=== PATIENT | male | born 1965 | race Caucasian/White ===

== ENCOUNTER 2024-06-10 22:13 | Inpatient (IN) | payer MEDICARE, SELFPAY ==
--- NOTE | ~2024-06-10 | XR_ITS ---
EXAMINATION: XR ABDOMEN KUB CLINICAL INDICATION: Constipation. COMPARISON: None available. TECHNIQUE: AP view of the abdomen. FINDINGS: The bowel gas pattern is normal with no evidence of ileus or obstruction. There are scattered retained stool. No unusual soft tissue calcifications are noted. The bones are unremarkable. XR/XR KUB IMPRESSION: Nonobstructive bowel gas pattern. Scattered retained stool. Electronically signed by: Sam Jimenez MD 06/11/2024 01:57 AM EDT
--- NOTE | ~2024-06-10 | US_ITS ---
EXAMINATION: US SCROTUM CLINICAL INFORMATION: Scrotal swelling and pain.. COMPARISON: None available. TECHNIQUE: A sonogram of the scrotum was performed assessing govea-scale appearance and color Doppler flow. Spectral Doppler analysis of the arterial and venous flow were performed in the testes bilaterally. FINDINGS: RIGHT: Right testicle measures 4.0 x 2.0 x 2.8 cm, volume 12 mL. Question few right testicular microliths. No suspicious focal testicular parenchymal lesions are visualized. Spectral Doppler analysis of the arterial and venous flow is normal in the right testis. Right epididymal head is normal in size. Two, 0.7 cm or less right epididymal cysts versus spermatoceles. No significant right hydrocele No varicocele is seen. Right epididymal Doppler flow is normal. LEFT: Left testicle measures 3.4 x 2.6 x 3.3 cm, volume 15 mL. No focal testicular parenchymal lesions are visualized. Spectral Doppler analysis of the arterial and venous flow is normal in the left testis. Left epididymal head is normal in size. Moderate left hydrocele demonstrating low level internal echoes. No varicocele is seen. Left epididymal Doppler flow is normal. US/US scrotum doppler IMPRESSION: Moderate left hydrocele demonstrating low level internal echoes, probably chronic. Additional findings, as above. Electronically signed by: Troy Willett MD 06/14/2024 04:29 PM EDT RP
--- NOTE | ~2024-06-10 | XR_ITS ---
EXAMINATION: XR ABDOMEN KUB CLINICAL INDICATION: Constipation. COMPARISON: Abdomen radiograph 06/10/2024. TECHNIQUE: AP view of the abdomen. FINDINGS: Nonobstructive bowel gas pattern. Mild to moderate amount of radiodense stool in the rectum. No significant colonic stool burden. No unusual soft tissue calcifications. Partially seen median sternotomy. No acute osseous findings. XR/XR KUB IMPRESSION: Nonobstructive bowel gas pattern. Mild to moderate amount of radiodense stool in the rectum. Electronically signed by: Lorrie Pacheco MD 06/17/2024 03:19 PM EDT
--- NOTE | ~2024-06-10 | CT_ITS ---
CT HEAD WITHOUT IV CONTRAST CLINICAL INFORMATION: seizure COMPARISON: Prior CT scan June 11, 2024 TECHNIQUE: Department standard protocol. This CT examination was performed using dose optimization techniques as appropriate, variously including the following: *Automated exposure control *Adjustment of mA and/or kV according to patient size (this includes techniques or standardized protocols for targeted exams where dose is matched to indication/reason for exam; i.e. extremities or head) *Use of iterative reconstruction technique DLP: 1036 mGy-cm FINDINGS: Exam limited by motion artifact. CEREBRAL HEMISPHERES: There is no evidence of intra-axial or extra-axial mass, hemorrhage or acute infarct. BRAIN PARENCHYMA: Normal govea-white matter differentiation. SUBDURAL SPACE: No bleed. BASAL GANGLIA AND PINEAL GLAND: Unremarkable VENTRICLES: Symmetric and normal in size. CEREBELLUM AND BRAINSTEM: No space-occupying mass, hemorrhage or acute infarct. CEREBELLOPONTINE ANGLES: No lesion found. ORBITS: No intraorbital mass. VESSELS: Unremarkable SKULL BASE: Unremarkable INCLUDED SINUSES AT SKULL BASE: Clear SKULL AND SKIN: No fracture or bone lesion found. CT/CT head/brain wo IV con IMPRESSION: 1. Markedly limited nondiagnostic exam due to motion artifact. 2. No definite CT evidence of intracranial space-occupying mass, large bleed . If patient is symptomatic would recommend repeat of this exam in 24 hours. Electronically signed by: Ling Rodgers MD 06/26/2024 10:24 AM EDT
--- NOTE | ~2024-06-10 | CT_ITS ---
EXAMINATION: CT HEAD WITHOUT CONTRAST CLINICAL INFORMATION: Fall. COMPARISON: None available. TECHNIQUE: Contiguous axial imaging was performed from the skull base to vertex without intravenous administration of contrast. This CT examination was performed using dose optimization techniques as appropriate, variously including the following: *Automated exposure control *Adjustment of mA and/or kV according to patient size (this includes techniques or standardized protocols for targeted exams where dose is matched to indication/reason for exam; i.e. extremities or head) *Use of iterative reconstruction technique DLP: 784 mGy-cm FINDINGS: There is no acute intracranial hemorrhage. There is no evidence of acute/subacute cerebral or cerebellar infarction. There is no midline shift or mass effect. No extra-axial fluid collection. The ventricles are normal in size. The orbits are symmetric and within normal limits. The calvarium is intact. The mastoid air cells are well aerated. There is scattered ethmoid air cell mucosal disease. There is maxillary sinus mucosal disease. CT/CT head/brain wo IV con IMPRESSION: No acute intracranial pathology. Electronically signed by: Vasquez Ortega DO 06/11/2024 04:55 PM EDT
--- NOTE | ~2024-06-10 | US_ITS ---
EXAMINATION: US SCROTUM CLINICAL INFORMATION: Scrotal swelling and pain.. COMPARISON: None available. TECHNIQUE: A sonogram of the scrotum was performed assessing govea-scale appearance and color Doppler flow. Spectral Doppler analysis of the arterial and venous flow were performed in the testes bilaterally. FINDINGS: RIGHT: Right testicle measures 4.0 x 2.0 x 2.8 cm, volume 12 mL. Question few right testicular microliths. No suspicious focal testicular parenchymal lesions are visualized. Spectral Doppler analysis of the arterial and venous flow is normal in the right testis. Right epididymal head is normal in size. Two, 0.7 cm or less right epididymal cysts versus spermatoceles. No significant right hydrocele No varicocele is seen. Right epididymal Doppler flow is normal. LEFT: Left testicle measures 3.4 x 2.6 x 3.3 cm, volume 15 mL. No focal testicular parenchymal lesions are visualized. Spectral Doppler analysis of the arterial and venous flow is normal in the left testis. Left epididymal head is normal in size. Moderate left hydrocele demonstrating low level internal echoes. No varicocele is seen. Left epididymal Doppler flow is normal. US/US scrotum IMPRESSION: Moderate left hydrocele demonstrating low level internal echoes, probably chronic. Additional findings, as above. Electronically signed by: Troy Willett MD 06/14/2024 04:29 PM EDT RP
[2024-06-10 22:19] VITALS: BP 116/70; PULSE 72; O2SAT 96
[2024-06-10 22:23] VITALS: BMI 25.5
[2024-06-10 22:24] VITALS: BP 112/69; PULSE 72; RESP 16; TEMP 36.6; O2SAT 100
--- NOTE | 2024-06-10 22:31 | ECG_ITS ---
Test Reason : QTC Blood Pressure : / mmHG Vent. Rate : 066 BPM Atrial Rate : 066 BPM P-R Int : 202 ms QRS Dur : 086 ms QT Int : 410 ms P-R-T Axes : 009 044 061 degrees QTc Int : 429 ms Normal sinus rhythm Normal ECG When compared with ECG of 11-JAN-2015 14:48, No significant change was found Referred By: Martine Marcano Electronically Signed By:BALAJI MOE
--- NOTE | 2024-06-10 22:47 | ED.PSYCH ---
HPI - Psych General Chief Complaint: Psychiatric Symptoms Stated Complaint: behavioral eval. from dementia facility Time Seen by Provider: 06/10/24 22:25 Source: family, EMS and old records reviewed Mode of arrival: EMS Limitations: altered mental status History of Present Illness ED Provider: OTONIEL LEYVA Narrative: 59 yo male with PMH of MV replacement on xarelto, HTN, HLD, frontotemporal dementia at memory unit currently he is on seroquel and abillify and escitalopram. mentioned trazodone but I do not see it on his MAR from SNF. He comes in with c/o worsening aggression and violence towards staff. He just had negative urine culture done as well. He grabbed staff by the shoulders. They understand this might be the disease progression but they are concerned about managing his behaviors and current med regimen is not working MD complaint: other (agitation) Onset (ago): week(s) (few) Duration: getting worse History of same: Yes Relieving factors: none Exacerbating factors: none Context: other Associated psychiatric symptoms: none Associated symptoms: other ( noted some new urinary incontinence so UA was checked and negative) Treatments prior to arrival: none Related Data Allergies Allergy/AdvReac Type Severity Reaction Status Date / Time No Known Allergies Allergy Verified 06/10/24 22:24 [No Known Allergies*] Review of Systems Review of Systems: ROS unable to be obtained due to altered mental status [facility] [place] Past Medical History Source: old records reviewed and obtained from family Medical History Hyperlipidemia HTN (hypertension) Frontotemporal dementia Surgical History Mitral valve replaced Social History Social History (Updated 06/10/24 @ 22:53 by Martine Marcano DO) Unable to assess alcohol history related to: Unable to respond Patient Tobacco Use Status: Tobacco use Unknown Smoked in Last 30 Days: No Use of substances other than those prescribed or required for medical reasons: Unable to respond Advance Directives: Yes Advance Directives Information Provided: No Advance Directives on File: No Physical Exam Vital Signs: Vital Signs: Last Vital Signs Temp 97.8 F 06/10/24 22:24 Pulse 72 06/10/24 22:24 Resp 16 06/10/24 22:24 BP 112/69 06/10/24 22:24 Pulse Ox 100 06/10/24 22:24 O2 Del Method Room Air 06/10/24 22:24 BMI result Body Mass Index 25.5 Appearance: Alert. Seems to recognize family but otherwise not oriented. No acute distress. Eyes: Pupils equal, round and reactive to light. ENT: Pharynx normal. atraumatic, birthmark at left eyebrown Neck: Normal inspection. Neck supple. CVS: Normal heart rate and rhythm. Pulses normal. Respiratory: No respiratory distress. Breath sounds normal. Abdomen: Soft and non-tender. Skin: Skin warm and dry. Normal skin color. Extremities: No lower extremity edema. Neuro: cannot participate No motor deficit. No sensory deficit. Course Course Course Narrative: signed out to Dr. Kumar pending UA/KUB result Medical Decision Making Medical Decision Making [facility] Narrative: 59 yo male with PMH of MV replacement on xarelto, HTN, HLD, frontotemporal dementia here with aggression that is worsening at SNF at this time will need labs, UA, KUB for constipation - SNF has sent patient in for eval as he has has been aggressive with staff. At this time will medically clear him and refer to [facility] Differential Diagnosis Differential Diagnoses: The differential diagnosis associated with the presentation includes constipation, UTI, dementia with behavior changes Admission/Observation Consideration of admission/observation: Escalation of care including admission/observation considered physician observation started at 1055pm pending further workup and CARE team Lab Data [facility] Lab Attestation statement: I reviewed the patient's lab results. 06/10/24 23:25 06/10/24 23:25 Labs: Lab Results 06/10/24 Range/Units 23:25 WBC 5.5 (4.8-10.8) X10*3/uL RBC 4.18 L (4.60-5.80) X10*6/uL Hgb 12.9 L (14.0-18.0) g/dl Hct 36.9 L (42.0-52.0) % MCV 88.3 (80.0-98.0) fL MCH 30.9 (27.0-33.0) pg MCHC 35.0 (31.0-36.0) g/dl RDW 11.9 (11.0-16.0) % Plt Count 168 (160-400) X10*3/uL MPV 9.1 L (9.4-12.4) fL Immature Gran % (Auto) 0.4 (0.0-0.4) % Neut % (Auto) 49.5 (45-73) % Lymph % (Auto) 35.3 (20-40) % [place] % (Auto) 11.3 H (2-11) % Eos % (Auto) 3.3 (0-4) % Baso % (Auto) 0.2 (0-2) % Lymph # (Auto) 1.9 (1.2-4.9) X10*3/uL [place] # (Auto) 0.6 (0.1-1.2) X10*3/uL Eos # (Auto) 0.2 (0.0-0.4) X10*3/uL Baso # (Auto) 0.0 (0.0-0.2) X10*3/uL Abs Immat Gran (auto) 0.02 (0.00-0.03) X10*3/uL Absolute Neuts (auto) 2.7 (2.0-8.3) x10*3/uL Absolute Nucleated RBC 0.000 (0.0-0.012) X10*3/uL Nucleated RBC % (auto) 0.0 (0.0-0.2) /100WBC Sodium 141 (135-145) mmol/L Potassium 3.9 (3.3-5.1) mmol/L Chloride 107 (96-108) mmol/L Carbon Dioxide 27 (22-29) mmol/L Anion Gap 11 L (12-20) BUN 27 H (9-16) mg/dL Creatinine 1.03 (0.5-1.4) mg/dL Estim Creat Clear Calc 80.2 Estimated GFR > 60 Random Glucose 105 (60-115) mg/dL Calcium 8.9 (8.4-10.2) mg/dL Magnesium 2.2 (1.6-2.6) mg/dL Total Bilirubin 0.4 (0.0-1.0) mg/dL Direct Bilirubin 0.1 (0.0-0.5) mg/dL AST 21 (5-37) U/L ALT 21 (0-40) U/L Alkaline Phosphatase 75 (39-117) U/L Total Protein 6.0 L (6.5-8.0) g/dL Albumin 3.7 (3.5-5.0) g/dL TSH 1.43 (0.32-4.0) uIU/mL Independent Interpretation I performed an independent interpretation of an: EKG and Plain X-Ray Interpretation: Rate: 65 Rhythm: NSR [place]: normal Normal P waves. Normal MATTI. Normal QRS complex. ST T wave : inverted t wave V1, no AMANDEEP qTC: 428 prior studies: no acute ischemia The study has been interpreted contemporaneously by me. . Radiology Impression Discussion of test interpretation with radiology: I have reviewed the radiologist's reading. Independent Historian Clinical information obtained from an independent historian. History obtained from or confirmed by: Spouse and EMS External Record Review External record reviewed: Outpatient record Discharge Plan Discharge Clinical Impression: Fronto-temporal dementia Patient Disposition: Still a Patient Interventions: [place]-Suicide Risk Severity Scale Last Done: 06/10/24 23:50 Print Language: Amharic
[2024-06-10 23:30] LABS: MANUAL DIFF FLAG NO
[2024-06-10 23:31] LABS: Basophils Percent Auto 0.2 % (0-2); Eosinophils Absolute Auto 0.2 X10*3/uL (0.0-0.4); Eosinophils Percent Auto 3.3 % (0-4); Hematocrit 36.9 % (42.0-52.0); Hemoglobin 12.9 g/dl (14.0-18.0); Imm Gran Abs Auto 0.02 X10*3/uL (0.00-0.03); Imm Gran Pct Auto 0.4 % (0.0-0.4); Lymphocytes Absolute Auto 1.9 X10*3/uL (1.2-4.9); Lymphocytes Percent Auto 35.3 % (20-40); Mean Corpuscular Hemoglobin 30.9 pg (27.0-33.0); Mean Corpuscular Volume 88.3 fL (80.0-98.0); Mean Platelet Volume 9.1 fL (9.4-12.4); Monocytes Absolute Auto 0.6 X10*3/uL (0.1-1.2); Monocytes Percent Auto 11.3 % (2-11); Neutrophils Absolute Auto 2.7 x10*3/uL (2.0-8.3); Neutrophils Percent Auto 49.5 % (45-73); Platelet Count 168 X10*3/uL (160-400); Red Blood Count 4.18 X10*6/uL (4.60-5.80); Red Cell Distribution Width 11.9 % (11.0-16.0); White Blood Count 5.5 X10*3/uL (4.8-10.8)
[2024-06-10 23:55] LABS: Alanine Aminotransferase 21 U/L (0-40); Albumin Level 3.7 g/dL (3.5-5.0); Alkaline Phosphatase 75 U/L (39-117); Anion Gap 11 (12-20); Aspartate Amino Transferase 21 U/L (5-37); Bilirubin Direct 0.1 mg/dL (0.0-0.5); Bilirubin Total 0.4 mg/dL (0.0-1.0); Blood Urea Nitrogen 27 mg/dL (9-16); Calcium 8.9 mg/dL (8.4-10.2); Carbon Dioxide 27 mmol/L (22-29); Chloride 107 mmol/L (96-108); Creatinine Clr Calc Pharmacy 80.2; Estimated Glomerular Filt Rate > 60; Glucose Random 105 mg/dL (60-115); Magnesium 2.2 mg/dL (1.6-2.6); Potassium 3.9 mmol/L (3.3-5.1); Sodium 141 mmol/L (135-145)
[2024-06-11] VITALS (10 sets, daily range): BP systolic 89–145; BP diastolic 50–84; PULSE 75–93; RESP 15–19; TEMP 36.6–36.9; O2SAT 95–98
[2024-06-11 00:09] LABS: TSH reflex Free T4 1.43 uIU/mL (0.32-4.0)
[2024-06-11] MEDS: QUEtiapine Fumarate 25 MG TABLET PO ×2 (01:04→20:45)
--- NOTE | 2024-06-11 01:15 | PC.NURSE ---
pt attempted to use urinal to obtain urine, unable to obtain and soiled clothing. new hospital clothing provided. pt changed into hospital pants, own white shirt remains in place due to tactile stimulation from hospital gown. warm blankets and pillows provided, pt restless and confused at his baseline, medicated per provider order to allow for respite.
[2024-06-11] MEDS: QUEtiapine Fumarate 50 MG TABLET PO (05:06)
[2024-06-11] MEDS: OLANZapine 10 MG VIAL IM (05:40)
[2024-06-11] MEDS: Midazolam HCl/PF 2 MG/2 ML VIAL 10 MG IM (05:40)
--- NOTE | 2024-06-11 05:46 | PC.NURSE ---
4 pt restraints applied per provider order, pt continues violent, combative and agitation. medicated with xyprexa 10mg IM and versed 10mg IM per provider order.
--- NOTE | 2024-06-11 06:01 | PC.NURSE ---
pt awake, began climbing oob and attempting to remove brief and pants. clean brief applied and pt assisted back to stretcher with linseed oil order filler. pt minimally redirectable, continually attempting to wander from room. provider gave order for seroquel, administered without difficulty, pt continues attempting to walk around and becoming increasinginly agitated. security assisted with redirecting patient to room, pt continues with confusion and agitation, now becoming combative and postering, swinging arms and making fists. pt swung fists at this rn and security, attempting to push past staff to leave. additional security called, pt assisted to stretcher, attempting to kick bite and hit staff. provider called to bedside, emergent meds ordered for chemical sedation and adminstered with additional rn assist.
--- NOTE | 2024-06-11 06:49 | PC.NURSE ---
all restraints removed at this time, sitter remains at watch. pt confused but allowing for vitals and repositioning.
--- NOTE | 2024-06-11 08:49 | PC.NURSE ---
Late charting d/t pt care. Resumed care of pt at 0700. Pt resting in bed quietly, respirations even and unlabored, no increased wob/sob noted, NSR on conservator artifacts HR-70s. 1:1 sitter at bedside for pt safety d/t recent aggression. Pt incontinent of urine, washed up and repositioned in bed. Call samaniego within reach, all needs met at this time.
--- NOTE | 2024-06-11 09:38 | MHC.CARE ---
Care team has spoken with patient's , who expresses concern re: behaviors which are believed to have worsened once patient became fully incontinent. Increased agitation, irritability, poor sleep. Reports that she feels he is at the end of fighting, and that the EXPLORATION ENGINEER at the [facility], Deyanira Schilling has been trying to medicate him to keep him more calm, however is struggling. Patient has no MH tx hx, was dx with ADHD as an adult but never took medication. Drank daily but no detox needs, no interference with work, no hx of withdrawal sx. Request for psych consult regarding facilitys apparent desire for medication support, as he is on locked Dementia unit at [facility].
[2024-06-11 09:49] LABS: Appearance Urine Clear; Color Urine Yellow; Glucose Urine UA Negative (Negative); Leukocyte Esterase Urine Negative (Negative); Nitrite Urine Negative (Negative); PH 6.5 (5.0-9.0); Urine Blood Negative (Negative); Urine Ketones Negative (Negative); Urine Protein Trace mg/dL (Neg-Trace)
--- NOTE | 2024-06-11 11:02 | PC.NURSE ---
updated on plan for patient to be seen by psych , stating she will be in to sit with patient shortly
--- NOTE | 2024-06-11 12:57 | PC.NURSE ---
Pt up out of bed with 1:1 sitter, steady gait. Pt easily redirectable back to bed.
--- NOTE | 2024-06-11 13:32 | P.CNPS_ITS ---
History of Present Illness Date of Service: 06/11/2024 Chief Complaint: combative behaviors Discussed with referring provider: Yes Sources of Information: patient interviewed, chart reviewed and crisis/core team assessment reviewed HPI Narrative: Mr. Mendez is a 59 year-old male with hx of frontotemporal dementia who was brought from the [facility] due to combative behaviors. It appears pt has been dx with dementia for more than 5 years. He transitioned to [facility] after being at home back in 04/2024. He started having combative behaviors few weeks ago. Collateral information from the [facility] report pt started grabbing staff and others. He has severe receptive and expressive aphasia. In the ED, cbc with normocytic anemia, no leukocytosis. CMP no electrolyte abnormality, with slightly elevated BUN 27, Cr 1.03 with creatinine clearance of 83. UA not suggestive of UTI. Utox negative. Head CT without acute finding. EKG normal sinus rhythm. Pt not able to provide any meaningful information due to severe aphasia. Pt had episodes of combative behaviors overnight. He required IM medications. He is grabbing things that are not there. He needs help being fed. He ambulates purposeless. Collateral information from her outpatient psychology associate who reports she tried low doses of seroquel 25mg po BID. He had been on abilify for several years. He has been also on lexapro. Sleeping has been off. [facility] Medical History Hyperlipidemia HTN (hypertension) Frontotemporal dementia Surgical History Mitral valve replaced Diagnostics Vital Signs (24Hr): Vital Signs - 24 hr 06/10/24 22:24 06/11/24 02:00 06/11/24 04:00 Temperature 97.8 F Pulse Rate 72 Respiratory Rate 16 18 18 Blood Pressure 112/69 Pulse Oximetry 100 Oxygen Delivery Method Room Air 06/11/24 06:00 06/11/24 06:31 06/11/24 06:46 Temperature Pulse Rate 82 76 77 Respiratory Rate 19 16 18 Blood Pressure 89/50 L 100/57 L 101/59 L Pulse Oximetry 95 95 95 Oxygen Delivery Method Room Air Room Air Room Air 06/11/24 09:39 Temperature 97.9 F Pulse Rate 75 Respiratory Rate 15 Blood Pressure 120/78 Pulse Oximetry 97 Oxygen Delivery Method Room Air BMI result Body Mass Index 25.5 Labs 06/10/24 23:25 06/17/24 13:55 Labs: Laboratory Results - last 48 hr 06/10/24 06/11/24 23:25 09:38 WBC 5.5 RBC 4.18 L Hgb 12.9 L Hct 36.9 L MCV 88.3 MCH 30.9 MCHC 35.0 RDW 11.9 Plt Count 168 MPV 9.1 L Immature Gran % (Auto) 0.4 Neut % (Auto) 49.5 Lymph % (Auto) 35.3 [place] % (Auto) 11.3 H Eos % (Auto) 3.3 Baso % (Auto) 0.2 Lymph # (Auto) 1.9 [place] # (Auto) 0.6 Eos # (Auto) 0.2 Baso # (Auto) 0.0 Abs Immat Gran (auto) 0.02 Absolute Neuts (auto) 2.7 Absolute Nucleated RBC 0.000 Nucleated RBC % (auto) 0.0 Sodium 141 Potassium 3.9 Chloride 107 Carbon Dioxide 27 Anion Gap 11 L BUN 27 H Creatinine 1.03 Estim Creat Clear Calc 80.2 Estimated GFR > 60 Random Glucose 105 Calcium 8.9 Magnesium 2.2 Total Bilirubin 0.4 Direct Bilirubin 0.1 AST 21 ALT 21 Alkaline Phosphatase 75 Total Protein 6.0 L Albumin 3.7 TSH 1.43 Urine Color Yellow Urine Appearance Clear Urine pH 6.5 Ur Specific [place] 1.020 Urine Protein Trace Urine Glucose (UA) Negative Urine Ketones Negative Urine Blood Negative Urine Nitrite Negative Ur Leukocyte Esterase Negative Imaging Radiology Impressions: ITS Impressions KUB X-Ray 06/10/24 22:44 IMPRESSION: Nonobstructive bowel gas pattern. Scattered retained stool. Electronically signed by: Sam Jimenez MD 06/11/2024 01:57 AM EDT RP Mental Status Exam Mental Status Exam Narrative: Appearance: wearing hospital gown, brief eye contact, poor attention Behavior: not engaging in much conversation Psychomotor: some restlessness Speech: severe receptive and expressive aphasia Mood: unable to assess Affect: somewhat restless SI: unable to assess HI: unable to assess but not signs of it Insight/judgment: impaired x 2. memory/cog: alert, due to severe aphasia unable to assess orientation. severe impairments, not able to follow directions. Medications Allergies Allergies Allergy/AdvReac Type Severity Reaction Status Date / Time No Known Allergies Allergy Verified 06/10/24 22:24 [No Known Allergies*] Assessment & Plan Assessment & Plan (1) Frontotemporal dementia with behavioral disturbance: Status: Acute Code(s): G31.09 - Other frontotemporal neurocognitive disorder; F02.818 - Dementia in other diseases classified elsewhere, unspecified severity, with other behavioral disturbance Plan inpt level of care for safety containment and stabilization. Total time managing care of this patient today ____ minutes.
--- NOTE | 2024-06-11 13:46 | PC.NURSE ---
med rec completed using med list provided by facility patient resides at
--- NOTE | 2024-06-11 15:29 | PC.NURSE ---
updated that at this time plan is for patient to be potentially admitted to [facility] floor tomorrow if a bed opens up. stating she was told her would be moved tonight to a quiet spot . educated that while all attempts will be made to decrease noise/light the ED can be loud and busy throughout the night
[2024-06-11] MEDS: Rivaroxaban 20 MG TABLET PO (16:06)
--- NOTE | 2024-06-11 19:05 | PC.NURSE ---
This RN assumed pt care @ 1900. Pt ambulates with a steady gait. Sitter remains Pts fam at bedside. Plan of care ongoing.
--- NOTE | 2024-06-11 20:02 | PC.NURSE ---
pt walking around unit with family, gait even and steady. mood is stable. no concerns at this time. sitter at bedside
[2024-06-11] MEDS: OLANZapine 10 MG TABLET PO (23:20)
--- NOTE | 2024-06-11 23:22 | PC.NURSE ---
pt standing in hallway, increased agitation, hard to redirect. assist back to bed, pt agreeable when i told him what time it was. pt medicated with PO zyprexa at this time. currently sitting in bed with a snack. sitter at bedside
--- NOTE | 2024-06-12 00:43 | PC.NURSE ---
redirected pt for awhile, assisted back into bed, resting comfortably
[2024-06-12] MEDS: Midazolam HCl/PF 2 MG/2 ML VIAL 4 MG IM (03:12)
--- NOTE | 2024-06-12 03:31 | PC.NURSE ---
pt walking around in room, incont of urine and BM. pt fighting staff attempting to help him wash and change, aware. security called for assist. no physical restraints needed. redirected back to room, pt medicated per NOV at 302 with 4mg IM versed. assist with changing at that time. pt resting in bed comfortably at 332, refused BP cuff but left O2 finger probe on for monitoring.
[2024-06-12] MEDS: OLANZapine ODT 10 MG TAB.RAPDIS 20 MG TRANSLINGU (03:54)
--- NOTE | 2024-06-12 03:55 | PC.NURSE ---
pt in bed, not aggressive at this time, wants to get out of bed. pt medicated per NOV with zyprexa SL
[2024-06-12 04:00] VITALS: PULSE 75; RESP 16; O2SAT 97
--- NOTE | 2024-06-12 04:43 | PC.NURSE ---
pt awake and out of bed, incont of urine and BM. assist with changing. no security needed at this time. tolerated well. pt back in bed
[2024-06-12 06:21] VITALS: BP 135/72; PULSE 76; RESP 16; TEMP 36.6; O2SAT 96
--- NOTE | 2024-06-12 07:31 | PHA.MEDREC ---
Pharmacy Consult ? Medication Reconciliation Pharmacy has reviewed the medication reconciliation. Jaimee Rogers completed med rec via [employer] list
--- NOTE | 2024-06-12 09:11 | PC.NURSE ---
pt incontinent of stool in his brief - changed out of his brief and pants, skin care complete. pt now resting in recliner with eyes closed
[2024-06-12 09:34] VITALS: BP 145/75; PULSE 89; RESP 18; O2SAT 97
[2024-06-12] MEDS: Atorvastatin Calcium 80 MG TABLET PO (09:35)
[2024-06-12] MEDS: QUEtiapine Fumarate 25 MG TABLET PO ×3 (09:36→20:56)
[2024-06-12] MEDS: Losartan Potassium 25 MG TABLET PO (09:36)
[2024-06-12] MEDS: amLODIPine Besylate 2.5 MG TABLET PO (09:36)
--- NOTE | 2024-06-12 14:11 | MHC.EDTECH ---
Patient sleeping soundly, with family at bedside. Will check vital signs when patient is awake. AIDA lima.
--- NOTE | 2024-06-12 14:58 | MHC.EDTECH ---
Assisted family with changing urine soiled brief. Patient calm and cooperative although confused during process.
[2024-06-12] MEDS: Rivaroxaban 20 MG TABLET PO (18:03)
[2024-06-12 18:46] VITALS: BP 101/70; PULSE 93; RESP 16; TEMP 36.4; O2SAT 97
[2024-06-12] MEDS: LORazepam 0.5 MG TABLET PO (19:11)
--- NOTE | 2024-06-12 19:19 | PC.NURSE ---
pt walking with family around the ED, his is reporting increased agitation,and increased difficulty redirecting him back to his room. He was medicated with his prn po meds as charted without difficulty.
--- NOTE | 2024-06-12 20:35 | PC.NURSE ---
at this time, pt is sitting in room with family, pt does not appear agitated at this time.
[2024-06-12] MEDS: traZODone HCL 25 MG HALFTAB PO (20:57)
[2024-06-12] MEDS: OXcarbazepine 150 MG TABLET PO (20:57)
--- NOTE | 2024-06-12 21:58 | PC.NURSE ---
pt wandering around hallways at this time, pt with sitter and re-directed back to room.
--- NOTE | 2024-06-12 22:08 | MHC.EDTECH ---
This tech with assistance from patients cleaned patient of feces and urine and put patient in new brief and pajama bottoms provided by family. Patient resting comfortably in recliner with family at bedside.
--- NOTE | 2024-06-12 22:09 | MHC.EDTECH ---
Patient comfortable and resting/sleeping in recliner at this time. Discussed with patients AIDA Giles and agreed to hold on vitals until patient was no longer resting quietly.
--- NOTE | 2024-06-12 23:28 | PC.NURSE ---
pt in recliner at this time, pt appears to be sleeping, respirations even and unlabored. sitter at bedside.
[2024-06-13] VITALS (10 sets, daily range): BP systolic 88–128; BP diastolic 54–87; PULSE 68–85; RESP 12–22; TEMP 36.6; O2SAT 93–98
[2024-06-13] MEDS: OLANZapine 10 MG VIAL IM (03:15)
[2024-06-13] MEDS: Midazolam HCl/PF 2 MG/2 ML VIAL 10 MG IM (03:23)
--- NOTE | 2024-06-13 03:24 | PC.NURSE ---
pt extremely agitated at this time. pt hitting staff and unable to re direct. security at bedside. aware, pt medicated per nov. unable to obtain initial set of vitals due to agitation. pt assisted into bed with security at bedside. 1:1 sitter. override of versed in pyxis due to provider being unable to order medication concentration needed.
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
--- NOTE | 2024-06-13 04:15 | PC.NURSE ---
one hour of medical restraints completed at this time, pt appears to be sleeping, respirations even and unlabored. dr. lambert aware of pt low BP.
--- NOTE | 2024-06-13 06:21 | PC.NURSE ---
pt continues to sleep, respirations even and unlabored. sitter at bedside.
--- NOTE | 2024-06-13 07:41 | PC.NURSE ---
report recieved from previous RN, pateint asleep comfortably on hospital stretcher, sitter remains at bedside, per RN patient got agitated last night requiring IM medications. plan of care remains ongoing
--- NOTE | 2024-06-13 08:59 | PC.NURSE ---
pateint sleeping on stretcher, at bedside and sitter at bedside, patient with 9am medications due, per she would like to hold off on giving them to allow the patient to sleep. all safety maintained at this time
--- NOTE | 2024-06-13 10:09 | PC.NURSE ---
patient asleep on stretcher, still requesting we let him sleep for a little longer before giving morning medications
--- NOTE | 2024-06-13 11:37 | PC.NURSE ---
mother in law at bedside, family brought patient food, patient remains asleep on stretcher at this time, this rn updated family on plan to try to get patient up and medicate at lunch time. family agreeable with plan at this time
--- NOTE | 2024-06-13 11:39 | PC.NURSE ---
kitchen called to ensure patient gets finger foods for lunch tray, per family last night was brought food that was difficult for patient to eat
--- NOTE | 2024-06-13 12:27 | PC.NURSE ---
this RN and EDT woke patient up, patient still somnolent, pericare provided and patient changed into new brief without difficulty. attempted to medicated patient with AM medications, patient unable to tolerate PO medications at this time will attempt to medicate again when patient is more awake
[2024-06-13] MEDS: OXcarbazepine 150 MG TABLET PO ×2 (12:49→20:42)
[2024-06-13] MEDS: ARIPiprazole 5 MG TABLET PO (12:50)
[2024-06-13] MEDS: Escitalopram Oxalate 20 MG TABLET PO (12:50)
[2024-06-13] MEDS: amLODIPine Besylate 2.5 MG TABLET PO (12:51)
--- NOTE | 2024-06-13 12:51 | PC.NURSE ---
patient more alert, transferred onto recliner, eating lunch with family, able to put medications in mashed potatoes and have patient take one by one, patient spit out atorvastatin, all other medications able to be tolerated at this time
[2024-06-13] MEDS: Losartan Potassium 25 MG TABLET PO (12:52)
--- NOTE | 2024-06-13 13:31 | PC.NURSE ---
patient ambulating around unit with family members and sitter
--- NOTE | 2024-06-13 14:46 | PC.NURSE ---
1500 dose of oxycarbazepine not given r/t delay in administering morning medications, ok per pharmacy, they do not want to retime medication, will get usual dose at 2100, and be able to remain on schedule.
--- NOTE | 2024-06-13 14:56 | PC.NURSE ---
patient ambulatory around ED with family and sitter, states patient is getting more aggitated, will be medicated with PRN PO medications. all safety maintained
[2024-06-13] MEDS: LORazepam 0.5 MG TABLET PO ×2 (15:03→20:42)
[2024-06-13] MEDS: QUEtiapine Fumarate 25 MG TABLET PO ×2 (15:03→20:42)
--- NOTE | 2024-06-13 16:35 | MHC.EDTECH ---
Hourly round and vitals are not done because Patient is a sleeping
--- NOTE | 2024-06-13 16:40 | PC.NURSE ---
patient asleep on [place] chair in room, family and sitter remain at bedside, all safety maintained at this time
--- NOTE | 2024-06-13 17:20 | PC.NURSE ---
patient family left bedside, patient awoke agitated and wandering, 1:1 at bedside, while walking around patient family member came back , patient pacing becoming aggressive pushing at staff, security to bedside, patient wandering out of room and in hallway with this RN and other staff. PRN PO orders for more ativan to be placed.
[2024-06-13] MEDS: LORazepam 1 MG TABLET 2 MG PO (17:40)
--- NOTE | 2024-06-13 17:45 | PC.NURSE ---
patient able to be convinced to take one pill at a time in pudding, continues to pace around room
--- NOTE | 2024-06-13 18:11 | PC.NURSE ---
patient taking lap around department with sitter, family and float RN
--- NOTE | 2024-06-13 18:40 | PC.NURSE ---
patient continues to walk around unit with family member and sitter, occasionally pushes back at staff when attempted to be redirected but able to walk around with staff, patient occasionally sits on bed to eat food then begins walking again. sitter and family remain at bedside to redirect patient
--- NOTE | 2024-06-13 19:52 | PC.NURSE ---
Assumed care of pt. Pt currently agitated, attended to by 2 ED Techs at this time. Family at bedside. Medications for agitation given prior to chage of shift pending functionality.
[2024-06-13] MEDS: traZODone HCL 25 MG HALFTAB PO (20:42)
[2024-06-14] MEDS: LORazepam 0.5 MG TABLET PO ×3 (00:44→20:03)
[2024-06-14] MEDS: QUEtiapine Fumarate 25 MG TABLET PO ×4 (02:53→20:42)
--- NOTE | 2024-06-14 03:03 | PC.NURSE ---
Pt has remained active during shift, without aggression, redirectable by family and staff. Has been given PRN medications with some effect, tolerating well when crushed in pudding. present indicated the appearance of some testicular swelling. This RN has no prior knowledge of baseline presentation for this patient, but did not note any appreciable swelling; however, MD made aware. Commode brought to room for convenience of personal needs. Sitter remains 1:1 at bedside for assistance and safety.
[2024-06-14] MEDS: OLANZapine 10 MG VIAL IM (05:13)
[2024-06-14] MEDS: Midazolam HCl/PF 2 MG/2 ML VIAL 5 MG IVPUSH (05:14)
--- NOTE | 2024-06-14 05:14 | PC.NURSE ---
Addendum entered by Bob Hein RN 06/14/24 05:50: Also Ok by MD Marcano, STST Versed pulled was single 1mL x 5mg vial dosing, instead of ordered volume Addendum entered by Bob Hein RN 06/14/24 05:45: Versed initially ordered IV push, given IM per ok from MD Marcano Original Note: Pt became acutely aggitated and required IM administration of medications. aware of safety concerns and agreed that IM might be necessary due to increased aggitation.
[2024-06-14 05:24] VITALS: BP 106/65; PULSE 86; RESP 16; TEMP 36.8; O2SAT 97
[2024-06-14 05:45] VITALS: BP 109/59; PULSE 82; RESP 16; TEMP 36.7; O2SAT 95
--- NOTE | 2024-06-14 05:51 | PC.NURSE ---
Pt placed on 2L OP2 for mild O2 desaturation after medicatino administration (88%), with good response (94%).
[2024-06-14 06:00] VITALS: BP 108/63; PULSE 70; RESP 16; TEMP 36.8; O2SAT 96
--- NOTE | 2024-06-14 10:48 | PC.NURSE ---
Patient sleeping soundly, unable to take po meds at this time
[2024-06-14] MEDS: ARIPiprazole 5 MG TABLET PO (14:07)
[2024-06-14] MEDS: Escitalopram Oxalate 20 MG TABLET PO (14:07)
[2024-06-14 14:16] LABS: Amphetamine Screen Urine Not Detected (Not Detect); Barbiturates, Urine Not Detected (Not Detect); Benzodiazepines Screen Urine POSITIVE (Not Detect); Buprenorphine Scr Not Detected (Not Detect); Cannabinoid Screen Urine Not Detected (Not Detect); Cocaine Screen Urine Not Detected (Not Detect); Fentanyl, urine Not Detected (Not Detect); Methadone Screen, Urine Not Detected (Not Detect); Opiate Screen Urine Not Detected (Not Detect); Oxycodone Screen Urine Not Detected (Not Detect); Phencyclidine Screen Urine Not Detected (Not Detect)
--- NOTE | 2024-06-14 15:31 | PC.NURSE ---
spoke to this pts rn procedures on the phone. Deyanira Schilling [phone]. she told this RN that the pts family has reported that the pt has a swollen testicle. Nursing was informed of it last night. MITA pretty informed and US ordered.
[2024-06-14 17:33] VITALS: BMI 24.6
--- NOTE | 2024-06-14 18:24 | PC.ADMIT ---
Pt arrived on the unit with a 12b legal status at 1708. He arrived via wheel chair and came from [facility]. Pt was brought in to ED due to increased agitation, confusion, and a swollen left testicle. Pt has a primary diagnosis of Frontotemporal Dementia, which he was given 8 years ago. Family reports difficulty swallowing, requested swallow eval with Fabiola Velez NP. Pt requires medications to be crushed. Pt is profoundly confused, and has expressive and receptive aphasia. He is A&Ox1. He ambulates without a device, however, is unsteady at times. He requires 1:1 care due to his confusion and unsteady gait. During skin check, this remote mortgage underwriter found several small red bumps on left groin. Family has requested medication adjustment.
[2024-06-14] MEDS: hydrOXYzine HCL 25 MG TABLET PO (18:52)
[2024-06-14 20:00] VITALS: RESP 16
[2024-06-14] MEDS: OXcarbazepine 150 MG TABLET PO ×2 (20:02→20:36)
[2024-06-14] MEDS: Rivaroxaban 20 MG TABLET PO (20:03)
[2024-06-14] MEDS: LORazepam 1 MG TABLET 2 MG PO (21:26)
[2024-06-14] MEDS: HaloperidoL 5 MG TABLET PO (21:27)
--- NOTE | 2024-06-14 21:50 | PM.EVENT ---
Documented by User: Fabiola Velez NP 06/15/24 11:39 Event Note Date of Service: 06/14/24 Event Note: this insurance underwriter adjunct physical education instructor remotely- contacted by AIDA Vasquez on 06/14/24 at 9:57pm, regarding pt increasingly more agitated, swing at staff, not able to be redirected, even after oral administration of haldol 5mg po and ativan 2mg po. ordered haldol 5mg IM, ativan 2mg IM and benadryl 50mg IM Time Spent With Patient Time: Total time managing care of this patient today _0___ minutes. Documented by User: Glynn Granados MD 06/22/24 14:33 Event Note Date of Service: 06/22/24
[2024-06-14 22:25] VITALS: BP 113/64; PULSE 96; RESP 16; TEMP 36.4; O2SAT 95
[2024-06-14] MEDS: diphenhydrAMINE HCL 50 MG/ML VIAL IM (22:26)
[2024-06-14] MEDS: Haloperidol Lactate 5 MG/ML VIAL IM (22:26)
[2024-06-14] MEDS: LORazepam 2 MG/ML VIAL IM (22:27)
--- NOTE | 2024-06-15 00:07 | PC.NURSE ---
Addendum entered by Cam Vasquez RN 06/15/24 01:35: 2300 1. [address] to [address] 2. pt is recumbent in bed and snoring 3. resp effort is regular and unlabored 4. Martha notified of chemical restraints and events of the evening 5. pt evaluated by hospitalist Dr Brambila 6. career technical education instructor provider Danna jefferson update- 7. pt incontinent earlier of urine -local care rendered 8. bladder scan deferred d/t somnolent state. Original Note: 2040 career technical education instructor provider contacted Fabiola Velez the following was reviewed and discussed 1. pt has increasing agitation and safety concerns 2. pt is confused to all spheres-speech is nonsensical and irrelevant 3. pt is hyperkinetic and will not sit or lay down 4. 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 he is impulsive and will move quickly throughout his room 6. he can not be redirected (does not follow commands) 7. pt is disrobing and wearing briefs 8. pt is under continuous 1 to 1 pt observation. 9. pt is requiring additional staff members to provide safety 10. gait is unsteady 11. have given prns Ativan /seroquel/trazadone administered with no improvement of agitated state. please note orders taken via telephone and read back to provider. provider has informed me that she has connection to hospital buffet server issues and can not enter orders. plan 1. Ativan 2 mg po now 2. Haldol 5 mg po now.- 2149 career technical education instructor provider again contacted and informed 1. despite prn haldol 5 mg po and ativan 2 mg po, pt is exhibiting increased agitation and combativeness 3. in order for safe environment 3 staff members are now necessary to maintain safe environment 4. profound confusion 5. pt grabbing staff and pushing them 6. pt has clenched fists and posturing for confrontation 7. due to agitation have been unable to obtain vital signs or bladder scan.please note orders taken via telephone and read back to provider. provider has informed me that she has connection to hospital buffet server issues and can not enter orders. plan 1. chemical restraint Benadryl 50 mg im, Haldol 5 mg im and Ativan im stat 2. if necessary place pt in physical hold to administer ims 2225- chemical restraint initiated( Benadryl 50 mg im Ativan 2 mg im and Haldol 5 mg im) pt is seated on toilet and im injections administered without the need of a physical hold
[2024-06-15 08:00] VITALS: RESP 18
[2024-06-15 08:15] LABS: Estimated Average Glucose 108 mg/dL; Hemoglobin A1C 125.5228 umol/L; Hemoglobin A1c % 5.4 % (<6.0); Total Hemoglobin (HGBA1C) 3515.6493 umol/L
[2024-06-15 08:24] LABS: Alanine Aminotransferase 24 U/L (0-40); Albumin Level 3.8 g/dL (3.5-5.0); Alkaline Phosphatase 78 U/L (39-117); Anion Gap 11 (12-20); Aspartate Amino Transferase 33 U/L (5-37); Bilirubin Total 0.7 mg/dL (0.0-1.0); Blood Urea Nitrogen 15 mg/dL (9-16); Calcium 9.1 mg/dL (8.4-10.2); Carbon Dioxide 26 mmol/L (22-29); Chloride 109 mmol/L (96-108); Cholesterol 121 mg/dL (<200); Creatinine Clr Calc Pharmacy 94.9; Estimated Glomerular Filt Rate > 60; Glucose Fasting 95 mg/dL (60-99); HDL Cholesterol 45 mg/dL (>40); LDL Cholesterol Calculated 62 mg/dL (<100); Potassium 4.1 mmol/L (3.3-5.1); Sodium 142 mmol/L (135-145); Total Protein 6.3 g/dL (6.5-8.0); Triglycerides 71 mg/dL (<150)
[2024-06-15 08:45] LABS: Vitamin B12 411 pg/mL (200-900)
--- NOTE | 2024-06-15 08:56 | HO.PSYADMNOT ---
HPI Date of Service: 06/15/24 Chief Complaint: combative behaviors Sources of Information: patient interviewed, chart reviewed and crisis/core team assessment reviewed HPI Subjective Notes: Section 12B Healthcare Proxy: Yes (invoked) Narrative: Mr. Mendez is a 59 year-old male with hx of frontotemporal dementia who was brought from the [facility] due to combative behaviors. It appears pt has been dx with dementia for more than 5 years. He transitioned to [facility] after being at home back in 04/2024. He started having combative behaviors few weeks ago. Collateral information from the [facility] report pt started grabbing staff and others. He has severe receptive and expressive aphasia. In the ED, cbc with normocytic anemia, no leukocytosis. CMP no electrolyte abnormality, with slightly elevated BUN 27, Cr 1.03 with creatinine clearance of 83. UA not suggestive of UTI. Utox negative. Head CT without acute finding. EKG normal sinus rhythm. Pt not able to provide any meaningful information due to severe aphasia. Pt had episodes of combative behaviors overnight. He required IM medications. He is grabbing things that are not there. He needs help being fed. He ambulates purposeless. Collateral information from her outpatient school psychometrist who reports she tried low doses of seroquel 25mg po BID. He had been on abilify for several years. He has been also on lexapro. Sleeping has been off. Past Psychiatric History: Inpt: none OP: Deyanira Drake NP Past medication trials: abilify, seroquel Medical Evaluation Reviewed: Yes COUNTS INCLUDE 234 BEDS AT THE [facility] Medical History Hyperlipidemia HTN (hypertension) Frontotemporal dementia Surgical History Mitral valve replaced Family History: none Social History: . 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 Substance History: hx of alcohol use. None recently. Trauma History: none Diagnostics Vital Signs (24Hr): Vital Signs - 24 hr 06/14/24 20:00 06/14/24 20:00 06/14/24 22:25 Temperature 97.6 F Pulse Rate 96 Respiratory Rate 16 16 16 Blood Pressure 113/64 Pulse Oximetry 95 Oxygen Delivery Method Room Air BMI result Body Mass Index 24.6 Labs 06/10/24 23:25 06/15/24 07:42 Labs: Laboratory Results - last 48 hr 06/11/24 06/15/24 09:38 07:42 Sodium 142 Potassium 4.1 Chloride 109 H Carbon Dioxide 26 Anion Gap 11 L BUN 15 Creatinine 0.87 Estim Creat Clear Calc 94.9 Estimated GFR > 60 Fasting Glucose 95 Estimat Average Glucose 108 Hemoglobin A1c % 5.4 Calcium 9.1 Total Bilirubin 0.7 AST 33 ALT 24 Alkaline Phosphatase 78 Total Protein 6.3 L Albumin 3.8 Triglycerides 71 Cholesterol 121 LDL Cholesterol, Calc 62 HDL Cholesterol 45 Vitamin B12 411 TSH 1.30 Urine Opiates Screen Not Detected Ur Buprenorphine Scrn Not Detected Ur Oxycodone Screen Not Detected Urine Methadone Screen Not Detected Urine Fentanyl Screen Not Detected Ur Barbiturates Screen Not Detected Ur Phencyclidine Scrn Not Detected Ur Amphetamines Screen Not Detected U Benzodiazepines Scrn POSITIVE H Urine Cocaine Screen Not Detected U Marijuana (THC) Screen Not Detected Imaging Radiology Impressions: ITS Impressions KUB X-Ray 06/10/24 22:44 IMPRESSION: Nonobstructive bowel gas pattern. Scattered retained stool. Electronically signed by: Sam Jimenez MD 06/11/2024 01:57 AM EDT RP Head CT 06/11/24 15:34 IMPRESSION: No acute intracranial pathology. Electronically signed by: Vasquez Ortega DO 06/11/2024 04:55 PM EDT RP Scrotum Ultrasound 06/14/24 15:23 IMPRESSION: Moderate left hydrocele demonstrating low level internal echoes, probably chronic. Additional findings, as above. Electronically signed by: Troy Willett MD 06/14/2024 04:29 PM EDT RP Scrotum Ultrasound 06/14/24 15:23 IMPRESSION: Moderate left hydrocele demonstrating low level internal echoes, probably chronic. Additional findings, as above. Electronically signed by: Troy Willett MD 06/14/2024 04:29 PM EDT RP Meds/Allergies Meds Home Medications ?Medication ?Instructions ?Recorded ?Confirmed ?Type amlodipine 2.5 mg tablet 2.5 mg PO DAILY 06/11/24 06/11/24 History aripiprazole 5 mg tablet 5 mg PO DAILY 06/11/24 06/11/24 History escitalopram oxalate 20 mg tablet 20 mg PO DAILY 06/11/24 06/11/24 History escitalopram oxalate 5 mg tablet 5 mg PO DAILY 06/11/24 06/11/24 History losartan 25 mg tablet 25 mg PO DAILY 06/11/24 06/11/24 History quetiapine 25 mg tablet 25 mg PO Q6H PRN Agitation 06/11/24 06/11/24 History quetiapine 25 mg tablet (Seroquel) 25 mg PO BEDTIME 06/11/24 06/11/24 History rivaroxaban 20 mg tablet (Xarelto) 20 mg PO DAILY@1700 06/11/24 06/11/24 History rosuvastatin 40 mg tablet 40 mg PO DAILY 06/11/24 06/11/24 History Allergies Allergies Allergy/AdvReac Type Severity Reaction Status Date / Time No Known Allergies Allergy Verified 06/10/24 22:24 [No Known Allergies*] Mental Status Exam Mental Status Exam Narrative: Appearance: wearing hospital gown, brief eye contact, poor attention Behavior: not engaging in much conversation Psychomotor: some restlessness Speech: severe receptive and expressive aphasia Mood: unable to assess Affect: somewhat restless SI: unable to assess HI: unable to assess but not signs of it Insight/judgment: impaired x 2. memory/cog: alert, due to severe aphasia unable to assess orientation. severe impairments, not able to follow directions. Assessment & Plan Assessment & Plan (1) Frontotemporal dementia with behavioral disturbance: Status: Acute Code(s): G31.09 - Other frontotemporal neurocognitive disorder; F02.818 - Dementia in other diseases classified elsewhere, unspecified severity, with other behavioral disturbance Plan Mr. Mendez is a 59 year-old male with early onset frontotemporal dementia, now advanced with severe cognitive and memory impairements. Language is marked with severe expressive and receptive aphasia. Pt has HCP which has been invoked. WIll coordination with to sign CV as HCP. He was started on mood stabilizer trileptal over the weekend. PLAN 1. Admit to S1, sect 12a, 1:1 due to intrusive behaviors. 2. continue current medication 3. may need to increase seroquel and spread during the day for impulsive, explosive behaviors. 4. aftercare planning. Patient educated on: diagnosis and medication risk/benefits Reason for continued inpatient stay Substantial Risk for: harm to others and inability to function Statement Statement: I have reviewed the history and physical and performed a pertinent examination on my patient. No changes have occurred unless specified. If the History and Physical was not performed prior to admission, the Hospitalist's service will be consulted for completing the admission physical. Time Spent With Patient Time: Total time managing care of this patient today ____ minutes.
[2024-06-15] MEDS: ARIPiprazole 5 MG TABLET PO (11:54)
[2024-06-15] MEDS: OXcarbazepine 150 MG TABLET PO ×3 (11:54→20:14)
[2024-06-15] MEDS: LORazepam 0.5 MG TABLET PO ×3 (11:54→20:14)
--- NOTE | 2024-06-15 15:44 | MHC.SLORD ---
Speech Language Pathology Order Status: Per RN, Pt getting a bladder scan on arrival. He tolerated his current diet for lunch with assistance. RN reports his had been feeding him soft foods at home. Evaluation postponed until tomorrow.
[2024-06-15 15:54] VITALS: BP 136/84; PULSE 84; RESP 18; O2SAT 99
--- NOTE | 2024-06-15 15:55 | PC.NURSE ---
Cam was visiting with his step mother when he went to the window in the visitor room and outstretched his arms to touch the glass. She reports he then put his hands on the table and turned around while sitting to put himself on his bottom. She stated he did not fall but rather sat to the floor. He did not hit anything and his VS were stable. He was able to stand up quickly and does not appear in any discomfort.
[2024-06-15] MEDS: Rivaroxaban 20 MG TABLET PO (16:33)
[2024-06-15] MEDS: QUEtiapine Fumarate 25 MG TABLET PO ×2 (20:14→22:43)
[2024-06-15] MEDS: traZODone HCL 100 MG TABLET PO (20:14)
[2024-06-15] MEDS: traZODone HCL 50 MG TABLET PO (22:43)
[2024-06-15] MEDS: hydrOXYzine HCL 25 MG TABLET PO (22:43)
[2024-06-15] MEDS: OLANZapine ODT 10 MG TAB.RAPDIS TRANSLINGU (23:09)
[2024-06-15] MEDS: LORazepam 1 MG TABLET PO (23:09)
[2024-06-16] MEDS: LORazepam 1 MG TABLET PO (00:35)
[2024-06-16] MEDS: HaloperidoL 5 MG TABLET PO (00:35)
[2024-06-16] MEDS: diphenhydrAMINE HCL 25 MG CAPSULE PO (00:35)
--- NOTE | 2024-06-16 09:53 | P.PNPSI_ITS ---
Subjective Subjective Date of Service: 06/16/24 Reason For Visit: combative behaviors Subjective Notes: Conditional Voluntary Interim History: Pt had difficulty sleeping, somewhat combative, initially received olanzapine prn po, with no effect. He later received haldol 5mg, ativan, benadryl and slept some hours. During the day, he appears somewhat somnolent but able to get out of bed. He seems to be grabbing thinking that are not there. at baseline severe expressive and receptive aphasia. Met with , provided update. Medication Compliance: Yes Mental Status Exam Mental Status Exam Narrative: Appearance: wearing hospital gown, brief eye contact, poor attention Behavior: not engaging in much conversation Psychomotor: some restlessness Speech: severe receptive and expressive aphasia Mood: unable to assess Affect: somewhat restless SI: unable to assess HI: unable to assess but not signs of it Insight/judgment: impaired x 2. memory/cog: alert, due to severe aphasia unable to assess orientation. severe impairments, not able to follow directions. Diagnostics Vital Signs (24Hr): Vital Signs - 24 hr 06/15/24 15:54 Pulse Rate 84 Respiratory Rate 18 Blood Pressure 136/84 Pulse Oximetry 99 Oxygen Delivery Method Room Air BMI result Body Mass Index 24.6 Labs 06/10/24 23:25 06/15/24 07:42 Labs: Laboratory Results - last 48 hr 06/11/24 06/15/24 09:38 07:42 Sodium 142 Potassium 4.1 Chloride 109 H Carbon Dioxide 26 Anion Gap 11 L BUN 15 Creatinine 0.87 Estim Creat Clear Calc 94.9 Estimated GFR > 60 Fasting Glucose 95 Estimat Average Glucose 108 Hemoglobin A1c % 5.4 Calcium 9.1 Total Bilirubin 0.7 AST 33 ALT 24 Alkaline Phosphatase 78 Total Protein 6.3 L Albumin 3.8 Triglycerides 71 Cholesterol 121 LDL Cholesterol, Calc 62 HDL Cholesterol 45 Vitamin B12 411 TSH 1.30 Urine Opiates Screen Not Detected Ur Buprenorphine Scrn Not Detected Ur Oxycodone Screen Not Detected Urine Methadone Screen Not Detected Urine Fentanyl Screen Not Detected Ur Barbiturates Screen Not Detected Ur Phencyclidine Scrn Not Detected Ur Amphetamines Screen Not Detected U Benzodiazepines Scrn POSITIVE H Urine Cocaine Screen Not Detected U Marijuana (THC) Screen Not Detected Imaging Radiology Impressions: ITS Impressions KUB X-Ray 06/10/24 22:44 IMPRESSION: Nonobstructive bowel gas pattern. Scattered retained stool. Electronically signed by: Sam Jimenez MD 06/11/2024 01:57 AM EDT RP Head CT 06/11/24 15:34 IMPRESSION: No acute intracranial pathology. Electronically signed by: Vasquez Ortega DO 06/11/2024 04:55 PM EDT RP Scrotum Ultrasound 06/14/24 15:23 IMPRESSION: Moderate left hydrocele demonstrating low level internal echoes, probably chronic. Additional findings, as above. Electronically signed by: Troy Willett MD 06/14/2024 04:29 PM EDT RP Scrotum Ultrasound 06/14/24 15:23 IMPRESSION: Moderate left hydrocele demonstrating low level internal echoes, probably chronic. Additional findings, as above. Electronically signed by: Troy Willett MD 06/14/2024 04:29 PM EDT RP Medications Medications Current Medications Acetaminophen (Acetaminophen 325 Mg Tablet) 650 mg PO Q6H PRN PRN Reason: Headache/Pain Mild Scale (1-3) Al Hydroxide/Mg Hydroxide (Magnesium Hydrox/Alum Hydrox 30 Ml Oral.Susp) 30 ml PO Q6H PRN PRN Reason: Heartburn/Nausea Amlodipine Besylate (Amlodipine Besylate 2.5 Mg Tablet) 2.5 mg PO DAILY [facility]; Protocol Last Admin: 06/15/24 11:55 Dose: Not Given Aripiprazole (Aripiprazole 5 Mg Tablet) 5 mg PO DAILY [facility] Last Admin: 06/15/24 11:54 Dose: 5 mg Atorvastatin Calcium (Atorvastatin Calcium 80 Mg Tablet) 80 mg PO DAILY [facility] Last Admin: 06/15/24 11:55 Dose: Not Given Escitalopram Oxalate (Escitalopram Oxalate 20 Mg Tablet) 20 mg PO DAILY [facility] Last Admin: 06/15/24 11:55 Dose: Not Given Hydroxyzine HCl (Hydroxyzine Hcl 25 Mg Tablet) 25 mg PO Q6H PRN PRN Reason: Anxiety Last Admin: 06/15/24 22:43 Dose: 25 mg Lorazepam (Lorazepam 0.5 Mg Tablet) 0.5 mg PO Q4H PRN PRN Reason: anxiety/restlessness Last Admin: 06/15/24 20:14 Dose: 0.5 mg Losartan Potassium (Losartan Potassium 25 Mg Tablet) 25 mg PO DAILY [facility]; Protocol Last Admin: 06/15/24 11:55 Dose: Not Given Magnesium Hydroxide (Milk Of Magnesia 30 Ml Oral.Susp) 30 ml PO DAILY PRN PRN Reason: Constipation Oxcarbazepine (Oxcarbazepine 150 Mg Tablet) 150 mg PO TID [facility] Last Admin: 06/15/24 20:14 Dose: 150 mg Quetiapine Fumarate (Quetiapine Fumarate 25 Mg Tablet) 25 mg PO BEDTIME [facility] Last Admin: 06/15/24 20:14 Dose: 25 mg Quetiapine Fumarate (Quetiapine Fumarate 25 Mg Tablet) 25 mg PO Q6H PRN PRN Reason: Agitation Last Admin: 06/15/24 22:43 Dose: 25 mg Rivaroxaban (Rivaroxaban 20 Mg Tablet) 20 mg PO DAILY@1700 [facility] Last Admin: 06/15/24 16:33 Dose: 20 mg Trazodone HCl (Trazodone Hcl 50 Mg Tablet) 50 mg PO BEDTIME MRX1 PRN PRN Reason: Insomnia Last Admin: 06/15/24 22:43 Dose: 50 mg Trazodone HCl (Trazodone Hcl 100 Mg Tablet) 100 mg PO BEDTIME [facility] Last Admin: 06/15/24 20:14 Dose: 100 mg Allergies Allergies Allergy/AdvReac Type Severity Reaction Status Date / Time No Known Allergies Allergy Verified 06/10/24 22:24 [No Known Allergies*] Assessment & Plan Assessment & Plan (1) Frontotemporal dementia with behavioral disturbance: Status: Acute Code(s): G31.09 - Other frontotemporal neurocognitive disorder; F02.818 - Dementia in other diseases classified elsewhere, unspecified severity, with other behavioral disturbance Plan Mr. Mendez is a 59 year-old male with early onset frontotemporal dementia, now advanced with severe cognitive and memory impairements. Language is marked with severe expressive and receptive aphasia. Pt has HCP which has been invoked. WIll coordination with to sign CV as HCP. He was started on mood stabilizer trileptal over the weekend. PLAN 06/16 will increase trileptal to 300mg po BID. add low dose haldol as seems to be more helpful. no cogwheel on exam. Reason for continued inpatient stay Substantial Risk for: inability to function Time Spent With Patient Time: Total time managing care of this patient today ____ minutes.
[2024-06-16 11:04] VITALS: BP 135/80
[2024-06-16] MEDS: Losartan Potassium 25 MG TABLET PO (11:04)
[2024-06-16 11:05] VITALS: BP 135/80
[2024-06-16] MEDS: amLODIPine Besylate 2.5 MG TABLET PO (11:05)
[2024-06-16] MEDS: Escitalopram Oxalate 20 MG TABLET PO (11:05)
[2024-06-16] MEDS: Atorvastatin Calcium 80 MG TABLET PO (11:05)
[2024-06-16] MEDS: OXcarbazepine 150 MG TABLET PO (11:05)
--- NOTE | 2024-06-16 13:51 | MHC.SL.SWA ---
Speech Pathologist Impression: Adequate oropharyngeal swallow, when oriented to task of eating Risk of Aspiration Due to: Dementia Dysphasia Diet Status: NDD2 w/thins Liquid Consistency and Strategies for Safe Swallow: Liquid Intake Recommendation: Thin Liquid Intake Strategies: Small Sips Solid Food Consistency: Dietary Recommendations: Grnd/Mech Altered (NDD2) Additional Modifications to Solid Foods: Oral Medication Intake: Crushed with Puree Please contact the pharmacy regarding appropriate crushable or liquid drug formulations that are available whenever modified delivery is recommended. Compensatory Strategies and Precautions to be Taken for Safe Swallow: Supervision While Eating and Drinking for Safe Swallow: Total Supervision (1:1) Foods to Avoid: Swallowing Recommended Treatments: Compens. Strategy Educat. Recommendation for Speech: Inpatient Speech Therapy Comment: Pt with advanced dementia, requires total cueing to orient to task of eating, when aware, oropharyngeal coordination WNL. Education ongoing with caregivers, anticipate no further VEGETABLE FARMWORKER intervention indicated at time of d/c, consider if POC transitions to comfort in the future. Frequency/Duration: Daily M-F Date Range for Service Req: Timeline to reassess: Emergency Room Specialist Clinican/Clinical Fellow: No Supervisory Statement: I have reviewed and agree with the student/clinical fellow's documentation: N/A Speech Language Pathologist: Keyanna Shah M.S. CCC-VEGETABLE FARMWORKER
[2024-06-16] MEDS: HaloperidoL 1 MG TABLET 2 MG PO ×2 (15:03→23:45)
[2024-06-16] MEDS: Rivaroxaban 20 MG TABLET PO (17:24)
[2024-06-16 19:36] VITALS: BP 130/74; PULSE 82; RESP 18; TEMP 36.6; O2SAT 97
--- NOTE | 2024-06-16 22:54 | PC.NURSE ---
Upon initial assessment of patient, he is observed sleeping soundly in room. Able to wake for vitals but unable to keep awake to safely take medications. Provider ergonomist notified, and he advised to give meds up until 2230 if patient were to wake up. Patient still sleeping as of this writing.
[2024-06-16] MEDS: traZODone HCL 50 MG TABLET PO (23:45)
[2024-06-16] MEDS: LORazepam 0.5 MG TABLET PO (23:45)
[2024-06-16] MEDS: QUEtiapine Fumarate 25 MG TABLET PO (23:45)
[2024-06-17 07:00] VITALS: BMI 25.2
[2024-06-17 08:00] VITALS: BP 128/72; PULSE 88; RESP 18; TEMP 36.5; O2SAT 98
--- NOTE | 2024-06-17 10:59 | P.PNPSI_ITS ---
Subjective Subjective Date of Service: 06/17/24 Reason For Visit: combative behaviors Subjective Notes: Conditional Voluntary (signed by HCP) Healthcare Proxy: Yes Interim History: Pt slept a little bit better. No need for IM or prn medication for combative behaviors. He slept most of the morning. He was up for lunch and visit with , but appeared somewhat somnolent still. Mumbles at times, some times may say few sentences or words that are clear but no context as to what he is referring to. No BM, will re-check KUB. US of scrotum shows hydrocele, will consult urology as to intervention or tx. Diagnostics Vital Signs (24Hr): Vital Signs - 24 hr 06/16/24 11:04 06/16/24 11:05 06/16/24 19:36 Temperature 97.8 F Pulse Rate 82 Respiratory Rate 18 Blood Pressure 135/80 135/80 130/74 Pulse Oximetry 97 Oxygen Delivery Method Room Air 06/17/24 08:00 Temperature 97.7 F Pulse Rate 88 Respiratory Rate 18 Blood Pressure 128/72 Pulse Oximetry 98 Oxygen Delivery Method Room Air BMI result Body Mass Index 24.6 Labs 06/10/24 23:25 06/17/24 13:55 Imaging Radiology Impressions: ITS Impressions KUB X-Ray 06/10/24 22:44 IMPRESSION: Nonobstructive bowel gas pattern. Scattered retained stool. Electronically signed by: Sam Jimenez MD 06/11/2024 01:57 AM EDT RP Head CT 06/11/24 15:34 IMPRESSION: No acute intracranial pathology. Electronically signed by: Vasquez Ortega DO 06/11/2024 04:55 PM EDT RP Scrotum Ultrasound 06/14/24 15:23 IMPRESSION: Moderate left hydrocele demonstrating low level internal echoes, probably chronic. Additional findings, as above. Electronically signed by: Troy Willett MD 06/14/2024 04:29 PM EDT RP Scrotum Ultrasound 06/14/24 15:23 IMPRESSION: Moderate left hydrocele demonstrating low level internal echoes, probably chronic. Additional findings, as above. Electronically signed by: Troy Willett MD 06/14/2024 04:29 PM EDT RP Medications Medications Current Medications Acetaminophen (Acetaminophen 325 Mg Tablet) 650 mg PO Q6H PRN PRN Reason: Headache/Pain Mild Scale (1-3) Al Hydroxide/Mg Hydroxide (Magnesium Hydrox/Alum Hydrox 30 Ml Oral.Susp) 30 ml PO Q6H PRN PRN Reason: Heartburn/Nausea Amlodipine Besylate (Amlodipine Besylate 2.5 Mg Tablet) 2.5 mg PO DAILY [facility]; Protocol Last Admin: 06/16/24 11:05 Dose: 2.5 mg Atorvastatin Calcium (Atorvastatin Calcium 80 Mg Tablet) 80 mg PO DAILY [facility] Last Admin: 06/16/24 11:05 Dose: 80 mg Benztropine Mesylate (Benztropine Mesylate 1 Mg Tablet) 1 mg PO BID PRN PRN Reason: EPS Escitalopram Oxalate (Escitalopram Oxalate 20 Mg Tablet) 20 mg PO DAILY [facility] Last Admin: 06/16/24 11:05 Dose: 20 mg Haloperidol (Haloperidol 1 Mg Tablet) 2 mg PO BID@1500,2100 [facility] Last Admin: 06/16/24 22:53 Dose: Not Given Haloperidol (Haloperidol 1 Mg Tablet) 2 mg PO Q6H PRN PRN Reason: agitation Last Admin: 06/16/24 23:45 Dose: 2 mg Lorazepam (Lorazepam 0.5 Mg Tablet) 0.5 mg PO Q4H PRN PRN Reason: anxiety/restlessness Last Admin: 06/16/24 23:45 Dose: 0.5 mg Losartan Potassium (Losartan Potassium 25 Mg Tablet) 25 mg PO DAILY [facility]; Protocol Last Admin: 06/16/24 11:04 Dose: 25 mg Magnesium Hydroxide (Milk Of Magnesia 30 Ml Oral.Susp) 30 ml PO DAILY PRN PRN Reason: Constipation Oxcarbazepine (Oxcarbazepine 300 Mg Tablet) 300 mg PO BID [facility] Last Admin: 06/16/24 22:53 Dose: Not Given Quetiapine Fumarate (Quetiapine Fumarate 25 Mg Tablet) 25 mg PO Q6H PRN PRN Reason: Agitation Last Admin: 06/16/24 23:45 Dose: 25 mg Rivaroxaban (Rivaroxaban 20 Mg Tablet) 20 mg PO DAILY@1700 [facility] Last Admin: 06/16/24 17:24 Dose: 20 mg Trazodone HCl (Trazodone Hcl 50 Mg Tablet) 50 mg PO BEDTIME MRX1 PRN PRN Reason: Insomnia Last Admin: 06/16/24 23:45 Dose: 50 mg Trazodone HCl (Trazodone Hcl 100 Mg Tablet) 100 mg PO BEDTIME [facility] Last Admin: 06/16/24 22:54 Dose: Not Given Allergies Allergies Allergy/AdvReac Type Severity Reaction Status Date / Time No Known Allergies Allergy Verified 06/10/24 22:24 [No Known Allergies*] Assessment & Plan Assessment & Plan (1) Frontotemporal dementia with behavioral disturbance: Status: Acute Code(s): G31.09 - Other frontotemporal neurocognitive disorder; F02.818 - Dementia in other diseases classified elsewhere, unspecified severity, with other behavioral disturbance Plan Mr. Mendez is a 59 year-old male with early onset frontotemporal dementia, now advanced with severe cognitive and memory impairements. Language is marked with severe expressive and receptive aphasia. Pt has HCP which has been invoked. WIll coordination with to sign CV as HCP. He was started on mood stabilizer trileptal over the weekend. PLAN 06/16 will increase trileptal to 300mg po BID. add low dose haldol as seems to be more helpful. no cogwheel on exam. 06/17 continue tx. ordered KUB r/o constipation. Reason for continued inpatient stay Substantial Risk for: inability to function Time Spent With Patient Time: Total time managing care of this patient today ____ minutes.
[2024-06-17] MEDS: amLODIPine Besylate 2.5 MG TABLET PO (11:45)
[2024-06-17] MEDS: OXcarbazepine 300 MG TABLET PO ×2 (11:46→20:06)
[2024-06-17] MEDS: Losartan Potassium 25 MG TABLET PO (11:46)
[2024-06-17] MEDS: Atorvastatin Calcium 80 MG TABLET PO (11:46)
[2024-06-17] MEDS: Escitalopram Oxalate 20 MG TABLET PO (11:46)
[2024-06-17 11:52] VITALS: BP 105/76
[2024-06-17] MEDS: polyethylene glycoL 3350 17 GM POWD.PACK PO (12:57)
--- NOTE | 2024-06-17 12:57 | MHC.SL.SWA ---
Speech Pathologist Impression: Risk of Aspiration Due to: None Dysphasia Diet Status: Recommend continue on current diet of Ground/Mechanical (NDD2) with Thin Liquids, pills crushed in puree. Liquid Consistency and Strategies for Safe Swallow: Liquid Intake Recommendation: Thin Liquid Intake Strategies: Small Sips Solid Food Consistency: Dietary Recommendations: Grnd/Mech Altered (NDD2) Additional Modifications to Solid Foods: Oral Medication Intake: Crushed with Puree Please contact the pharmacy regarding appropriate crushable or liquid drug formulations that are available whenever modified delivery is recommended. Compensatory Strategies and Precautions to be Taken for Safe Swallow: Liquids from Cup Liquids from Straw Small Bites and Sips Alternate Liquids/Solids Rate of Ingestion Change Supervision While Eating and Drinking for Safe Swallow: Total Assistance (1:1) Foods to Avoid: Swallowing Recommended Treatments: Compens. Strategy Educat. Recommendation for Speech: Inpatient Speech Therapy Comment: Patient seen at lunch, where was feeding patient meal in room separate from other patients. At meal, in addition to , CR[employer] SUPERVISOR was present, RN was present (taking vitals and administering meds while speaking to ) followed by CM who was attempting to to get HCP documentation (busy, many distractions). continued to feed patient very attentively throughout, with patient demonstrating slow oral phase, with some tongue pumping, followed by timely swallow. was noted to be blending ground textures into mashed/pureed foods on tray, as well as alternating bites of food with sips of liquid by straw. Patient eating slowly but tolerating well. noted that patient was much improved with his intake with change in dietary texture. Recommend continue on current diet of Ground/Mechanical (NDD2) with Thin Liquids, pills crushed in puree. CT TECH will continue to follow. Frequency/Duration: Daily M-F Date Range for Service Req: Timeline to reassess: Mushroom Spawn Maker Clinican/Clinical Fellow: No Supervisory Statement: I have reviewed and agree with the student/clinical fellow's documentation: N/A Speech Language Pathologist: Maria Esther Griffin M.A., [facility]CH
[2024-06-17] MEDS: HaloperidoL 1 MG TABLET 2 MG PO ×2 (14:11→20:06)
[2024-06-17 14:18] LABS: Alanine Aminotransferase 28 U/L (0-40); Albumin Level 4.1 g/dL (3.5-5.0); Alkaline Phosphatase 92 U/L (39-117); Anion Gap 12 (12-20); Aspartate Amino Transferase 35 U/L (5-37); Bilirubin Total 0.8 mg/dL (0.0-1.0); Blood Urea Nitrogen 20 mg/dL (9-16); Calcium 9.6 mg/dL (8.4-10.2); Carbon Dioxide 28 mmol/L (22-29); Chloride 104 mmol/L (96-108); Creatinine Clr Calc Pharmacy 84.3; Estimated Glomerular Filt Rate > 60; Glucose Random 116 mg/dL (60-115); Iron 152 mcg/dL (45-160); Percent Iron Saturation 57 % (15-50); Potassium 4.2 mmol/L (3.3-5.1); Sodium 140 mmol/L (135-145); Total Iron Binding Capacity 268 mcg/dL (228-428); Total Protein 6.9 g/dL (6.5-8.0); Unsaturated Iron Binding 116 ug/dL
[2024-06-17] MEDS: Rivaroxaban 20 MG TABLET PO (17:46)
[2024-06-17 20:00] VITALS: BP 94/56; PULSE 88; RESP 18; TEMP 36.8; O2SAT 95
[2024-06-17] MEDS: traZODone HCL 100 MG TABLET PO (20:06)
[2024-06-17] MEDS: QUEtiapine Fumarate 25 MG TABLET PO (21:04)
[2024-06-17] MEDS: traZODone HCL 50 MG TABLET PO (22:12)
[2024-06-18] MEDS: traZODone HCL 50 MG TABLET PO (00:48)
[2024-06-18] MEDS: HaloperidoL 1 MG TABLET 2 MG PO ×3 (00:48→20:33)
[2024-06-18 08:00] VITALS: BP 146/87; PULSE 86; RESP 18; TEMP 36.4; O2SAT 99
[2024-06-18 10:11] VITALS: BP 146/87
[2024-06-18] MEDS: polyethylene glycoL 3350 17 GM POWD.PACK PO (10:11)
[2024-06-18] MEDS: OXcarbazepine 300 MG TABLET PO ×2 (10:11→20:33)
[2024-06-18] MEDS: Atorvastatin Calcium 80 MG TABLET PO (10:11)
[2024-06-18] MEDS: Losartan Potassium 25 MG TABLET PO (10:11)
[2024-06-18 10:12] VITALS: BP 146/87
[2024-06-18] MEDS: Escitalopram Oxalate 20 MG TABLET PO (10:12)
[2024-06-18] MEDS: amLODIPine Besylate 2.5 MG TABLET PO (10:12)
--- NOTE | 2024-06-18 14:43 | P.PNPSI_ITS ---
Subjective Subjective Date of Service: 06/18/24 Reason For Visit: combative behaviors Subjective Notes: Conditional Voluntary Healthcare Proxy: Yes Interim History: Pt about 4 hrs. pacing, and restless at night. Today, presents as less somnolent, less grabbing things that are not there. Speech unintelligible, he is walking aimlessly. Does appear less disorganized, in that he is not reaching for things that are not there. Review of Systems Review of Systems ROS unable to be obtained due to altered mental status Mental Status Exam Mental Status Exam Narrative: Appearance: wearing hospital gown, brief eye contact, poor attention Behavior: not engaging in much conversation Psychomotor: some restlessness Speech: severe receptive and expressive aphasia Mood: unable to assess Affect: somewhat restless SI: unable to assess HI: unable to assess but not signs of it Insight/judgment: impaired x 2. memory/cog: alert, due to severe aphasia unable to assess orientation. severe impairments, not able to follow directions. Diagnostics Vital Signs (24Hr): Vital Signs - 24 hr 06/17/24 20:00 06/18/24 08:00 06/18/24 10:11 Temperature 98.2 F 97.5 F Pulse Rate 88 86 Respiratory Rate 18 18 Blood Pressure 94/56 L 146/87 H 146/87 H Pulse Oximetry 95 99 Oxygen Delivery Method Room Air Room Air 06/18/24 10:12 Temperature Pulse Rate Respiratory Rate Blood Pressure 146/87 H Pulse Oximetry Oxygen Delivery Method BMI result Body Mass Index 25.2 Labs 06/10/24 23:25 06/17/24 13:55 Labs: Laboratory Results - last 48 hr 06/17/24 13:55 Sodium 140 Potassium 4.2 Chloride 104 Carbon Dioxide 28 Anion Gap 12 BUN 20 H Creatinine 0.98 Estim Creat Clear Calc 84.3 Estimated GFR > 60 Random Glucose 116 H Calcium 9.6 Iron 152 TIBC 268 % Saturation 57 H Unsat Iron Binding 116 Total Bilirubin 0.8 AST 35 ALT 28 Alkaline Phosphatase 92 Total Protein 6.9 Albumin 4.1 Imaging Radiology Impressions: ITS Impressions KUB X-Ray 06/10/24 22:44 IMPRESSION: Nonobstructive bowel gas pattern. Scattered retained stool. Electronically signed by: Sam Jimenez MD 06/11/2024 01:[address] 06/11/24 15:34 IMPRESSION: No acute intracranial pathology. Electronically signed by: Vasquez Ortega DO 06/11/2024 04:55 PM EDT RP Scrotum Ultrasound 06/14/24 15:23 IMPRESSION: Moderate left hydrocele demonstrating low level internal echoes, probably chronic. Additional findings, as above. Electronically signed by: Troy Willett MD 06/14/2024 04:29 PM EDT RP Scrotum Ultrasound 06/14/24 15:23 IMPRESSION: Moderate left hydrocele demonstrating low level internal echoes, probably chronic. Additional findings, as above. Electronically signed by: Troy Willett MD 06/14/2024 04:29 PM EDT RP KUB X-Ray 06/17/24 12:40 IMPRESSION: Nonobstructive bowel gas pattern. Mild to moderate amount of radiodense stool in the rectum. Electronically signed by: Lorrie Pacheco MD 06/17/2024 03:19 PM EDT RP Medications Medications Current Medications Acetaminophen (Acetaminophen 325 Mg Tablet) 650 mg PO Q6H PRN PRN Reason: Headache/Pain Mild Scale (1-3) Al Hydroxide/Mg Hydroxide (Magnesium Hydrox/Alum Hydrox 30 Ml Oral.Susp) 30 ml PO Q6H PRN PRN Reason: Heartburn/Nausea Amlodipine Besylate (Amlodipine Besylate 2.5 Mg Tablet) 2.5 mg PO DAILY [facility]; Protocol Last Admin: 06/18/24 10:12 Dose: 2.5 mg Atorvastatin Calcium (Atorvastatin Calcium 80 Mg Tablet) 80 mg PO DAILY [facility] Last Admin: 06/18/24 10:11 Dose: 80 mg Benztropine Mesylate (Benztropine Mesylate 1 Mg Tablet) 1 mg PO BID PRN PRN Reason: EPS Escitalopram Oxalate (Escitalopram Oxalate 20 Mg Tablet) 20 mg PO DAILY [facility] Last Admin: 06/18/24 10:12 Dose: 20 mg Haloperidol (Haloperidol 1 Mg Tablet) 2 mg PO BID@1500,2100 [facility] Last Admin: 06/17/24 20:06 Dose: 2 mg Haloperidol (Haloperidol 1 Mg Tablet) 2 mg PO Q6H PRN PRN Reason: agitation Last Admin: 06/18/24 00:48 Dose: 2 mg Losartan Potassium (Losartan Potassium 25 Mg Tablet) 25 mg PO DAILY [facility]; Protocol Last Admin: 06/18/24 10:11 Dose: 25 mg Magnesium Hydroxide (Milk Of Magnesia 30 Ml Oral.Susp) 30 ml PO DAILY PRN PRN Reason: Constipation Oxcarbazepine (Oxcarbazepine 300 Mg Tablet) 300 mg PO BID [facility] Last Admin: 06/18/24 10:11 Dose: 300 mg Polyethylene Glycol (Polyethylene Glycol 3350 17 Gm Powd.Pack) 17 gm PO DAILY [facility] Last Admin: 06/18/24 10:11 Dose: 17 gm Quetiapine Fumarate (Quetiapine Fumarate 25 Mg Tablet) 25 mg PO Q6H PRN PRN Reason: Agitation Last Admin: 06/17/24 21:04 Dose: 25 mg Rivaroxaban (Rivaroxaban 20 Mg Tablet) 20 mg PO DAILY@1700 [facility] Last Admin: 06/17/24 17:46 Dose: 20 mg Trazodone HCl (Trazodone Hcl 50 Mg Tablet) 50 mg PO BEDTIME MRX1 PRN PRN Reason: Insomnia Last Admin: 06/18/24 00:48 Dose: 50 mg Trazodone HCl (Trazodone Hcl 100 Mg Tablet) 100 mg PO BEDTIME [facility] Last Admin: 06/17/24 20:06 Dose: 100 mg Allergies Allergies Allergy/AdvReac Type Severity Reaction Status Date / Time No Known Allergies Allergy Verified 06/10/24 22:24 [No Known Allergies*] Assessment & Plan Assessment & Plan (1) Frontotemporal dementia with behavioral disturbance: Status: Acute Code(s): G31.09 - Other frontotemporal neurocognitive disorder; F02.818 - Dementia in other diseases classified elsewhere, unspecified severity, with other behavioral disturbance Plan Mr. Mendez is a 59 year-old male with early onset frontotemporal dementia, now advanced with severe cognitive and memory impairements. Language is marked with severe expressive and receptive aphasia. Pt has HCP which has been invoked. WIll coordination with to sign CV as HCP. He was started on mood stabilizer trileptal over the weekend. PLAN 06/16 will increase trileptal to 300mg po BID. add low dose haldol as seems to be more helpful. no cogwheel on exam. 06/17 continue tx. ordered KUB r/o constipation. 06/18 KUB with moderate constipation, no obstruction. Reason for continued inpatient stay Substantial Risk for: inability to function Time Spent With Patient Time: Total time managing care of this patient today ____ minutes.
[2024-06-18] MEDS: Rivaroxaban 20 MG TABLET PO (17:34)
[2024-06-18 20:00] VITALS: BP 138/88; PULSE 84; RESP 18; TEMP 36.6; O2SAT 97
[2024-06-18] MEDS: Melatonin 3 MG TABLET 6 MG PO (20:33)
[2024-06-18] MEDS: traZODone HCL 100 MG TABLET PO (20:33)
[2024-06-19 08:00] VITALS: BP 107/69; PULSE 89; RESP 18; TEMP 36.1; O2SAT 97
[2024-06-19 09:06] VITALS: BP 107/69
[2024-06-19] MEDS: Losartan Potassium 25 MG TABLET PO (09:06)
[2024-06-19] MEDS: polyethylene glycoL 3350 17 GM POWD.PACK PO (09:06)
[2024-06-19 09:07] VITALS: BP 107/69
[2024-06-19] MEDS: amLODIPine Besylate 2.5 MG TABLET PO (09:07)
[2024-06-19] MEDS: Escitalopram Oxalate 20 MG TABLET PO (09:07)
[2024-06-19] MEDS: Atorvastatin Calcium 80 MG TABLET PO (09:07)
[2024-06-19] MEDS: OXcarbazepine 300 MG TABLET PO ×2 (09:07→21:44)
--- NOTE | 2024-06-19 14:05 | HO.PSYCHPN ---
Subjective Subjective Date of Service: 06/19/24 Reason For Visit: combative behaviors Subjective Notes: Conditional Voluntary (by hcp) Healthcare Proxy: Yes Guardianship: No Medical Problems Affecting Mental Status: Yes (hx FTD) Interim History: No Agitation since day of admission,walking ne[address] ways , doesn't eat breakfast but comes and he eats lunch /dinner daily -took pm meds but at 3am wouldn't open mouth - on crushed food diet- not pureed but chopped mechanical - Review of Systems Medical Review of Systems: unchanged Mental Status Exam Mental Status Exam Patient Appearance: Appropriate Patient Orientation: Person (? doesn't respond much to name) Level of Consciousness: Awake Patient Behavior: Passive and Poor Eye Contact Mood Description: Apathetic Affect Description: Flat Patient Cognition Impaired: Yes Ability to Follow Directions: Poor Speech Pattern: Aphasic Abnormal Motor Activity Signs and Symptoms: Restlessness Judgement: Poor Diagnostics Vital Signs (24Hr): Vital Signs - 24 hr 06/18/24 20:00 06/19/24 08:00 06/19/24 09:06 Temperature 97.8 F 97.0 F Pulse Rate 84 89 Respiratory Rate 18 18 Blood Pressure 138/88 107/69 107/69 Pulse Oximetry 97 97 Oxygen Delivery Method Room Air Room Air 06/19/24 09:07 Temperature Pulse Rate Respiratory Rate Blood Pressure 107/69 Pulse Oximetry Oxygen Delivery Method BMI result Body Mass Index 25.2 Labs 06/10/24 23:25 06/17/24 13:55 Labs: Laboratory Results - last 48 hr 06/17/24 13:55 Sodium 140 Potassium 4.2 Chloride 104 Carbon Dioxide 28 Anion Gap 12 BUN 20 H Creatinine 0.98 Estim Creat Clear Calc 84.3 Estimated GFR > 60 Random Glucose 116 H Calcium 9.6 Iron 152 TIBC 268 % Saturation 57 H Unsat Iron Binding 116 Total Bilirubin 0.8 AST 35 ALT 28 Alkaline Phosphatase 92 Total Protein 6.9 Albumin 4.1 Imaging Radiology Impressions: ITS Impressions KUB X-Ray 06/10/24 22:44 IMPRESSION: Nonobstructive bowel gas pattern. Scattered retained stool. Electronically signed by: Sam Jimenez MD 06/11/2024 01:57 AM EDT RP Head CT 06/11/24 15:34 IMPRESSION: No acute intracranial pathology. Electronically signed by: Vasquez Ortega DO 06/11/2024 04:55 PM EDT RP Scrotum Ultrasound 06/14/24 15:23 IMPRESSION: Moderate left hydrocele demonstrating low level internal echoes, probably chronic. Additional findings, as above. Electronically signed by: Troy Willett MD 06/14/2024 04:29 PM EDT RP Scrotum Ultrasound 06/14/24 15:23 IMPRESSION: Moderate left hydrocele demonstrating low level internal echoes, probably chronic. Additional findings, as above. Electronically signed by: Troy Willett MD 06/14/2024 04:29 PM EDT RP KUB X-Ray 06/17/24 12:40 IMPRESSION: Nonobstructive bowel gas pattern. Mild to moderate amount of radiodense stool in the rectum. Electronically signed by: Lorrie Pacheco MD 06/17/2024 03:19 PM EDT RP Medications Medications Current Medications Acetaminophen (Acetaminophen 325 Mg Tablet) 650 mg PO Q6H PRN PRN Reason: Headache/Pain Mild Scale (1-3) Al Hydroxide/Mg Hydroxide (Magnesium Hydrox/Alum Hydrox 30 Ml Oral.Susp) 30 ml PO Q6H PRN PRN Reason: Heartburn/Nausea Amlodipine Besylate (Amlodipine Besylate 2.5 Mg Tablet) 2.5 mg PO DAILY [facility]; Protocol Last Admin: 06/19/24 09:07 Dose: 2.5 mg Atorvastatin Calcium (Atorvastatin Calcium 80 Mg Tablet) 80 mg PO DAILY [facility] Last Admin: 06/19/24 09:07 Dose: 80 mg Benztropine Mesylate (Benztropine Mesylate 1 Mg Tablet) 1 mg PO BID PRN PRN Reason: EPS Escitalopram Oxalate (Escitalopram Oxalate 20 Mg Tablet) 20 mg PO DAILY [facility] Last Admin: 06/19/24 09:07 Dose: 20 mg Haloperidol (Haloperidol 1 Mg Tablet) 2 mg PO BID@1500,2100 [facility] Last Admin: 06/18/24 20:33 Dose: 2 mg Haloperidol (Haloperidol 1 Mg Tablet) 2 mg PO Q6H PRN PRN Reason: agitation Last Admin: 06/18/24 00:48 Dose: 2 mg Losartan Potassium (Losartan Potassium 25 Mg Tablet) 25 mg PO DAILY [facility]; Protocol Last Admin: 06/19/24 09:06 Dose: 25 mg Magnesium Hydroxide (Milk Of Magnesia 30 Ml Oral.Susp) 30 ml PO DAILY PRN PRN Reason: Constipation Melatonin (Melatonin 3 Mg Tablet) 6 mg PO BEDTIME [facility] Last Admin: 06/18/24 20:33 Dose: 6 mg Oxcarbazepine (Oxcarbazepine 300 Mg Tablet) 300 mg PO BID [facility] Last Admin: 06/19/24 09:07 Dose: 300 mg Polyethylene Glycol (Polyethylene Glycol 3350 17 Gm Powd.Pack) 17 gm PO DAILY [facility] Last Admin: 06/19/24 09:06 Dose: 17 gm Rivaroxaban (Rivaroxaban 20 Mg Tablet) 20 mg PO DAILY@1700 [facility] Last Admin: 06/18/24 17:34 Dose: 20 mg Trazodone HCl (Trazodone Hcl 50 Mg Tablet) 50 mg PO BEDTIME MRX1 PRN PRN Reason: Insomnia Last Admin: 06/18/24 00:48 Dose: 50 mg Trazodone HCl (Trazodone Hcl 100 Mg Tablet) 100 mg PO BEDTIME [facility] Last Admin: 06/18/24 20:33 Dose: 100 mg Allergies Allergies Allergy/AdvReac Type Severity Reaction Status Date / Time No Known Allergies Allergy Verified 06/10/24 22:24 [No Known Allergies*] Assessment & Plan Assessment & Plan (1) Frontotemporal dementia with behavioral disturbance: Status: Acute Code(s): G31.09 - Other frontotemporal neurocognitive disorder; F02.818 - Dementia in other diseases classified elsewhere, unspecified severity, with other behavioral disturbance Plan inpt level of care for safety containment and stabilization. 06/19- change meds to liquid see if more able to be consistent- my guess is that intermittent spitting out meds maybe why he struggled partly on transition to [facility]. Reason for continued inpatient stay Substantial Risk for: inability to function and med/psych decompensation Time Spent With Patient Time: Total time managing care of this patient today ____ minutes.
[2024-06-19] MEDS: HaloperidoL 1 MG TABLET 2 MG PO (15:03)
[2024-06-19] MEDS: Haloperidol Lactate Oral Conc 10 MG/5 ML ORAL.CONC PO (16:56)
[2024-06-19] MEDS: Rivaroxaban 20 MG TABLET PO (17:17)
--- NOTE | 2024-06-19 20:20 | PM.EVENT ---
Event Note Date of Service: 06/19/24 Event Note: pt becoming increasingly agitated; unable to be redirected. Started swinging at and trying to hit staff and required chemical restraint and physical hold. Ordered Haldo 5mg and Ativan 2mg. Time Spent With Patient Time: Total time managing care of this patient today ____ minutes.
[2024-06-19 20:55] VITALS: BP 104/66; PULSE 94; RESP 18; TEMP 36.7; O2SAT 98
[2024-06-19] MEDS: LORazepam 2 MG/ML VIAL IM (20:55)
[2024-06-19] MEDS: Haloperidol Decanoate 50 MG/ML VIAL IM (20:55)
[2024-06-19] MEDS: traZODone HCL 100 MG TABLET PO (21:44)
[2024-06-19] MEDS: Melatonin 3 MG TABLET 6 MG PO (21:45)
[2024-06-19] MEDS: diphenhydrAMINE HCl 12.5 MG/5 ML LIQUID PO (21:46)
[2024-06-19] MEDS: Haloperidol Lactate Oral Conc 10 MG/5 ML ORAL.CONC 2 MG PO (21:46)
--- NOTE | 2024-06-19 23:19 | PC.NURSE ---
At approximately 1999, patient observer and MHC's notified this functional tester typewriters that patient becoming increasingly restless and agitated. Patient observed becoming intrusive to peers, attempting to grab peers and speaking loudly to them. This RN attempted to adminsiter scheduled HS medications in which patient spit out and threw. Attempted to call patient's in hopes of deescalating patient so he would be able to accept medications...no effect. Patient also offered snacks, toileting, and sensory distractions with no effect. Patient continued to pace the unit, swearing, attempting to grab and strike staff with closed fist. Provider phone representative (EL) notified and Haldol 5mg, Ativan 2mg IM ordered and administered (at 2053) with the assistance of security and fellow RN's. Hospitalist notified and came to bedside to examine patient. Patient continued to exhibit aggressive behaviors, attempting to grab and kick staff. Provider notified again at 2139 that patient was still agitated and IM medication only had some effect. Scheduled bedtime medications administered per EL. Patient able to calm down and fall to sleep around 2209. Patient's Daniela called and updated, hotel houseman and HRO notified.
[2024-06-20 08:00] VITALS: BP 107/65; PULSE 71; RESP 18; TEMP 36.1; O2SAT 97
[2024-06-20 10:47] VITALS: BP 107/65
[2024-06-20 10:48] VITALS: BP 107/65
--- NOTE | 2024-06-20 13:15 | HO.PSYCHPN ---
Subjective Subjective Date of Service: 06/20/24 Reason For Visit: combative behaviors Subjective Notes: Conditional Voluntary (HCP) Healthcare Proxy: Yes Guardianship: No Medical Problems Affecting Mental Status: Yes (FrontoTemporalDementia) Interim History: 59 yo MWM who had episode of aggression last pm which required chemical restraint - he slept till this am - and missed lunch- would like provider to call her- which nursing and I decided could wait till tomorrow- 06/21 On review of medication hehas been tried on seroquel and abilify most recently before current haldol- [email or web address] will give trial to olanzapine zydis- Medication Compliance: Intermittent (change to haldol liquid but pt became more agitated last pm) Side effects from medications: No (?) Attending Groups: No Review of Systems Acute medical concerns: Yes FTD Review of Systems: didn't eat lunch today - but was taking food from staff this afternoon after lunch- Mental Status Exam Mental Status Exam Patient Appearance: Well Grooomed and Appropriate Level of Consciousness: Awake and Alert Patient Behavior: Aggressive, Impulsive and Poor Eye Contact Affect Description: Labile Patient Cognition Impaired: Yes Ability to Follow Directions: Poor Speech Pattern: Aphasic Depressive Symptoms: Difficulty Sleeping Abnormal Motor Activity Signs and Symptoms: Restlessness Judgement: Poor Diagnostics Vital Signs (24Hr): Vital Signs - 24 hr 06/19/24 20:55 06/20/24 08:00 06/20/24 10:47 Temperature 98.0 F 96.9 F Pulse Rate 94 71 Respiratory Rate 18 18 Blood Pressure 104/66 107/65 107/65 Pulse Oximetry 98 97 Oxygen Delivery Method Room Air Room Air 06/20/24 10:48 Temperature Pulse Rate Respiratory Rate Blood Pressure 107/65 Pulse Oximetry Oxygen Delivery Method BMI result Body Mass Index 25.2 Labs 06/10/24 23:25 06/17/24 13:55 Imaging Radiology Impressions: ITS Impressions KUB X-Ray 06/10/24 22:44 IMPRESSION: Nonobstructive bowel gas pattern. Scattered retained stool. Electronically signed by: Sam Jimenez MD 06/11/2024 01:57 AM EDT RP Head CT 06/11/24 15:34 IMPRESSION: No acute intracranial pathology. Electronically signed by: Vasquez Ortega DO 06/11/2024 04:55 PM EDT RP Scrotum Ultrasound 06/14/24 15:23 IMPRESSION: Moderate left hydrocele demonstrating low level internal echoes, probably chronic. Additional findings, as above. Electronically signed by: Troy Willett MD 06/14/2024 04:29 PM EDT RP Scrotum Ultrasound 06/14/24 15:23 IMPRESSION: Moderate left hydrocele demonstrating low level internal echoes, probably chronic. Additional findings, as above. Electronically signed by: Troy Willett MD 06/14/2024 04:29 PM EDT RP KUB X-Ray 06/17/24 12:40 IMPRESSION: Nonobstructive bowel gas pattern. Mild to moderate amount of radiodense stool in the rectum. Electronically signed by: Lorrie Pacheco MD 06/17/2024 03:19 PM EDT RP Medications Medications Current Medications Acetaminophen (Acetaminophen 325 Mg Tablet) 650 mg PO Q6H PRN PRN Reason: Headache/Pain Mild Scale (1-3) Al Hydroxide/Mg Hydroxide (Magnesium Hydrox/Alum Hydrox 30 Ml Oral.Susp) 30 ml PO Q6H PRN PRN Reason: Heartburn/Nausea Amlodipine Besylate (Amlodipine Besylate 2.5 Mg Tablet) 2.5 mg PO DAILY [facility]; Protocol Last Admin: 06/20/24 10:47 Dose: Not Given Atorvastatin Calcium (Atorvastatin Calcium 80 Mg Tablet) 80 mg PO DAILY [facility] Last Admin: 06/20/24 10:48 Dose: Not Given Benztropine Mesylate (Benztropine Mesylate 1 Mg Tablet) 1 mg PO BID PRN PRN Reason: EPS Diphenhydramine HCl (Diphenhydramine Hcl 12.5 Mg/5 Ml Liquid) 12.5 mg PO Q6H PRN PRN Reason: Restlessness Last Admin: 06/19/24 21:46 Dose: 12.5 mg Escitalopram Oxalate (Escitalopram Oxalate 20 Mg Tablet) 20 mg PO DAILY [facility] Last Admin: 06/20/24 10:48 Dose: Not Given Haloperidol (Haloperidol 1 Mg Tablet) 2 mg PO Q6H PRN PRN Reason: agitation Last Admin: 06/18/24 00:48 Dose: 2 mg Haloperidol Lactate (Haloperidol Lactate Oral Conc 10 Mg/5 Ml Oral.Conc) 2 mg PO BID@1500,2100 [facility] Last Admin: 06/19/24 21:46 Dose: 2 mg Losartan Potassium (Losartan Potassium 25 Mg Tablet) 25 mg PO DAILY [facility]; Protocol Last Admin: 06/20/24 10:48 Dose: Not Given Magnesium Hydroxide (Milk Of Magnesia 30 Ml Oral.Susp) 30 ml PO DAILY PRN PRN Reason: Constipation Melatonin (Melatonin 3 Mg Tablet) 6 mg PO BEDTIME [facility] Last Admin: 06/19/24 21:45 Dose: 6 mg Oxcarbazepine (Oxcarbazepine 300 Mg Tablet) 300 mg PO BID [facility] Last Admin: 06/20/24 10:49 Dose: Not Given Polyethylene Glycol (Polyethylene Glycol 3350 17 Gm Powd.Pack) 17 gm PO DAILY [facility] Last Admin: 06/20/24 10:49 Dose: Not Given Rivaroxaban (Rivaroxaban 20 Mg Tablet) 20 mg PO DAILY@1700 [facility] Last Admin: 06/19/24 17:17 Dose: 20 mg Trazodone HCl (Trazodone Hcl 50 Mg Tablet) 50 mg PO BEDTIME MRX1 PRN PRN Reason: Insomnia Last Admin: 06/18/24 00:48 Dose: 50 mg Trazodone HCl (Trazodone Hcl 100 Mg Tablet) 100 mg PO BEDTIME [facility] Last Admin: 06/19/24 21:44 Dose: 100 mg Allergies Allergies Allergy/AdvReac Type Severity Reaction Status Date / Time No Known Allergies Allergy Verified 06/10/24 22:24 [No Known Allergies*] Assessment & Plan Assessment & Plan (1) Frontotemporal dementia with behavioral disturbance: Status: Acute Code(s): G31.09 - Other frontotemporal neurocognitive disorder; F02.818 - Dementia in other diseases classified elsewhere, unspecified severity, with other behavioral disturbance Plan inpt level of care for safety containment and stabilization. 06/19- change meds to liquid see if more able to be consistent- my guess is that intermittent spitting out meds maybe why he struggled partly on transition to [facility]. 06/20- change haldol to olanzapine zydis- for a day to see if that is more helpful - Reason for continued inpatient stay Substantial Risk for: rapid decompensation and med/psych decompensation Time Spent With Patient Time: Total time managing care of this patient today ____ minutes.
[2024-06-20] MEDS: OLANZapine ODT 10 MG TAB.RAPDIS 5 MG TRANSLINGU ×2 (13:35→20:13)
[2024-06-20] MEDS: Rivaroxaban 20 MG TABLET PO (17:29)
[2024-06-20 19:53] VITALS: BP 112/68; PULSE 78; RESP 18; TEMP 36.6; O2SAT 97
[2024-06-20] MEDS: OXcarbazepine 300 MG TABLET PO (20:13)
[2024-06-20] MEDS: diphenhydrAMINE HCl 12.5 MG/5 ML LIQUID PO (20:13)
[2024-06-20] MEDS: traZODone HCL 100 MG TABLET PO (20:13)
[2024-06-20] MEDS: Melatonin 3 MG TABLET 6 MG PO (20:13)
[2024-06-20] MEDS: traZODone HCL 50 MG TABLET PO (23:06)
[2024-06-21] MEDS: OLANZapine ODT 10 MG TAB.RAPDIS 5 MG TRANSLINGU ×2 (00:53→07:46)
[2024-06-21] MEDS: diphenhydrAMINE HCl 12.5 MG/5 ML LIQUID PO (04:27)
[2024-06-21 07:48] VITALS: BP 116/77
[2024-06-21] MEDS: Losartan Potassium 25 MG TABLET PO (07:48)
[2024-06-21] MEDS: Escitalopram Oxalate 20 MG TABLET PO (07:48)
[2024-06-21] MEDS: Atorvastatin Calcium 80 MG TABLET PO (07:50)
[2024-06-21] MEDS: OXcarbazepine 300 MG TABLET PO ×2 (07:50→19:49)
[2024-06-21 07:51] VITALS: BP 116/77
[2024-06-21] MEDS: amLODIPine Besylate 2.5 MG TABLET PO (07:51)
[2024-06-21] MEDS: polyethylene glycoL 3350 17 GM POWD.PACK PO (07:54)
[2024-06-21 08:00] VITALS: BP 116/77; PULSE 81; RESP 16; TEMP 36.3; O2SAT 96
--- NOTE | 2024-06-21 09:27 | P.PNPSI_ITS ---
Subjective Subjective Date of Service: 06/21/24 Reason For Visit: combative behaviors Subjective Notes: Conditional Voluntary Healthcare Proxy: Yes Interim History: Pt had some difficulty sleeping through the night. He was switched to olanzapine which he had last week was even lower doses seemed to make him more confused and somnolent. He had some difficulty eating suspect due to sedation of medication. He later presented as much more awake, pacing, severe expressive and receptive aphasia. on a one to one due to wondering. Diagnostics Vital Signs (24Hr): Vital Signs - 24 hr 06/20/24 10:47 06/20/24 10:48 06/20/24 19:53 Temperature 97.8 F Pulse Rate 78 Respiratory Rate 18 Blood Pressure 107/65 107/65 112/68 Pulse Oximetry 97 Oxygen Delivery Method Room Air 06/21/24 07:48 06/21/24 07:51 Temperature Pulse Rate Respiratory Rate Blood Pressure 116/77 116/77 Pulse Oximetry Oxygen Delivery Method BMI result Body Mass Index 25.2 Labs 06/10/24 23:25 06/17/24 13:55 Imaging Radiology Impressions: ITS Impressions KUB X-Ray 06/10/24 22:44 IMPRESSION: Nonobstructive bowel gas pattern. Scattered retained stool. Electronically signed by: Sam Jimenez MD 06/11/2024 01:57 AM EDT RP Head CT 06/11/24 15:34 IMPRESSION: No acute intracranial pathology. Electronically signed by: Vasquez Ortega DO 06/11/2024 04:55 PM EDT RP Scrotum Ultrasound 06/14/24 15:23 IMPRESSION: Moderate left hydrocele demonstrating low level internal echoes, probably chronic. Additional findings, as above. Electronically signed by: Troy Willett MD 06/14/2024 04:29 PM EDT RP Scrotum Ultrasound 06/14/24 15:23 IMPRESSION: Moderate left hydrocele demonstrating low level internal echoes, probably chronic. Additional findings, as above. Electronically signed by: Troy Willett MD 06/14/2024 04:29 PM EDT RP KUB X-Ray 06/17/24 12:40 IMPRESSION: Nonobstructive bowel gas pattern. Mild to moderate amount of radiodense stool in the rectum. Electronically signed by: Lorrie Pacheco MD 06/17/2024 03:19 PM EDT Medications Medications Current Medications Acetaminophen (Acetaminophen 325 Mg Tablet) 650 mg PO Q6H PRN PRN Reason: Headache/Pain Mild Scale (1-3) Al Hydroxide/Mg Hydroxide (Magnesium Hydrox/Alum Hydrox 30 Ml Oral.Susp) 30 ml PO Q6H PRN PRN Reason: Heartburn/Nausea Amlodipine Besylate (Amlodipine Besylate 2.5 Mg Tablet) 2.5 mg PO DAILY [facility]; Protocol Last Admin: 06/21/24 07:51 Dose: 2.5 mg Atorvastatin Calcium (Atorvastatin Calcium 80 Mg Tablet) 80 mg PO DAILY [facility] Last Admin: 06/21/24 07:50 Dose: 80 mg Benztropine Mesylate (Benztropine Mesylate 1 Mg Tablet) 1 mg PO BID PRN PRN Reason: EPS Diphenhydramine HCl (Diphenhydramine Hcl 12.5 Mg/5 Ml Liquid) 12.5 mg PO Q6H PRN PRN Reason: Restlessness Last Admin: 06/21/24 04:27 Dose: 12.5 mg Escitalopram Oxalate (Escitalopram Oxalate 20 Mg Tablet) 20 mg PO DAILY [facility] Last Admin: 06/21/24 07:48 Dose: 20 mg Losartan Potassium (Losartan Potassium 25 Mg Tablet) 25 mg PO DAILY [facility]; Protocol Last Admin: 06/21/24 07:48 Dose: 25 mg Magnesium Hydroxide (Milk Of Magnesia 30 Ml Oral.Susp) 30 ml PO DAILY PRN PRN Reason: Constipation Melatonin (Melatonin 3 Mg Tablet) 6 mg PO BEDTIME [facility] Last Admin: 06/20/24 20:13 Dose: 6 mg Olanzapine (Olanzapine Odt 10 Mg Tab.Rapdis) 5 mg TRANSLINGU BID [facility] Last Admin: 06/21/24 07:46 Dose: 5 mg Oxcarbazepine (Oxcarbazepine 300 Mg Tablet) 300 mg PO BID [facility] Last Admin: 06/21/24 07:50 Dose: 300 mg Polyethylene Glycol (Polyethylene Glycol 3350 17 Gm Powd.Pack) 17 gm PO DAILY [facility] Last Admin: 06/21/24 07:54 Dose: 17 gm Rivaroxaban (Rivaroxaban 20 Mg Tablet) 20 mg PO DAILY@1700 [facility] Last Admin: 06/20/24 17:29 Dose: 20 mg Trazodone HCl (Trazodone Hcl 50 Mg Tablet) 50 mg PO BEDTIME MRX1 PRN PRN Reason: Insomnia Last Admin: 06/20/24 23:06 Dose: 50 mg Trazodone HCl (Trazodone Hcl 100 Mg Tablet) 100 mg PO BEDTIME [facility] Last Admin: 06/20/24 20:13 Dose: 100 mg Allergies Allergies Allergy/AdvReac Type Severity Reaction Status Date / Time No Known Allergies Allergy Verified 06/10/24 22:24 [No Known Allergies*] Assessment & Plan Assessment & Plan (1) Frontotemporal dementia with behavioral disturbance: Status: Acute Code(s): G31.09 - Other frontotemporal neurocognitive disorder; F02.818 - Dementia in other diseases classified elsewhere, unspecified severity, with other behavioral disturbance Plan inpt level of care for safety containment and stabilization. 06/19- change meds to liquid see if more able to be consistent- my guess is that intermittent spitting out meds maybe why he struggled partly on transition to [facility]. 06/20- change haldol to olanzapine zydis- for a day to see if that is more helpful - 06/21 d/c olanzapine, he had this medication last week with more confusion and sedation. Will add propanolol 5mg po TID- some degree of akathisia and restless which could be related to progression of frontotemporal. restart haldol 2mg po BID, prn doses. no EPS on exam. Reason for continued inpatient stay Substantial Risk for: inability to function Time Spent With Patient Time: Total time managing care of this patient today ____ minutes.
--- NOTE | 2024-06-21 14:06 | MHC.SL.SWA ---
Speech Pathologist Impression: Progressive decline in pt awareness, PO intake anticipated to be significantly reduced. Risk of Aspiration Due to: None Dysphasia Diet Status: Recommend continue on current diet of Ground/Mechanical (NDD2) with Thin Liquids, pills crushed in puree. Liquid Consistency and Strategies for Safe Swallow: Liquid Intake Recommendation: Thin Liquid Intake Strategies: Small Sips Solid Food Consistency: Dietary Recommendations: Grnd/Mech Altered (NDD2) Additional Modifications to Solid Foods: Oral Medication Intake: Crushed with Puree Please contact the pharmacy regarding appropriate crushable or liquid drug formulations that are available whenever modified delivery is recommended. Compensatory Strategies and Precautions to be Taken for Safe Swallow: Liquids from Cup Liquids from Straw Small Bites and Sips Alternate Liquids/Solids Rate of Ingestion Change Supervision While Eating and Drinking for Safe Swallow: Total Assistance (1:1) Foods to Avoid: Swallowing Recommended Treatments: Compens. Strategy Educat. Recommendation for Speech: Inpatient Speech Therapy Comment: Pt with advanced dementia, requires total cueing to orient to task of eating, when aware, oropharyngeal coordination WNL. Education ongoing with caregivers, anticipate no further BENCH BORING MACHINE OPERATOR intervention indicated at time of d/c, consider if POC transitions to comfort in the future. Frequency/Duration: Daily M-F Date Range for Service Req: Timeline to reassess: Converter Skimmer Clinican/Clinical Fellow: No Supervisory Statement: I have reviewed and agree with the student/clinical fellow's documentation: N/A Speech Language Pathologist: Keyanna Shah M.S. [facility]-BENCH BORING MACHINE OPERATOR
[2024-06-21] MEDS: OLANZapine ODT 10 MG TAB.RAPDIS TRANSLINGU (15:11)
[2024-06-21 17:03] VITALS: BP 102/77; O2SAT 89
[2024-06-21] MEDS: Propranolol HCL 10 MG TABLET 5 MG PO ×2 (17:06→19:49)
[2024-06-21] MEDS: HaloperidoL 1 MG TABLET 2 MG PO ×2 (18:31→19:49)
--- NOTE | 2024-06-21 18:33 | PC.NURSE ---
Patient medicated with Haldol 2 mg for agitation at 1833.
--- NOTE | 2024-06-21 19:18 | PC.NURSE ---
Attempted to collect urine sample at various times today unsuccessfully. Pt uncooperative and unable to provide a clean catch urine sample. Will continue to monitor and pass along this task.
[2024-06-21] MEDS: Melatonin 3 MG TABLET 6 MG PO (19:49)
[2024-06-21] MEDS: traZODone HCL 100 MG TABLET PO (19:49)
[2024-06-21 20:00] VITALS: BP 112/84; PULSE 84; TEMP 36.6; O2SAT 97
--- NOTE | 2024-06-22 07:30 | P.PNPSI_ITS ---
Subjective Subjective Date of Service: 06/22/24 Reason For Visit: combative behaviors Subjective Notes: Conditional Voluntary Healthcare Proxy: Yes Interim History: Pt slept most of the night, without any incidences of combative behaviors. He appears calmer today, although pacing the halls. Review of Systems Review of Systems ROS unable to be obtained due to altered mental status Mental Status Exam Mental Status Exam Narrative: Appearance: wearing hospital gown, brief eye contact, poor attention Behavior: not engaging in much conversation Psychomotor: some restlessness Speech: severe receptive and expressive aphasia Mood: unable to assess Affect: somewhat restless SI: unable to assess HI: unable to assess but not signs of it Insight/judgment: impaired x 2. memory/cog: alert, due to severe aphasia unable to assess orientation. severe impairments, not able to follow directions. Diagnostics Vital Signs (24Hr): Vital Signs - 24 hr 06/21/24 07:48 06/21/24 07:51 06/21/24 08:00 Temperature 97.3 F Pulse Rate 81 Respiratory Rate 16 Blood Pressure 116/77 116/77 116/77 Pulse Oximetry 96 Oxygen Delivery Method Room Air 06/21/24 17:03 06/21/24 20:00 Temperature 97.8 F Pulse Rate 84 Respiratory Rate Blood Pressure 102/77 112/84 Pulse Oximetry 89 L 97 Oxygen Delivery Method Room Air Room Air BMI result Body Mass Index 25.2 Labs 06/10/24 23:25 06/17/24 13:55 Imaging Radiology Impressions: ITS Impressions KUB X-Ray 06/10/24 22:44 IMPRESSION: Nonobstructive bowel gas pattern. Scattered retained stool. Electronically signed by: Sam Jimenez MD 06/11/2024 01:57 AM EDT RP Head CT 06/11/24 15:34 IMPRESSION: No acute intracranial pathology. Electronically signed by: Vasquez Ortega DO 06/11/2024 04:55 PM EDT RP Scrotum Ultrasound 06/14/24 15:23 IMPRESSION: Moderate left hydrocele demonstrating low level internal echoes, probably chronic. Additional findings, as above. Electronically signed by: Troy Willett MD 06/14/2024 04:29 PM EDT RP Scrotum Ultrasound 06/14/24 15:23 IMPRESSION: Moderate left hydrocele demonstrating low level internal echoes, probably chronic. Additional findings, as above. Electronically signed by: Troy Willett MD 06/14/2024 04:29 PM EDT RP KUB X-Ray 06/17/24 12:40 IMPRESSION: Nonobstructive bowel gas pattern. Mild to moderate amount of radiodense stool in the rectum. Electronically signed by: Lorrie Pacheco MD 06/17/2024 03:19 PM EDT RP Medications Medications Current Medications Acetaminophen (Acetaminophen 325 Mg Tablet) 650 mg PO Q6H PRN PRN Reason: Headache/Pain Mild Scale (1-3) Al Hydroxide/Mg Hydroxide (Magnesium Hydrox/Alum Hydrox 30 Ml Oral.Susp) 30 ml PO Q6H PRN PRN Reason: Heartburn/Nausea Amlodipine Besylate (Amlodipine Besylate 2.5 Mg Tablet) 2.5 mg PO DAILY [facility]; Protocol Last Admin: 06/21/24 07:51 Dose: 2.5 mg Atorvastatin Calcium (Atorvastatin Calcium 80 Mg Tablet) 80 mg PO DAILY [facility] Last Admin: 06/21/24 07:50 Dose: 80 mg Benztropine Mesylate (Benztropine Mesylate 1 Mg Tablet) 1 mg PO BID PRN PRN Reason: EPS Escitalopram Oxalate (Escitalopram Oxalate 20 Mg Tablet) 20 mg PO DAILY [facility] Last Admin: 06/21/24 07:48 Dose: 20 mg Haloperidol (Haloperidol 1 Mg Tablet) 2 mg PO BID@1500,2100 [facility] Last Admin: 06/21/24 19:49 Dose: 2 mg Haloperidol (Haloperidol 1 Mg Tablet) 2 mg PO BID PRN PRN Reason: agitation Last Admin: 06/21/24 18:31 Dose: 2 mg Losartan Potassium (Losartan Potassium 25 Mg Tablet) 25 mg PO DAILY [facility]; Protocol Last Admin: 06/21/24 07:48 Dose: 25 mg Magnesium Hydroxide (Milk Of Magnesia 30 Ml Oral.Susp) 30 ml PO DAILY PRN PRN Reason: Constipation Melatonin (Melatonin 3 Mg Tablet) 6 mg PO BEDTIME [facility] Last Admin: 06/21/24 19:49 Dose: 6 mg Oxcarbazepine (Oxcarbazepine 300 Mg Tablet) 300 mg PO BID [facility] Last Admin: 06/21/24 19:49 Dose: 300 mg Polyethylene Glycol (Polyethylene Glycol 3350 17 Gm Powd.Pack) 17 gm PO DAILY [facility] Last Admin: 06/21/24 07:54 Dose: 17 gm Propranolol HCl (Propranolol Hcl 10 Mg Tablet) 5 mg PO TID [facility]; Protocol Last Admin: 06/21/24 19:49 Dose: 5 mg Rivaroxaban (Rivaroxaban 20 Mg Tablet) 20 mg PO DAILY@1700 [facility] Last Admin: 06/21/24 16:44 Dose: Not Given Trazodone HCl (Trazodone Hcl 50 Mg Tablet) 50 mg PO BEDTIME MRX1 PRN PRN Reason: Insomnia Last Admin: 06/20/24 23:06 Dose: 50 mg Trazodone HCl (Trazodone Hcl 100 Mg Tablet) 100 mg PO BEDTIME [facility] Last Admin: 06/21/24 19:49 Dose: 100 mg Allergies Allergies Allergy/AdvReac Type Severity Reaction Status Date / Time No Known Allergies Allergy Verified 06/10/24 22:24 [No Known Allergies*] Assessment & Plan Assessment & Plan (1) Frontotemporal dementia with behavioral disturbance: Status: Acute Code(s): G31.09 - Other frontotemporal neurocognitive disorder; F02.818 - Dementia in other diseases classified elsewhere, unspecified severity, with other behavioral disturbance Plan in level of care for safety containment and stabilization. 06/19- change meds to liquid see if more able to be consistent- my guess is that intermittent spitting out meds maybe why he struggled partly on transition to [facility]. 06/20- change haldol to olanzapine zydis- for a day to see if that is more helpful - 06/21 d/c olanzapine, he had this medication last week with more confusion and sedation. Will add propanolol 5mg po TID- some degree of akathisia and restless which could be related to progression of frontotemporal. restart haldol 2mg po BID, prn doses. no EPS on exam. 06/22 continue current medications Reason for continued inpatient stay Substantial Risk for: inability to function Time Spent With Patient Time: Total time managing care of this patient today ____ minutes.
[2024-06-22 08:00] VITALS: BP 136/95; PULSE 84; RESP 18; O2SAT 97
[2024-06-22] MEDS: OXcarbazepine 300 MG TABLET PO ×2 (10:32→20:53)
[2024-06-22] MEDS: amLODIPine Besylate 2.5 MG TABLET PO (10:32)
[2024-06-22] MEDS: Atorvastatin Calcium 80 MG TABLET PO (10:32)
[2024-06-22] MEDS: Losartan Potassium 25 MG TABLET PO (10:32)
[2024-06-22] MEDS: Escitalopram Oxalate 20 MG TABLET PO (10:32)
[2024-06-22] MEDS: Propranolol HCL 10 MG TABLET 5 MG PO ×3 (10:33→20:54)
--- NOTE | 2024-06-22 14:35 | HO.BHRESTREX ---
Behavioral Restraint Exam Behavioral Health Restraint Exam Behavioral Assessment / Plan: No further behavioral concerns, continue current plan.
[2024-06-22] MEDS: HaloperidoL 1 MG TABLET 2 MG PO ×3 (15:51→22:09)
[2024-06-22] MEDS: Rivaroxaban 20 MG TABLET PO (15:52)
[2024-06-22 20:00] VITALS: BP 130/70; PULSE 75; RESP 18; TEMP 36.3; O2SAT 96
[2024-06-22] MEDS: traZODone HCL 100 MG TABLET PO (20:53)
[2024-06-22] MEDS: traZODone HCL 50 MG TABLET PO ×2 (20:53→22:11)
[2024-06-22 20:54] VITALS: BP 130/70; PULSE 75
[2024-06-22] MEDS: Melatonin 3 MG TABLET 6 MG PO (20:54)
[2024-06-23 07:45] VITALS: BP 138/76; PULSE 80; RESP 18; TEMP 36.8; O2SAT 92
[2024-06-23] MEDS: Losartan Potassium 25 MG TABLET PO (08:22)
[2024-06-23] MEDS: Atorvastatin Calcium 80 MG TABLET PO (08:22)
[2024-06-23] MEDS: OXcarbazepine 300 MG TABLET PO ×2 (08:22→20:32)
[2024-06-23] MEDS: amLODIPine Besylate 2.5 MG TABLET PO (08:22)
[2024-06-23] MEDS: Escitalopram Oxalate 20 MG TABLET PO (08:23)
[2024-06-23] MEDS: Propranolol HCL 10 MG TABLET 5 MG PO (08:23)
[2024-06-23] MEDS: polyethylene glycoL 3350 17 GM POWD.PACK PO (08:23)
--- NOTE | 2024-06-23 14:50 | HO.BHRESTREX ---
Behavioral Restraint Exam Behavioral Health Restraint Exam Reason for Restraint: Occurrence of self-harming or suicidal behavior as evidenced by:
--- NOTE | 2024-06-23 15:18 | MHC.CLN ---
CONSULT CONSULT FOR DECREASED ORAL INTAKE. REVIEW OF PO INTAKE SHOWS USUALLY POOR PO. WILL ACCEPT ENSURE AND ICE CREAM. ADDING MAGIC CUP FORTIFIED ICE CREAM TID. PROVIDES 870 KCALS, 27 G PROTEIN. ENCOURAGE INTAKE ABLE.
[2024-06-23 15:19] VITALS: BP 109/66; PULSE 84
[2024-06-23] MEDS: Propranolol HCL 10 MG TABLET PO ×2 (15:19→20:32)
[2024-06-23] MEDS: HaloperidoL 1 MG TABLET 2 MG PO ×3 (15:20→20:31)
--- NOTE | 2024-06-23 16:40 | HO.PSYCHPN ---
Subjective Subjective Date of Service: 06/23/24 Reason For Visit: combative behaviors Subjective Notes: Conditional Voluntary Healthcare Proxy: Yes Interim History: Pt slept most of the night, without any incidences of combative behaviors. He has been up for breakfast. No combative behaviors. He appears more alert. Able to eat some on his own. Family meeting to discuss goals of care- including management of agitation with medication. we discussed he does not meet criteria for hospice at this time, but management is palliative. Support offered to family as they cope with watching loved one decline. He is taking medications as prescribed. Medication Compliance: Yes Side effects from medications: No Attending Groups: No Review of Systems Review of Systems ROS unable to be obtained due to altered mental status Mental Status Exam Mental Status Exam Narrative: Appearance: wearing hospital gown, brief eye contact, poor attention Behavior: not engaging in much conversation Psychomotor: some restlessness Speech: severe receptive and expressive aphasia Mood: unable to assess Affect: somewhat restless SI: unable to assess HI: unable to assess but not signs of it Insight/judgment: impaired x 2. memory/cog: alert, due to severe aphasia unable to assess orientation. severe impairments, not able to follow directions. Diagnostics Vital Signs (24Hr): Vital Signs - 24 hr 06/22/24 20:00 06/22/24 20:54 06/23/24 07:45 Temperature 97.3 F 98.2 F Pulse Rate 75 75 80 Respiratory Rate 18 18 Blood Pressure 130/70 130/70 138/76 Pulse Oximetry 96 92 Oxygen Delivery Method Room Air Room Air 06/23/24 15:19 Temperature Pulse Rate 84 Respiratory Rate Blood Pressure 109/66 Pulse Oximetry Oxygen Delivery Method BMI result Body Mass Index 25.2 Labs 06/10/24 23:25 06/24/24 07:55 Imaging Radiology Impressions: ITS Impressions KUB X-Ray 06/10/24 22:44 IMPRESSION: Nonobstructive bowel gas pattern. Scattered retained stool. Electronically signed by: Sam Jimenez MD 06/11/2024 01:57 AM EDT RP Head CT 06/11/24 15:34 IMPRESSION: No acute intracranial pathology. Electronically signed by: Vasquez Ortega DO 06/11/2024 04:55 PM EDT RP Scrotum Ultrasound 06/14/24 15:23 IMPRESSION: Moderate left hydrocele demonstrating low level internal echoes, probably chronic. Additional findings, as above. Electronically signed by: Troy Willett MD 06/14/2024 04:29 PM EDT RP Scrotum Ultrasound 06/14/24 15:23 IMPRESSION: Moderate left hydrocele demonstrating low level internal echoes, probably chronic. Additional findings, as above. Electronically signed by: Troy Willett MD 06/14/2024 04:29 PM EDT RP KUB X-Ray 06/17/24 12:40 IMPRESSION: Nonobstructive bowel gas pattern. Mild to moderate amount of radiodense stool in the rectum. Electronically signed by: Lorrie Pacheco MD 06/17/2024 03:19 PM EDT RP Medications Medications Current Medications Acetaminophen (Acetaminophen 325 Mg Tablet) 650 mg PO Q6H PRN PRN Reason: Headache/Pain Mild Scale (1-3) Al Hydroxide/Mg Hydroxide (Magnesium Hydrox/Alum Hydrox 30 Ml Oral.Susp) 30 ml PO Q6H PRN PRN Reason: Heartburn/Nausea Amlodipine Besylate (Amlodipine Besylate 2.5 Mg Tablet) 2.5 mg PO DAILY [facility]; Protocol Last Admin: 06/23/24 08:22 Dose: 2.5 mg Atorvastatin Calcium (Atorvastatin Calcium 80 Mg Tablet) 80 mg PO DAILY [facility] Last Admin: 06/23/24 08:22 Dose: 80 mg Benztropine Mesylate (Benztropine Mesylate 1 Mg Tablet) 1 mg PO BID PRN PRN Reason: EPS Escitalopram Oxalate (Escitalopram Oxalate 20 Mg Tablet) 20 mg PO DAILY [facility] Last Admin: 06/23/24 08:23 Dose: 20 mg Haloperidol (Haloperidol 1 Mg Tablet) 2 mg PO BID@1500,2100 [facility] Last Admin: 06/23/24 15:20 Dose: 2 mg Haloperidol (Haloperidol 1 Mg Tablet) 2 mg PO BID PRN PRN Reason: agitation Last Admin: 06/22/24 22:09 Dose: 2 mg Losartan Potassium (Losartan Potassium 25 Mg Tablet) 25 mg PO DAILY [facility]; Protocol Last Admin: 06/23/24 08:22 Dose: 25 mg Magnesium Hydroxide (Milk Of Magnesia 30 Ml Oral.Susp) 30 ml PO DAILY PRN PRN Reason: Constipation Melatonin (Melatonin 3 Mg Tablet) 6 mg PO BEDTIME [facility] Last Admin: 06/22/24 20:54 Dose: 6 mg Oxcarbazepine (Oxcarbazepine 300 Mg Tablet) 300 mg PO BID [facility] Last Admin: 06/23/24 08:22 Dose: 300 mg Polyethylene Glycol (Polyethylene Glycol 3350 17 Gm Powd.Pack) 17 gm PO DAILY [facility] Last Admin: 06/23/24 08:23 Dose: 17 gm Propranolol HCl (Propranolol Hcl 10 Mg Tablet) 10 mg PO TID [facility]; Protocol Last Admin: 06/23/24 15:19 Dose: 10 mg Rivaroxaban (Rivaroxaban 20 Mg Tablet) 20 mg PO DAILY@1700 [facility] Last Admin: 06/22/24 15:52 Dose: 20 mg Trazodone HCl (Trazodone Hcl 50 Mg Tablet) 50 mg PO BEDTIME MRX1 PRN PRN Reason: Insomnia Last Admin: 06/22/24 22:11 Dose: 50 mg Trazodone HCl (Trazodone Hcl 100 Mg Tablet) 100 mg PO BEDTIME [facility] Last Admin: 06/22/24 20:53 Dose: 100 mg Allergies Allergies Allergy/AdvReac Type Severity Reaction Status Date / Time No Known Allergies Allergy Verified 06/10/24 22:24 [No Known Allergies*] Assessment & Plan Assessment & Plan (1) Frontotemporal dementia with behavioral disturbance: Status: Acute Code(s): G31.09 - Other frontotemporal neurocognitive disorder; F02.818 - Dementia in other diseases classified elsewhere, unspecified severity, with other behavioral disturbance Plan inpt level of care for safety containment and stabilization. 06/19- change meds to liquid see if more able to be consistent- my guess is that intermittent spitting out meds maybe why he struggled partly on transition to [facility]. 06/20- change haldol to olanzapine zydis- for a day to see if that is more helpful - 06/21 d/c olanzapine, he had this medication last week with more confusion and sedation. Will add propanolol 5mg po TID- some degree of akathisia and restless which could be related to progression of frontotemporal. restart haldol 2mg po BID, prn doses. no EPS on exam. 06/22 continue current medications 06/23 continue tx. will increase propanolol to 10mg po TID- which seems to be helping significantly for restlessness and agitation. Reason for continued inpatient stay Substantial Risk for: inability to function Time Spent With Patient Time: Total time managing care of this patient today ____ minutes.
[2024-06-23] MEDS: Rivaroxaban 20 MG TABLET PO (16:59)
[2024-06-23 20:00] VITALS: BP 130/64; PULSE 76; RESP 20; TEMP 36.6; O2SAT 96
[2024-06-23] MEDS: Melatonin 3 MG TABLET 6 MG PO (20:31)
[2024-06-23 20:32] VITALS: BP 130/64; PULSE 76
[2024-06-23] MEDS: traZODone HCL 100 MG TABLET PO (20:32)
[2024-06-23] MEDS: traZODone HCL 50 MG TABLET PO (20:32)
[2024-06-24 07:00] VITALS: BMI 25.0
[2024-06-24 08:35] LABS: Alanine Aminotransferase 21 U/L (0-40); Albumin Level 3.5 g/dL (3.5-5.0); Alkaline Phosphatase 86 U/L (39-117); Anion Gap 10 (12-20); Aspartate Amino Transferase 18 U/L (5-37); Bilirubin Total 0.5 mg/dL (0.0-1.0); Blood Urea Nitrogen 14 mg/dL (9-16); Calcium 8.8 mg/dL (8.4-10.2); Carbon Dioxide 26 mmol/L (22-29); Chloride 106 mmol/L (96-108); Creatinine Clr Calc Pharmacy 99.5; Estimated Glomerular Filt Rate > 60; Glucose Random 93 mg/dL (60-115); Potassium 3.7 mmol/L (3.3-5.1); Sodium 138 mmol/L (135-145); Total Protein 5.7 g/dL (6.5-8.0)
[2024-06-24 08:55] VITALS: BP 123/74; PULSE 73; RESP 18; TEMP 36.8; O2SAT 98
[2024-06-24] MEDS: Losartan Potassium 25 MG TABLET PO (09:12)
[2024-06-24] MEDS: Propranolol HCL 10 MG TABLET PO ×3 (09:14→20:03)
[2024-06-24] MEDS: amLODIPine Besylate 2.5 MG TABLET PO (09:14)
[2024-06-24] MEDS: Escitalopram Oxalate 20 MG TABLET PO (09:14)
[2024-06-24] MEDS: Atorvastatin Calcium 80 MG TABLET PO (09:14)
[2024-06-24] MEDS: OXcarbazepine 300 MG TABLET PO ×2 (09:14→20:02)
[2024-06-24 14:56] VITALS: BP 117/74; PULSE 76
[2024-06-24] MEDS: HaloperidoL 1 MG TABLET 2 MG PO ×2 (14:57→20:02)
--- NOTE | 2024-06-24 15:34 | MHC.SL.SWA ---
Speech Pathologist Impression: N/A Risk of Aspiration Due to: None Dysphasia Diet Status: UPGRADE to REGULAR solids Liquid Consistency and Strategies for Safe Swallow: Liquid Intake Recommendation: Thin Liquid Intake Strategies: Small Sips Solid Food Consistency: Dietary Recommendations: Regular Additional Modifications to Solid Foods: RASPER MACHINE OPERATOR to f/u 1x to monitor tolerance of unmodified diet Oral Medication Intake: Crushed with Puree Please contact the pharmacy regarding appropriate crushable or liquid drug formulations that are available whenever modified delivery is recommended. Compensatory Strategies and Precautions to be Taken for Safe Swallow: Liquids from Cup Liquids from Straw Small Bites and Sips Alternate Liquids/Solids Rate of Ingestion Change Supervision While Eating and Drinking for Safe Swallow: Total Supervision (1:1) Swallowing Recommended Treatments: Compens. Strategy Educat. Recommendation for Speech: Inpatient Speech Therapy Comment: Pt with advanced dementia, requires total cueing to orient to task of eating, when aware, oropharyngeal coordination WNL. Education ongoing with caregivers, anticipate no further RASPER MACHINE OPERATOR intervention indicated at time of d/c, consider if POC transitions to comfort in the future. Frequency/Duration: 1 f/u Date Range for Service Req: Timeline to reassess: Project Engineering Director Clinican/Clinical Fellow: No Supervisory Statement: I have reviewed and agree with the student/clinical fellow's documentation: N/A Speech Language Pathologist: Parvin Olmstead M.A., CCC-RASPER MACHINE OPERATOR
[2024-06-24] MEDS: Rivaroxaban 20 MG TABLET PO (16:23)
[2024-06-24 18:18] LABS: Appearance Urine Clear; Color Urine Yellow; Glucose Urine UA Negative (Negative); Leukocyte Esterase Urine Negative (Negative); Nitrite Urine Negative (Negative); PH 6.5 (5.0-9.0); Urine Blood Negative (Negative); Urine Ketones Trace mg/dL (Negative); Urine Protein Negative (Neg-Trace)
[2024-06-24 18:27] LABS: Bacteria Urine None Seen (None Seen); Hyaline Casts Urine 0-2 /LPF (0-2); RBC Urine 0-2 /HPF (0-2); Squamous Epithelial Cell Urine 0-2 /HPF (0-2); WBC Urine 0-5 /HPF (0-5)
--- NOTE | 2024-06-24 18:33 | P.PNPSI_ITS ---
Subjective Subjective Date of Service: 06/24/24 Reason For Visit: combative behaviors Subjective Notes: Conditional Voluntary Interim History: Pt slept most of the night, without any incidences of combative behaviors. He was up again for breakfast and seemed to be able to swallow and feed himself better. reassessment from ST completed who agrees to upgrade food consistency to regular texture and continue THIN liquids, pills crush in puree direct supervision. Review of Systems Review of Systems ROS unable to be obtained due to altered mental status Mental Status Exam Mental Status Exam Narrative: Appearance: wearing hospital gown, brief eye contact, poor attention Behavior: not engaging in much conversation Psychomotor: some restlessness Speech: severe receptive and expressive aphasia Mood: unable to assess Affect: somewhat restless SI: unable to assess HI: unable to assess but not signs of it Insight/judgment: impaired x 2. memory/cog: alert, due to severe aphasia unable to assess orientation. severe impairments, not able to follow directions. Diagnostics Vital Signs (24Hr): Vital Signs - 24 hr 06/23/24 20:00 06/23/24 20:32 06/24/24 08:55 Temperature 97.9 F 98.2 F Pulse Rate 76 76 73 Respiratory Rate 20 18 Blood Pressure 130/64 130/64 123/74 Pulse Oximetry 96 98 Oxygen Delivery Method Room Air Room Air 06/24/24 14:56 Temperature Pulse Rate 76 Respiratory Rate Blood Pressure 117/74 Pulse Oximetry Oxygen Delivery Method BMI result Body Mass Index 25.0 Labs 06/10/24 23:25 06/24/24 07:55 Labs: Laboratory Results - last 48 hr 06/24/24 06/24/24 07:55 17:15 Sodium 138 Potassium 3.7 Chloride 106 Carbon Dioxide 26 Anion Gap 10 L BUN 14 Creatinine 0.83 Estim Creat Clear Calc 99.5 Estimated GFR > 60 Random Glucose 93 Calcium 8.8 D Total Bilirubin 0.5 AST 18 ALT 21 Alkaline Phosphatase 86 Total Protein 5.7 L Albumin 3.5 Urine Color Yellow Urine Appearance Clear Urine pH 6.5 Ur Specific [place] 1.020 Urine Protein Negative Urine Glucose (UA) Negative Urine Ketones Trace Urine Blood Negative Urine Nitrite Negative Ur Leukocyte Esterase Negative Urine RBC 0-2 Urine WBC 0-5 Ur Squamous Epith Cells 0-2 Urine Bacteria None Seen Hyaline Casts 0-2 Imaging Radiology Impressions: ITS Impressions KUB X-Ray 06/10/24 22:44 IMPRESSION: Nonobstructive bowel gas pattern. Scattered retained stool. Electronically signed by: Sam Jimenez MD 06/11/2024 01:57 AM EDT RP Head CT 06/11/24 15:34 IMPRESSION: No acute intracranial pathology. Electronically signed by: Vasquez Ortega DO 06/11/2024 04:55 PM EDT RP Scrotum Ultrasound 06/14/24 15:23 IMPRESSION: Moderate left hydrocele demonstrating low level internal echoes, probably chronic. Additional findings, as above. Electronically signed by: Troy Willett MD 06/14/2024 04:29 PM EDT RP Scrotum Ultrasound 06/14/24 15:23 IMPRESSION: Moderate left hydrocele demonstrating low level internal echoes, probably chronic. Additional findings, as above. Electronically signed by: Troy Willett MD 06/14/2024 04:29 PM EDT RP KUB X-Ray 06/17/24 12:40 IMPRESSION: Nonobstructive bowel gas pattern. Mild to moderate amount of radiodense stool in the rectum. Electronically signed by: Lorrie Pacheco MD 06/17/2024 03:19 PM EDT RP Medications Medications Current Medications Acetaminophen (Acetaminophen 325 Mg Tablet) 650 mg PO Q6H PRN PRN Reason: Headache/Pain Mild Scale (1-3) Al Hydroxide/Mg Hydroxide (Magnesium Hydrox/Alum Hydrox 30 Ml Oral.Susp) 30 ml PO Q6H PRN PRN Reason: Heartburn/Nausea Amlodipine Besylate (Amlodipine Besylate 2.5 Mg Tablet) 2.5 mg PO DAILY [facility]; Protocol Last Admin: 06/24/24 09:14 Dose: 2.5 mg Atorvastatin Calcium (Atorvastatin Calcium 80 Mg Tablet) 80 mg PO DAILY [facility] Last Admin: 06/24/24 09:14 Dose: 80 mg Benztropine Mesylate (Benztropine Mesylate 1 Mg Tablet) 1 mg PO BID PRN PRN Reason: EPS Escitalopram Oxalate (Escitalopram Oxalate 20 Mg Tablet) 20 mg PO DAILY [facility] Last Admin: 06/24/24 09:14 Dose: 20 mg Haloperidol (Haloperidol 1 Mg Tablet) 2 mg PO BID@1500,2100 [facility] Last Admin: 06/24/24 14:57 Dose: 2 mg Haloperidol (Haloperidol 1 Mg Tablet) 2 mg PO BID PRN PRN Reason: agitation Last Admin: 06/23/24 20:31 Dose: 2 mg Losartan Potassium (Losartan Potassium 25 Mg Tablet) 25 mg PO DAILY [facility]; Protocol Last Admin: 06/24/24 09:12 Dose: 25 mg Magnesium Hydroxide (Milk Of Magnesia 30 Ml Oral.Susp) 30 ml PO DAILY PRN PRN Reason: Constipation Melatonin (Melatonin 3 Mg Tablet) 6 mg PO BEDTIME [facility] Last Admin: 06/23/24 20:31 Dose: 6 mg Oxcarbazepine (Oxcarbazepine 300 Mg Tablet) 300 mg PO BID [facility] Last Admin: 06/24/24 09:14 Dose: 300 mg Polyethylene Glycol (Polyethylene Glycol 3350 17 Gm Powd.Pack) 17 gm PO DAILY [facility] Last Admin: 06/24/24 09:16 Dose: Not Given Propranolol HCl (Propranolol Hcl 10 Mg Tablet) 10 mg PO TID [facility]; Protocol Last Admin: 06/24/24 14:56 Dose: 10 mg Rivaroxaban (Rivaroxaban 20 Mg Tablet) 20 mg PO DAILY@1700 [facility] Last Admin: 06/24/24 16:23 Dose: 20 mg Trazodone HCl (Trazodone Hcl 50 Mg Tablet) 50 mg PO BEDTIME MRX1 PRN PRN Reason: Insomnia Last Admin: 06/23/24 20:32 Dose: 50 mg Trazodone HCl (Trazodone Hcl 100 Mg Tablet) 100 mg PO BEDTIME [facility] Last Admin: 06/23/24 20:32 Dose: 100 mg Allergies Allergies Allergy/AdvReac Type Severity Reaction Status Date / Time No Known Allergies Allergy Verified 06/10/24 22:24 [No Known Allergies*] Assessment & Plan Assessment & Plan (1) Frontotemporal dementia with behavioral disturbance: Status: Acute Code(s): G31.09 - Other frontotemporal neurocognitive disorder; F02.818 - Dementia in other diseases classified elsewhere, unspecified severity, with other behavioral disturbance Plan inpt level of care for safety containment and stabilization. 06/19- change meds to liquid see if more able to be consistent- my guess is that intermittent spitting out meds maybe why he struggled partly on transition to [facility]. 06/20- change haldol to olanzapine zydis- for a day to see if that is more helpful - 06/21 d/c olanzapine, he had this medication last week with more confusion and sedation. Will add propanolol 5mg po TID- some degree of akathisia and restless which could be related to progression of frontotemporal. restart haldol 2mg po BID, prn doses. no EPS on exam. 06/22 continue current medications 06/23 propanolol increased to 10mg po TID 06/24 continue tx. diet upgraded to regular consistency with continued thin liquids and direct supervision. Reason for continued inpatient stay Substantial Risk for: inability to function Time Spent With Patient Time: Total time managing care of this patient today ____ minutes.
[2024-06-24 20:00] VITALS: BP 104/71; PULSE 74; RESP 16; TEMP 36.1; O2SAT 96
[2024-06-24] MEDS: Melatonin 3 MG TABLET 6 MG PO (20:01)
[2024-06-24] MEDS: traZODone HCL 50 MG TABLET PO (20:02)
[2024-06-24 20:03] VITALS: BP 104/71; PULSE 72
[2024-06-24] MEDS: traZODone HCL 100 MG TABLET PO (20:04)
[2024-06-25 08:15] VITALS: BP 110/72; PULSE 70; RESP 18; TEMP 36.8; O2SAT 98
[2024-06-25] MEDS: Atorvastatin Calcium 80 MG TABLET PO (08:56)
[2024-06-25] MEDS: Propranolol HCL 10 MG TABLET PO ×3 (08:56→19:46)
[2024-06-25] MEDS: Losartan Potassium 25 MG TABLET PO (08:56)
[2024-06-25] MEDS: OXcarbazepine 300 MG TABLET PO ×2 (08:56→19:46)
[2024-06-25] MEDS: amLODIPine Besylate 2.5 MG TABLET PO (08:57)
[2024-06-25] MEDS: Escitalopram Oxalate 20 MG TABLET PO (08:57)
[2024-06-25] MEDS: polyethylene glycoL 3350 17 GM POWD.PACK PO (08:57)
[2024-06-25] MEDS: Sennosides/Docusate Sodium TABLET 1 TAB PO ×3 (09:07→19:45)
--- NOTE | 2024-06-25 09:33 | P.PNPSI_ITS ---
Subjective Subjective Date of Service: 06/25/24 Reason For Visit: combative behaviors Subjective Notes: Conditional Voluntary Healthcare Proxy: Yes Interim History: Pt slept about 8hrs. He has been calmer, no aggression. He continues to pace halls when awake but not aggressive at all. No cogwheel. He is eating better. VS stable. No recorded BM since 06/20- added dulcolax. He is passing gas, no vomiting nor abdominal pain. Review of Systems Review of Systems ROS unable to be obtained due to altered mental status Mental Status Exam Mental Status Exam Narrative: Appearance: wearing hospital gown, brief eye contact, poor attention Behavior: not engaging in much conversation Psychomotor: some restlessness Speech: severe receptive and expressive aphasia Mood: unable to assess Affect: somewhat restless SI: unable to assess HI: unable to assess but not signs of it Insight/judgment: impaired x 2. memory/cog: alert, due to severe aphasia unable to assess orientation. severe impairments, not able to follow directions. Diagnostics Vital Signs (24Hr): Vital Signs - 24 hr 06/24/24 14:56 06/24/24 20:00 06/24/24 20:03 Temperature 96.9 F Pulse Rate 76 74 72 Respiratory Rate 16 Blood Pressure 117/74 104/71 104/71 Pulse Oximetry 96 Oxygen Delivery Method Room Air BMI result Body Mass Index 25.0 Labs 06/10/24 23:25 06/24/24 07:55 Labs: Laboratory Results - last 48 hr 06/24/24 06/24/24 07:55 17:15 Sodium 138 Potassium 3.7 Chloride 106 Carbon Dioxide 26 Anion Gap 10 L BUN 14 Creatinine 0.83 Estim Creat Clear Calc 99.5 Estimated GFR > 60 Random Glucose 93 Calcium 8.8 D Total Bilirubin 0.5 AST 18 ALT 21 Alkaline Phosphatase 86 Total Protein 5.7 L Albumin 3.5 Urine Color Yellow Urine Appearance Clear Urine pH 6.5 Ur Specific [place] 1.020 Urine Protein Negative Urine Glucose (UA) Negative Urine Ketones Trace Urine Blood Negative Urine Nitrite Negative Ur Leukocyte Esterase Negative Urine RBC 0-2 Urine WBC 0-5 Ur Squamous Epith Cells 0-2 Urine Bacteria None Seen Hyaline Casts 0-2 Imaging Radiology Impressions: ITS Impressions KUB X-Ray 06/10/24 22:44 IMPRESSION: Nonobstructive bowel gas pattern. Scattered retained stool. Electronically signed by: Sam Jimenez MD 06/11/2024 01:57 AM EDT RP Head CT 06/11/24 15:34 IMPRESSION: No acute intracranial pathology. Electronically signed by: Vasquez Ortega DO 06/11/2024 04:55 PM EDT RP Scrotum Ultrasound 06/14/24 15:23 IMPRESSION: Moderate left hydrocele demonstrating low level internal echoes, probably chronic. Additional findings, as above. Electronically signed by: Troy Willett MD 06/14/2024 04:29 PM EDT RP Scrotum Ultrasound 06/14/24 15:23 IMPRESSION: Moderate left hydrocele demonstrating low level internal echoes, probably chronic. Additional findings, as above. Electronically signed by: Troy Willett MD 06/14/2024 04:29 PM EDT RP KUB X-Ray 06/17/24 12:40 IMPRESSION: Nonobstructive bowel gas pattern. Mild to moderate amount of radiodense stool in the rectum. Electronically signed by: Lorrie Pacheco MD 06/17/2024 03:19 PM EDT RP Medications Medications Current Medications Acetaminophen (Acetaminophen 325 Mg Tablet) 650 mg PO Q6H PRN PRN Reason: Headache/Pain Mild Scale (1-3) Al Hydroxide/Mg Hydroxide (Magnesium Hydrox/Alum Hydrox 30 Ml Oral.Susp) 30 ml PO Q6H PRN PRN Reason: Heartburn/Nausea Amlodipine Besylate (Amlodipine Besylate 2.5 Mg Tablet) 2.5 mg PO DAILY [facility]; Protocol Last Admin: 06/25/24 08:57 Dose: 2.5 mg Atorvastatin Calcium (Atorvastatin Calcium 80 Mg Tablet) 80 mg PO DAILY [facility] Last Admin: 06/25/24 08:56 Dose: 80 mg Benztropine Mesylate (Benztropine Mesylate 1 Mg Tablet) 1 mg PO BID PRN PRN Reason: EPS Escitalopram Oxalate (Escitalopram Oxalate 20 Mg Tablet) 20 mg PO DAILY [facility] Last Admin: 06/25/24 08:57 Dose: 20 mg Haloperidol (Haloperidol 1 Mg Tablet) 2 mg PO BID@1500,2100 [facility] Last Admin: 06/24/24 20:02 Dose: 2 mg Haloperidol (Haloperidol 1 Mg Tablet) 2 mg PO BID PRN PRN Reason: agitation Last Admin: 06/23/24 20:31 Dose: 2 mg Losartan Potassium (Losartan Potassium 25 Mg Tablet) 25 mg PO DAILY [facility]; Protocol Last Admin: 06/25/24 08:56 Dose: 25 mg Magnesium Hydroxide (Milk Of Magnesia 30 Ml Oral.Susp) 30 ml PO DAILY PRN PRN Reason: Constipation Melatonin (Melatonin 3 Mg Tablet) 6 mg PO BEDTIME [facility] Last Admin: 06/24/24 20:01 Dose: 6 mg Oxcarbazepine (Oxcarbazepine 300 Mg Tablet) 300 mg PO BID [facility] Last Admin: 06/25/24 08:56 Dose: 300 mg Polyethylene Glycol (Polyethylene Glycol 3350 17 Gm Powd.Pack) 17 gm PO DAILY [facility] Last Admin: 06/25/24 08:57 Dose: 17 gm Propranolol HCl (Propranolol Hcl 10 Mg Tablet) 10 mg PO TID [facility]; Protocol Last Admin: 06/25/24 08:56 Dose: 10 mg Rivaroxaban (Rivaroxaban 20 Mg Tablet) 20 mg PO DAILY@1700 [facility] Last Admin: 06/24/24 16:23 Dose: 20 mg Senna/Docusate Sodium (Sennosides/Docusate Sodium Tablet) 1 tab PO BID [facility] Last Admin: 06/25/24 09:08 Dose: 1 tab Trazodone HCl (Trazodone Hcl 50 Mg Tablet) 50 mg PO BEDTIME MRX1 PRN PRN Reason: Insomnia Last Admin: 06/24/24 20:02 Dose: 50 mg Trazodone HCl (Trazodone Hcl 100 Mg Tablet) 100 mg PO BEDTIME [facility] Last Admin: 06/24/24 20:04 Dose: 100 mg Allergies Allergies Allergy/AdvReac Type Severity Reaction Status Date / Time No Known Allergies Allergy Verified 06/10/24 22:24 [No Known Allergies*] Assessment & Plan Assessment & Plan (1) Frontotemporal dementia with behavioral disturbance: Status: Acute Code(s): G31.09 - Other frontotemporal neurocognitive disorder; F02.818 - Dementia in other diseases classified elsewhere, unspecified severity, with other behavioral disturbance Plan inpt level of care for safety containment and stabilization. 06/19- change meds to liquid see if more able to be consistent- my guess is that intermittent spitting out meds maybe why he struggled partly on transition to [facility]. 06/20- change haldol to olanzapine zydis- for a day to see if that is more helpful - 06/21 d/c olanzapine, he had this medication last week with more confusion and sedation. Will add propanolol 5mg po TID- some degree of akathisia and restless which could be related to progression of frontotemporal. restart haldol 2mg po BID, prn doses. no EPS on exam. 06/22 continue current medications 06/23 propanolol increased to 10mg po TID 06/24 continue tx. diet upgraded to regular consistency with continued thin liquids and direct supervision. 06/25 dulcolax for constipation. monitor constipation, no BM since 06/20. may need water tap enema. Reason for continued inpatient stay Substantial Risk for: inability to function Time Spent With Patient Time: Total time managing care of this patient today ____ minutes.
--- NOTE | 2024-06-25 12:33 | MHC.CLN ---
F/U SEEN BY DATABASE REPORTING CONSULTANT WITH DIET UPGRADE TO REGULAR CONSISTENCY. VISITED AT [facility] TODAY. ACCEPTS FEEDING. INTAKE MAY IMPROVE WITH REGULAR CONSISTENCY. ACCEPT ENSURE AND ICE CREAM. ADDING ENSURE TID (1050 KCALS, 60 G PROTEIN) IN ADDITION TO MAGIC CUP FORTIFIED ICE CREAM TID (870 KCALS, 27 G PROTEIN). ENCOURAGE INTAKE ABLE. RD TO FOLLOW UP WEEKLY.
--- NOTE | 2024-06-25 13:03 | MHC.SLORD ---
Speech Language Pathology Order Status: SENIOR CONSULTING MANAGER connected with nursing staff around breakfast time and lunch time today. Per RN, patient is tolerating regular textures well, does best when feeding himself finger foods. Nursing staff assists in ordering items from the menu that patient can garbage pick up man and eat. Continue on REGULAR texture diet and THIN liquids with 1:1 supervision. Advised RN if any concerns arise please contact SENIOR CONSULTING MANAGER for re-eval.
[2024-06-25 14:42] VITALS: BP 97/62; PULSE 69
[2024-06-25] MEDS: HaloperidoL 1 MG TABLET 2 MG PO ×2 (14:43→19:45)
[2024-06-25] MEDS: Rivaroxaban 20 MG TABLET PO (16:32)
[2024-06-25] MEDS: traZODone HCL 100 MG TABLET PO (19:44)
[2024-06-25] MEDS: Melatonin 3 MG TABLET 6 MG PO (19:44)
[2024-06-25] MEDS: bisacodyL 5 MG TABLET.DR 10 MG PO (19:45)
[2024-06-25 19:46] VITALS: BP 122/72; PULSE 74
[2024-06-25 20:00] VITALS: BP 122/72; PULSE 74; RESP 16; TEMP 35.7; O2SAT 94
[2024-06-26 08:00] VITALS: BP 137/74; PULSE 86; RESP 18; TEMP 36; O2SAT 96
[2024-06-26 09:04] VITALS: BP 137/74
[2024-06-26] MEDS: amLODIPine Besylate 2.5 MG TABLET PO (09:04)
[2024-06-26] MEDS: Sennosides/Docusate Sodium TABLET 1 TAB PO (09:04)
[2024-06-26 09:05] VITALS: BP 137/74; PULSE 86
[2024-06-26] MEDS: Escitalopram Oxalate 20 MG TABLET PO (09:05)
[2024-06-26] MEDS: Propranolol HCL 10 MG TABLET PO (09:05)
[2024-06-26 09:06] VITALS: BP 137/74
[2024-06-26] MEDS: Losartan Potassium 25 MG TABLET PO (09:06)
[2024-06-26] MEDS: Atorvastatin Calcium 80 MG TABLET PO (09:06)
[2024-06-26] MEDS: OXcarbazepine 300 MG TABLET PO (09:06)
[2024-06-26] MEDS: polyethylene glycoL 3350 17 GM POWD.PACK PO (09:07)
[2024-06-26 09:45] LABS: Glucose, Whole Blood 124 mg/dL (60-115)
--- NOTE | 2024-06-26 10:14 | PM.EVENT ---
Event Note Date of Service: 06/26/24 Event Note: A rapid response was called this morning at 09:30 because of myoclonic seizure activity and patient was transferred to ICU. Time Spent With Patient Time: Total time managing care of this patient today ____ minutes.
--- NOTE | 2024-06-26 10:25 | PC.NURSE ---
The patient let out a loud scream and his body became contorted while he was ambulating in the nevarez with his 1:1 after breakfast. He was lowered to the floor by 3 staff, placed on his left side and a rapid response was called. The patient had a seizure activity lasting approximately 3 minutes at 0935 this morning in the hallway of . Vital signs were 96.9-12-99-105/56 with O2 Sat 94% on room air. The patient was suctioned for excess secretions. He was unresponsive for approximately 5 minutes. He was transferred to [place] via stretcher at 0945. His Martha was called and updated regarding the event and transfer. said that the patient does not have a history of seizures, [employer] [facility] nurse and Dr. Proctor updated. Rachel PARRA also updated that the patient had not moved his bowels in several days. Dr. Proctor in charge of transfer. Dr. Das also updated.
--- NOTE | 2024-06-27 10:29 | PM.PSYDC ---
DS: Providers Provider Date of Service: 06/14/24 Date of admission: 06/14/24 14:52 Date of discharge: 06/26/24 Primary care physician: Deyanira Schilling NP Admitting clinician: Braxton Ramos Attending physician on admission: Braxton Ramos Attending physician on discharge: Sara Proctor Discharging clinician: Sara Proctor DS: Diagnosis Discharge Diagnosis (1) Frontotemporal dementia with behavioral disturbance: Status: Acute DS: Medications Discharge Medications Home Medications: Previous Rx's ?Medication ?Instructions ?Recorded acetaminophen 325 mg tablet 650 mg (2 x 325 mg) PO Q6H PRN 06/26/24 Headache/Pain Mild Scale (1-3) #0 tabs aluminum-magnesium hydroxide 200 30 ml PO Q6H PRN Heartburn/Nausea 06/26/24 mg-200 mg/5 mL oral suspension #0 mL (MAG-AL) amlodipine 2.5 mg tablet 2.5 mg PO DAILY #0 tabs 06/26/24 atorvastatin 80 mg tablet 80 mg PO DAILY #0 tabs 06/26/24 benztropine 1 mg tablet 1 mg PO BID PRN EPS #0 tabs 06/26/24 bisacodyl 5 mg tablet,delayed 10 mg (2 x 5 mg) PO BEDTIME #0 tabs 06/26/24 release escitalopram oxalate 20 mg tablet 20 mg PO DAILY #0 tabs 06/26/24 haloperidol 1 mg tablet 2 mg (2 x 1 mg) PO BID PRN 06/26/24 agitation #0 tabs haloperidol 1 mg tablet 2 mg (2 x 1 mg) PO BID@1500,2100 06/26/24 #0 tabs losartan 25 mg tablet 25 mg PO DAILY #0 tabs 06/26/24 magnesium hydroxide 400 mg/5 mL 30 ml PO DAILY PRN Constipation #0 06/26/24 oral suspension (Milk of Magnesia) mL melatonin 3 mg tablet 6 mg (2 x 3 mg) PO BEDTIME #0 tabs 06/26/24 oxcarbazepine 300 mg tablet 300 mg PO BID #0 tabs 06/26/24 polyethylene glycol 3350 17 gram 17 g PO DAILY #0 ea 06/26/24 oral powder packet propranolol 10 mg tablet 10 mg PO TID #0 tabs 06/26/24 rivaroxaban 20 mg tablet (Xarelto) 20 mg PO DAILY@1700 #0 tabs 06/26/24 sennosides 8.6 mg-docusate sodium 1 tab PO BID #0 tabs 06/26/24 50 mg tablet (Senna Plus) trazodone 100 mg tablet 100 mg PO BEDTIME #0 tabs 06/26/24 trazodone 50 mg tablet 50 mg PO BEDTIME MRX1 PRN Insomnia 06/26/24 #0 tabs Mental Status Exam Mental Status Exam Narrative: Could not examine Data Data Completed and Pending Completed studies during hospitalization [Text1]: 06/24/24 06/24/24 06/26/24 07:55 17:15 09:38 Sodium 138 Potassium 3.7 Chloride 106 Carbon Dioxide 26 Anion Gap 10 L BUN 14 Creatinine 0.83 Estim Creat Clear Calc 99.5 Estimated GFR > 60 POC Glucose 124 H Random Glucose 93 Calcium 8.8 D Total Bilirubin 0.5 AST 18 ALT 21 Alkaline Phosphatase 86 Total Protein 5.7 L Albumin 3.5 Urine Color Yellow Urine Appearance Clear Urine pH 6.5 Ur Specific [place] 1.020 Urine Protein Negative Urine Glucose (UA) Negative Urine Ketones Trace Urine Blood Negative Urine Nitrite Negative Ur Leukocyte Esterase Negative Urine RBC 0-2 Urine WBC 0-5 Ur Squamous Epith Cells 0-2 Urine Bacteria None Seen Hyaline Casts 0-2 Imaging Diagnostic Imaging Impressions KUB X-Ray 06/10/24 22:44 IMPRESSION: Nonobstructive bowel gas pattern. Scattered retained stool. Electronically signed by: Sam Jimenez MD 06/11/2024 01:57 AM EDT RP Head CT 06/11/24 15:34 IMPRESSION: No acute intracranial pathology. Electronically signed by: Vasquez Ortega DO 06/11/2024 04:55 PM EDT RP Scrotum Ultrasound 06/14/24 15:23 IMPRESSION: Moderate left hydrocele demonstrating low level internal echoes, probably chronic. Additional findings, as above. Electronically signed by: Troy Willett MD 06/14/2024 04:29 PM EDT RP Scrotum Ultrasound 06/14/24 15:23 IMPRESSION: Moderate left hydrocele demonstrating low level internal echoes, probably chronic. Additional findings, as above. Electronically signed by: Troy Willett MD 06/14/2024 04:29 PM EDT RP KUB X-Ray 06/17/24 12:40 IMPRESSION: Nonobstructive bowel gas pattern. Mild to moderate amount of radiodense stool in the rectum. Electronically signed by: Lorrie Pacheco MD 06/17/2024 03:19 PM EDT RP Head CT 06/26/24 09:52 IMPRESSION: 1. Markedly limited nondiagnostic exam due to motion artifact. 2. No definite CT evidence of intracranial space-occupying mass, large bleed . If patient is symptomatic would recommend repeat of this exam in 24 hours. Electronically signed by: Ling Rodgers MD 06/26/2024 10:24 AM EDT RP DS: Summary Hospital Course Hospital Course: Cam had a grand mal seizure this morning on 06/26/2024. Rapid response was called and he was subsequently transferred to ICU Status at Discharge Functional status at discharge: bed bound Time Spent with Patient Time attestation: Total time managing care of this patient today ____ minutes. Discharge Plan Discharge Anticipated Discharge Date/Time: 06/26/24 09:52 Patient Disposition: Xfer Other Discharge Diagnosis: dementia Referrals: Deyanira Schilling, PIPE SMOKING MACHINE OFFBEARER [Primary Care Provider] - 1 Week Discharge Medications: New Xarelto 20 mg Tablet 20 mg PO DAILY@1700 Qty: 0 0RF atorvastatin 80 mg Tablet 80 mg PO DAILY Qty: 0 0RF acetaminophen 325 mg Tablet 650 mg PO Q6H PRN (Reason: Headache/Pain Mild Scale (1-3)) Qty: 0 0RF amlodipine 2.5 mg Tablet 2.5 mg PO DAILY Qty: 0 0RF Protocol: Hold for SBP< HOLD for SBP < : 90 losartan 25 mg Tablet 25 mg PO DAILY Qty: 0 0RF Protocol: Hold for SBP< HOLD for SBP < : 90 trazodone 50 mg Tablet 50 mg PO BEDTIME MRX1 PRN (Reason: Insomnia) Qty: 0 0RF haloperidol 1 mg Tablet 2 mg PO BID@1500,2100 Qty: 0 0RF oxcarbazepine 300 mg Tablet 300 mg PO BID Qty: 0 0RF trazodone 100 mg Tablet 100 mg PO BEDTIME Qty: 0 0RF benztropine 1 mg Tablet 1 mg PO BID PRN (Reason: EPS) Qty: 0 0RF bisacodyl 5 mg Tablet,Delayed Release (Dr/Ec) 10 mg PO BEDTIME Qty: 0 0RF escitalopram oxalate 20 mg Tablet 20 mg PO DAILY Qty: 0 0RF MAG-AL 200-200 mg/5 mL Suspension 30 ml PO Q6H PRN (Reason: Heartburn/Nausea) Qty: 0 0RF magnesium hydroxide [Milk of Magnesia] 400 mg/5 mL Suspension 30 ml PO DAILY PRN (Reason: Constipation) Qty: 0 0RF polyethylene glycol 3350 17 gram Powder In Packet 17 g PO DAILY Qty: 0 0RF sennosides-docusate sodium [Senna Plus] 8.6-50 mg Tablet 1 tab PO BID Qty: 0 0RF melatonin 3 mg Tablet 6 mg PO BEDTIME Qty: 0 0RF haloperidol 1 mg Tablet 2 mg PO BID PRN (Reason: agitation) Qty: 0 0RF propranolol 10 mg Tablet 10 mg PO TID Qty: 0 0RF Protocol: Hold for SBP/HR < HOLD for SBP < : 90 HOLD for HR < : 60 Discontinued quetiapine 25 mg tablet 25 mg PO Q6H PRN (Reason: Agitation) quetiapine [Seroquel] 25 mg tablet 25 mg PO BEDTIME amlodipine 2.5 mg tablet 2.5 mg PO DAILY losartan 25 mg tablet 25 mg PO DAILY escitalopram oxalate 20 mg tablet 20 mg PO DAILY Rx Instructions: part of 25mg daily dose aripiprazole 5 mg tablet 5 mg PO DAILY rosuvastatin 40 mg tablet 40 mg PO DAILY escitalopram oxalate 5 mg tablet 5 mg PO DAILY Rx Instructions: part of 25mg daily dose Discharge Orders: Discharge Order (Routine); Ordered 06/26/24 Ordered By: Sara Proctor Activity on Discharge: As tolerated Stand Alone Forms: Patient Portal Discharge page Print Language: Lao Care Plan Goals: To be determined Health Concerns: Seizure activity Plan of Treatment: 06/26/2024 Assessment: Transferred to medical unit Discharge Date/Time: 06/26/24 09:45
== END 2024-06-26 09:45 | disposition other institution (70) | DRG 57 ==
LOC: HO.ED 06-12 10:01 → HO.PGERI 06-14 15:38
PROVIDERS: Emergency Medicine; Psychiatry & Neurology Psychiatry; Admitting Provider Social Worker; Emergency Provider Emergency Medicine Emergency Medical Services; PCP Nurse Practitioner Family; Visit Provider Social Worker
DX: G31.09 Other frontotemporal neurocognitive disorder (principal); F02.811 Dementia in other diseases classified elsewhere, unspecified severity, with agitation; R47.01 Aphasia; R56.9 Unspecified convulsions; D64.9 Anemia, unspecified; Z78.1 Physical restraint status; Z79.01 Long term (current) use of anticoagulants; Z79.899 Other long term (current) drug therapy
CPT/HCPCS: 36415; 70450; 74018; 76870; 80048; 80053; 80061; 80076; 80307; 81001; 81003; 82607; 82947; 83036; 83540; 83735; 84443; 85025; 92526; 92610; 93005; 93975; 99285; J1200; J1630; J1631; J2060; J2250; J2359; S9485

== ENCOUNTER 2024-06-26 10:55 | Inpatient (IN) | payer MEDICARE, SELFPAY ==
--- OUTSIDE RECORDS SUMMARY | 2024-06-26 10:57 | XMS_ITS | Continuity of Care Document ---
Author Organization [facility] ter Address [address] [place] [address]- Care Team Providers Care Forest Pathology Teacher Name Role Phone Cira BLOUNT, Hira Zurita Primary Care Physician Encounter [facility] Date(s): 09/30/19 - 10/07/[address] [address]- [facility] Attending Physician: Stefania BLOUNT, Valente Allergies, Adverse Reactions, Alerts Substance Reaction Severity Status NKA Active Immunizations Not Given Vaccine Date Status Refusal Reason influenza virus vaccine, inactivated 01/08/18 Not Given Patient Refuses pneumococcal 23-valent vaccine 01/08/18 Not Given Patient Refuses Medications donepezil 10 mg oral tablet 10 mg, 1, tablet, By Mouth, Daily at bedtime, Refills 0, Maintenance, 07/21/19 16:11:24 EST Start Date: 07/21/19 Status: Ordered warfarin 5 mg oral tablet 1 tablet, By Mouth, Daily, # 30 tablet, 0 Refills, Maintenance, 08/23/19 7:55:10 EST, 178, cm, 08/09/19 15:56:31 EST, Height, 83.4, kg, 01/05/18 7:04:35 EDT, Dry Weight Start Date: 08/23/19 Status: Ordered Problem List Condition Effective Dates Status Health Status Inform ant Memory loss(Confirmed) Active CAD (coronary artery disease)(Confirmed) Active Embolic stroke(Confirmed) Active HLD (hyperlipidemia)(Confirmed) Active Mitral valve prolapse(Confirmed) Active Mitral regurgitation(Confirmed) Active Anxiety and depression(Confirmed) Active CANELO on CPAP(Confirmed) Active Social History Social History Type Response Smoking Status Former smoker, quit more than 30 days ago entered on: 06/18/19 Sex
--- OUTSIDE RECORDS SUMMARY | 2024-06-26 10:57 | XMS_ITS | Continuity of Care Document ---
Author Organization [facility] Address [address] [place] [phone]- Care Team Providers Care Provider Engagement Executive Name Role Phone Cira BLOUNT, Hira Zurita Primary Care Physician Encounter [facility] Date(s): 06/29/21 - 07/29/[address] [address]- Attending Physician: Cornelia Blandon Admitting Physician: Cornelia Blandon Referring Physician: AdmtrCornelia Allergies, Adverse Reactions, Alerts Substance Reaction Severity Status NKA Active Immunizations Given and Recorded Vaccine Date Status Refusal Reason SARS-CoV-2 (COVID-19) mRNA BNT-162b2 vac 01/27/21 Recorded SARS-CoV-2 (COVID-19) mRNA BNT-162b2 vac 01/06/21 Recorded Not Given Vaccine Date Status Refusal Reason influenza virus vaccine, inactivated 01/08/18 Not Given Patient Refuses pneumococcal 23-valent vaccine 01/08/18 Not Given Patient Refuses Medications amLODIPine 5 mg oral tablet 5 mg, 1, tablet, By Mouth, Daily, # 90 tablet, Refills 3, Tot. Refills 3, Maintenance, 03/22/21 18:12:00 EDT, Route to Pharmacy Electronically, [facility] [address] [place] [address], Partial fill upon patient request if the prescription is for... Start Date: 03/22/21 Status: Ordered Crestor 20 mg oral tablet 1 tablet = 20 mg, By Mouth, Daily, # 90 tablet, 3 Refills, Maintenance, 03/02/21 17:31:00 EDT, Tablet, [facility] [address] [place] [address], Partial fill upon patient request if the prescription is for a schedule II opioid drug., 178, cm, ... Start Date: 03/02/21 Status: Ordered donepezil 10 mg oral tablet 10 mg, 1, tablet, By Mouth, Daily at bedtime, Refills 0, Maintenance, 07/21/19 16:11:24 EST Start Date: 07/21/19 Status: Ordered escitalopram 20 mg oral tablet 1 tablet = 20 mg, By Mouth, Daily, # 90 tablet, 3 Refills, Maintenance, 04/05/21 12:15:00 EDT, Tablet, [facility] [address] [place] [address], [place], Partial fill upon patient request if the prescription is for a schedule II opioid drug., 178, cm, ... Start Date: 04/05/21 Status: Ordered Namenda XR 28 mg oral capsule, extended release 1 capsule = 28 mg, By Mouth, Daily, # 30 capsule, 0 Refills, Maintenance, 01/31/20 14:53:00 EDT, ERCapsule Start Date: 01/31/20 Status: Ordered Xarelto 20 mg oral tablet 1 tablet = 20 mg, By Mouth, Daily before dinner, stop wafarin;check INR daily start Xarelto once INR < 3, # 90 each, 3 Refills, Maintenance, 05/26/21 9:27:00 EDT, [facility] [address] [place] [address], [place], corrected instructions on switch of meds... Start Date: 05/26/21 Status: Ordered Problem List Condition Effective Dates Status Health Status Inform ant Alzheimer disease(Confirmed) Active Memory loss(Confirmed) Active CAD (coronary artery disease)(Confirmed) Active Embolic stroke(Confirmed) Active HLD (hyperlipidemia)(Confirmed) Active Hypertension(Confirmed) Active Major depression(Confirmed) Active Mitral valve prolapse(Confirmed) Active Mitral regurgitation(Confirmed) Active Anxiety and depression(Confirmed) Active CANELO on CPAP(Confirmed) Active Social History Social History Type Response Smoking Status Former smoker, quit more than 30 days ago entered on: 06/18/19 Sex
--- OUTSIDE RECORDS SUMMARY | 2024-06-26 10:57 | XMS_ITS | Continuity of Care Document ---
Author Organization [facility] Address [address] [place] [address]- Care Team Providers Care Environmental Engineering Aide Name Role Phone NO, REFERRING DOCTOR Primary Care Physician Encounter [facility] [id number] Date(s): 10/28/22 - 10/28/22 [facility] [id number] [place] [address]- [place] Encounter Diagnosis Unruptured cyst of right popliteal space(Discharge Diagnosis) - 10/28/22 Discharge Disposition: DISCHARGED HOME/SELF CARE Attending Physician: MARY MAZARIEGOS MD Admitting Physician: MARY MAZARIEGOS MD Allergies, Adverse Reactions, Alerts No Known Medication Allergies Results Radiology Reports * Exam Date Time Procedure Performing Provider Status 10/28/22 1:46 PM US LE Venous Duplex Right Abena Butler Ultrasound Techno; Modified Notes: (US LE Venous Duplex Right) Reason For Exam: r/o DVT;Other (please specify) REPORT EXAMINATION: US LE Venous Duplex Right CLINICAL INDICATION: Male, 57 years old. r/o DVT - Other (please specify) TECHNIQUE: Sonogram of the venous system was performed assessing grayscale appearance, color Doppler flow, andcompressibility. Comparison: None FINDINGS: Normal compressibility, color flow, phasicity and augmentation of the right lower extremity deep venous system were demonstrated. IMPRESSION: No sonographic evidence of right lower extremity DVT. Electronically signed by: Flor Wise DO 10/28/2022 1:24 PM [facility] Final Signed by: FLOR WISE DO Signed (Electronic Signature): 10/28/2022 02:26 pm EST ADDENDUM ADDENDUM #1 There is a complex avascular right popliteal fossa fluid collection measuring 5.1 cm x 1.9 cm. Thismay be a complex Oneal's cyst. MRI may be obtained for further evaluation. Electronically signed by: Flor Wise DO 10/28/2022 2:09 PM [facility] Final Signed by: FLOR WISE DO Signed (Electronic Signature): 10/28/2022 03:11 pm EST Vital Signs Most recent to oldest [Reference Range]: 1 Patient Height 180.34 cm (10/28/22 12:01 PM) Patient Weight (kg) 90.717 kg (10/28/22 12:01 PM) Emily Body Weight Calculated 75.3 kg (10/28/22 12:01 PM) Blood Pressure [95-120/59-81 mmHg] 143/8 4mmHg *HI* (10/28/22 12:04 PM) Temperature Oral [96.6-99.6 DegF] 98.1 D egF (10/28/22 12:04 PM) SpO2 98 % (10/28/22 12:04 PM) Peripheral Pulse Rate [60-100 bpm] 78 bp m (10/28/22 12:04 PM) Respiratory Rate [10-21 br/min] 18 br/mi n (10/28/22 12:04 PM) Social History Social History Type Response Sex Male Hospital Discharge Instructions Patient Education 10/28/2022 13:42:49 Oneal Cyst Oneal Cyst A Oneal cyst, also called a popliteal cyst, is a growth that forms at the back of the knee. The cyst forms when the fluid-filled sac (bursa) that cushions the knee joint becomes enlarged. What are the causes? In most cases, a Oneal cyst results from another knee problem that causes swelling inside the knee.This makes the fluid inside the knee joint (synovial fluid) flow into the bursa behind the knee, causing the bursa to enlarge. What increases the risk? You may be more likely to develop a Oneal cyst if you already have a knee problem, such as: ??? A tear in cartilage that cushions the knee joint (meniscal tear). ??? A tear in the tissues that connect the bones of the knee joint (ligament tear). ??? Knee swelling from osteoarthritis, rheumatoid arthritis, or gout. What are the signs or symptoms? The main symptom of this condition is a lump behind the knee. This may be the only symptom of the condition. The lump may be painful, especially when the knee is straightened. If the lump is painful,the pain may come and go. The knee may also be stiff. Symptoms may quickly get more severe if the cyst breaks open (ruptures). If the cyst ruptures, you may feel the following in your knee and calf: ??? Sudden or worsening pain. ??? Swelling. ??? Bruising. ??? Redness in the calf. A Oneal cyst does not always cause symptoms. How is this diagnosed? This condition may be diagnosed based on your symptoms and medical history. Your health care provider will also do a physical exam. This may include: ??? Feeling the cyst to check whether it is tender. ??? Checking your knee for signs of another knee condition that causes swelling. You may have imaging tests, such as: ??? X-rays. ??? MRI. ??? Ultrasound. How is this treated? A Oneal cyst that is not painful may go away without treatment. If the cyst gets large or painful, it will likely get better if the underlying knee problem is treated. If needed, treatment for a Oneal cyst may include: ??? Resting. ??? Keeping weight off of the knee. This means not leaning on the knee to support your body weight. ??? Taking NSAIDs, such as ibuprofen, to reduce pain and swelling. ??? Having a procedure to drain the fluid from the cyst with a needle (aspiration). You may also get an injection of a medicine that reduces swelling (steroid). ??? Having surgery. This may be needed if other treatments do not work. This usually involves correcting knee damage and removing the cyst. Follow these instructions at home: Activity ??? Rest as told by your health care provider. ??? Avoid activities that make pain or swelling worse. ??? Return to your normal activities as told by your health care provider. Ask your health care provider what activities are safe for you. ??? Do not use the injured limb to support your body weight until your health care provider says that you can. Use crutches as told by your health care provider. General instructions ??? Take guoc-rqq-maxolor and prescription medicines only as told by your health care provider. ??? Keep all follow-up visits as told by your health care provider. This is important. Contact a health care provider if: ??? You have knee pain, stiffness, or swelling that does not get better. Get help right away if: ??? You have sudden or worsening pain and swelling in your calf area. Summary ??? A Oneal cyst, also called a popliteal cyst, is a growth that forms at the back of the knee. ??? In most cases, a Oneal cyst results from another knee problem that causes swelling inside the knee. ??? A Oneal cyst that is not painful may go away without treatment. ??? If needed, treatment for a Oneal cyst may include resting, keeping weight off of the knee, medicines, or draining fluid from the cyst. ??? Surgery may be needed if other treatments are not effective. This information is not intended to replace advice given to you by your health care provider. Make sure you discuss any questions you have with your health care provider. Document Revised: 01/14/2020 Document Reviewed: 01/14/2020 [employer] Patient Education ?? 2021 [employer]. Follow Up Care 10/28/2022 11:55:45 With:REFERRING NO Address: [address] [place] [phone] Business (1) When:1 to 2 days With:ROSALES MARTINEZ Address: [address] [place] [phone] Business (1) When:1 to 2 days Comments:Call for followup [phone] With:Follow up with primary care provider Address:Unknown When:1 to 2 days Comments:Call for followup appointment US.doppler Lower extremity vein - right * FLOR WISE DO: VERIFY, VERIFY Event Display: Report EXAMINATION: US LE Venous Duplex Right CLINICAL INDICATION: Male, 57 years old. r/o DVT - Other (please specify) TECHNIQUE: Sonogram of the venous system was performed assessing grayscale appearance, color Doppler flow, andcompressibility. Comparison: None FINDINGS: Normal compressibility, color flow, phasicity and augmentation of the right lower extremity deep venous system were demonstrated. IMPRESSION: No sonographic evidence of right lower extremity DVT. Electronically signed by: Flor Wise DO 10/28/2022 1:24 PM AUTHORIZATION REPRESENTATIVE Final Signed by: FLOR WISE DO Signed (Electronic Signature): 10/28/2022 02:26 pm EST Note * FLOR WISE DO: VERIFY, MODIFY Event Display: Addendum ADDENDUM #1 There is a complex avascular right popliteal fossa fluid collection measuring 5.1 cm x 1.9 cm. Thismay be a complex Oneal's cyst. MRI may be obtained for further evaluation. Electronically signed by: Flor Wise DO 10/28/2022 2:09 PM AUTHORIZATION REPRESENTATIVE Final Signed by: FLOR WISE DO Signed (Electronic Signature): 10/28/2022 03:11 pm EST Patient Care team information Care Team Personnel Name: NO, REFERRING DOCTOR OT Position: Physician - View Only Member Role: Primary Care Physician Address: Address: [address] [place] [id number]- [place] Name: MARY MAZARIEGOS MD Position: ED Physician Member Role: Attending Physician Address: Address: [address] [address]- [place] Name: Franck Liu Curer [employer] Position: ED Polymerization Oven Operator
--- OUTSIDE RECORDS SUMMARY | 2024-06-26 10:57 | XMS_ITS | Continuity of Care Document ---
Author Organization [facility] Address [address] [place] [id number] Care Team Providers Care Gear Lapper Name Role Phone Cira BLOUNT, Hira Zurita Primary Care Physician [phone] Encounter [facility] [place] Date(s): 03/31/21 - 07/29/[address] [address]- Attending Physician: Elizabeth Rouse MD Admitting Physician: Elizabeth Rouse MD Referring Physician: Hira Denis MD Allergies, Adverse Reactions, Alerts Substance Reaction Severity [...] 03/22/21 18:12:00 EDT, Route to Pharmacy Electronically, [facility] [address] [place] [address], Partial fill upon patient request if the prescription is for... Start Date: 03/22/21 Status: Ordered Crestor 20 mg oral tablet 1 tablet = 20 mg, By Mouth, Daily, # 90 tablet, 3 Refills, Maintenance, 03/02/21 17:31:00 EDT, Tablet, [facility] [address] [place] [address], Partial fill upon patient request if the [...] 3 Refills, Maintenance, 04/05/21 12:15:00 EDT, Tablet, [facility] [address] [place] [address], [place], Partial fill upon patient request if the prescription is for a schedule II opioid drug., 178, cm, .. Start Date: 04/05/21 Status: Ordered Namenda XR [...] each, 3 Refills, Maintenance, 05/26/21 9:27:00 EDT, [facility] [address] [place] [address], [place], corrected instructions on switch of meds... Start [...]
[2024-06-26] MEDS: levETIRAcetam in NaCl (iso-os) 500 MG/100 ML PIGGYBACK 400 MG IV ×3 (11:17→22:22)
[2024-06-26 11:51] LABS: MANUAL DIFF FLAG NO
[2024-06-26 12:00] VITALS: BP 98/58; PULSE 72; RESP 14; TEMP 36.8; O2SAT 90
[2024-06-26 12:03] LABS: Basophils Percent Auto 0.3 % (0-2); Eosinophils Absolute Auto 0.1 X10*3/uL (0.0-0.4); Eosinophils Percent Auto 1.7 % (0-4); Hematocrit 37.3 % (42.0-52.0); Hemoglobin 13.2 g/dl (14.0-18.0); Imm Gran Abs Auto 0.01 X10*3/uL (0.00-0.03); Imm Gran Pct Auto 0.2 % (0.0-0.4); Lymphocytes Percent Auto 16.1 % (20-40); Mean Corpuscular HGB Conc 35.4 g/dl (31.0-36.0); Mean Corpuscular Hemoglobin 30.4 pg (27.0-33.0); Mean Corpuscular Volume 85.9 fL (80.0-98.0); Mean Platelet Volume 8.9 fL (9.4-12.4); Monocytes Absolute Auto 0.4 X10*3/uL (0.1-1.2); Monocytes Percent Auto 6.8 % (2-11); Neutrophils Absolute Auto 4.5 x10*3/uL (2.0-8.3); Neutrophils Percent Auto 74.9 % (45-73); Platelet Count 150 X10*3/uL (160-400); Red Blood Count 4.34 X10*6/uL (4.60-5.80); Red Cell Distribution Width 11.8 % (11.0-16.0)
[2024-06-26 12:13] LABS: C Reactive Protein < 0.04 mg/dL (< or = 0.50)
[2024-06-26 12:14] LABS: Alanine Aminotransferase 21 U/L (0-40); Albumin Level 3.6 g/dL (3.5-5.0); Alkaline Phosphatase 88 U/L (39-117); Anion Gap 11 (12-20); Aspartate Amino Transferase 19 U/L (5-37); Bilirubin Total 0.4 mg/dL (0.0-1.0); Blood Urea Nitrogen 21 mg/dL (9-16); Calcium 8.9 mg/dL (8.4-10.2); Carbon Dioxide 27 mmol/L (22-29); Chloride 105 mmol/L (96-108); Estimated Glomerular Filt Rate > 60; Glucose Random 128 mg/dL (60-115); Magnesium 2.3 mg/dL (1.6-2.6); Potassium 3.5 mmol/L (3.3-5.1); Sodium 139 mmol/L (135-145); Total Protein 5.7 g/dL (6.5-8.0)
[2024-06-26 12:28] LABS: Thyroid Stimulating Hormone 1.78 uIU/mL (0.32-4.0)
--- NOTE | 2024-06-26 12:41 | PHA.MEDREC ---
Addendum entered by Haven Arboleda RPh 06/26/24 12:46: Reviewed by [facility]. Original Note: Pharmacy Consult ? Medication Reconciliation Pharmacy has completed the medication reconciliation. Transferred from [facility], used list from that admission.
--- NOTE | 2024-06-26 14:47 | PM.IMHP ---
History of Present Illness Date of Service: 06/26/24 Chief Complaint: seizure Mr. Mendez is a 59 year-old male with hx of frontotemporal dementia who was brought to the [facility] on 06/10/24 from the [facility], where he's lived since April, due to combative behaviors that were threatening to the staff. In the ED, he was given IM Zyprexa and Versed due to agitation and violent behavior. The ED physician called the patient's gas reverser Deyanira Schilling, who was concerned the patient was experiencing absence seizures that then triggered aggressive behavior. She recommended oxcarbazepine 150 mg daily to increase to 250 mg bid. She also recommended Ativan over antipsychotics due to history of ADD. He was admitted to the geriatric psychiatry service 06/15/24 for behavioral stabilization. Review of course on that unit per RIGHT OF WAY MAINTENANCE SUPERVISOR Fabiola Velez: 06/19- change meds to liquid see if more able to be consistent- my guess is that intermittent spitting out meds maybe why he struggled partly on transition to [facility]. 06/20- change haldol to olanzapine zydis- for a day to see if that is more helpful - 06/21 d/c olanzapine, he had this medication last week with more confusion and sedation. Will add propanolol 5mg po TID- some degree of akathisia and restless which could be related to progression of frontotemporal. restart haldol 2mg po BID, prn doses. no EPS on exam. 06/22 continue current medications 06/23 propanolol increased to 10mg po TID 06/24 continue tx. diet upgraded to regular consistency with continued thin liquids and direct supervision. 06/25 dulcolax for constipation. monitor constipation, no BM since 06/20. may need water tap enema. STRAW HAT MACHINE OPERATOR called this AM for witnessed generalized/tonic-clonic seizure lasting approx 2-3 min after which the patient was observed to be postictal; snoring respirations but protecting his airway with gag reflex. He was lowered by staff to the ground and did not hit his head. BP 105/56, RR 16, P 92, SaO2 94 on RA. Blood glucose 124. Nasal trumpet placed. Pt sent to CT scan then to telemetry unit. Current pt is confused and intermittently trying to get out of bed, which is his current baseline per his and sons. He does not have a history of seizure disorder. No fever. Otherwise unable to obtain ROS. Review of Systems Review of Systems: Yes Unobtainable due to mental status PMFSH Medical History Hyperlipidemia HTN (hypertension) Frontotemporal dementia Surgical History Mitral valve replaced Social History Household Members: Other Household Members Other:: Pt lives at a facility. Housing: Care Home Do you presently have visiting nurse or other home services: No Unable to assess alcohol history related to: Unable to respond Comment: pt is 1 to 1 pt observation Patient Tobacco Use Status: Tobacco use Unknown Advance Directives: No Advance Directives Information Provided: No service: No Sexual orientation: Straight/Heterosexual Meds Allergies Allergy/AdvReac Type Severity Reaction Status Date / Time No Known Allergies Allergy Verified 06/10/24 22:24 [No Known Allergies*] Active Medications: Current Medications Acetaminophen (Acetaminophen 325 Mg Tablet) 650 mg PO Q6H PRN PRN Reason: Pain, Mild (Pain Scale 1-3), fever or headache Al Hydroxide/Mg Hydroxide (Magnesium Hydrox/Alum Hydrox 30 Ml Oral.Susp) 30 ml PO Q6H PRN PRN Reason: Heartburn/Nausea Amlodipine Besylate (Amlodipine Besylate 2.5 Mg Tablet) 2.5 mg PO DAILY [facility]; Protocol Atorvastatin Calcium (Atorvastatin Calcium 80 Mg Tablet) 80 mg PO DAILY [facility] Benztropine Mesylate (Benztropine Mesylate 1 Mg Tablet) 1 mg PO BID PRN PRN Reason: EPS Bisacodyl (Bisacodyl 5 Mg Tablet.Dr) 10 mg PO BEDTIME [facility] Escitalopram Oxalate (Escitalopram Oxalate 20 Mg Tablet) 20 mg PO DAILY [facility] Haloperidol (Haloperidol 1 Mg Tablet) 2 mg PO BID@1500,2100 [facility] Haloperidol (Haloperidol 1 Mg Tablet) 2 mg PO BID PRN PRN Reason: agitation Levetiracetam (Keppra) 500 mg in 100 mls @ 400 mls/hr IV Q12H [facility] Last Infusion: 06/26/24 11:35 Dose: Infused Levetiracetam (Keppra) 500 mg in 100 mls @ 400 mls/hr IV ONCE ONE Stop: 06/26/24 14:49 Losartan Potassium (Losartan Potassium 25 Mg Tablet) 25 mg PO DAILY [facility]; Protocol Magnesium Hydroxide (Milk Of Magnesia 30 Ml Oral.Susp) 30 ml PO DAILY PRN PRN Reason: Constipation Melatonin (Melatonin 3 Mg Tablet) 6 mg PO BEDTIME [facility] Ondansetron HCl (Ondansetron Hcl 4 Mg/2 Ml Vial) 4 mg IVPUSH Q8H PRN PRN Reason: Nausea and Vomiting Polyethylene Glycol (Polyethylene Glycol 3350 17 Gm Powd.Pack) 17 gm PO DAILY [facility] Propranolol HCl (Propranolol Hcl 10 Mg Tablet) 10 mg PO TID [facility]; Protocol Rivaroxaban (Rivaroxaban 20 Mg Tablet) 20 mg PO DAILY@1700 [facility] Senna/Docusate Sodium (Sennosides/Docusate Sodium Tablet) 1 tab PO BID [facility] Sodium Chloride (0.9 % Sodium Chloride Flush 3 Ml Syringe) 3 ml IVFLUSH QSHIFT [facility] Trazodone HCl (Trazodone Hcl 50 Mg Tablet) 50 mg PO BEDTIME MRX1 PRN PRN Reason: Insomnia Trazodone HCl (Trazodone Hcl 100 Mg Tablet) 100 mg PO BEDTIME [facility] Physical Exam Vital Signs and Narrative: Vital Signs: Last Vital Signs Temp 98.2 F 06/26/24 12:00 Pulse 72 06/26/24 12:00 Resp 14 06/26/24 12:00 BP 98/58 L 06/26/24 12:00 Pulse Ox 90 L 06/26/24 12:00 O2 Del Method Room Air 06/26/24 12:00 Gen: confused, trying to get out of bed but re-directable, nonverbal which is his current baseline per family HEENT: sclera anicteric, moist mucus membranes Neck: supple Lungs: clear to auscultation bilaterally Heart: regular rate and rhythm, no murmurs Abd: soft, non-tender, non-distended Ext: no edema Skin: warm/well-perfused Neuro: alert, nonverbal, moving all extremities, uncooperative with rest of neurologic exam Psych: impaired insight Results Labs 06/26/24 11:46 06/26/24 11:46 Labs: Laboratory Results - last 24 hr 06/26/24 11:46 MCV 85.9 MCH 30.4 MCHC 35.4 RDW 11.8 Plt Count 150 L MPV 8.9 L Immature Gran % (Auto) 0.2 Neut % (Auto) 74.9 H Lymph % (Auto) 16.1 L Pettis % (Auto) 6.8 Eos % (Auto) 1.7 Baso % (Auto) 0.3 Lymph # (Auto) 1.0 L [place] # (Auto) 0.4 Eos # (Auto) 0.1 Baso # (Auto) 0.0 Abs Immat Gran (auto) 0.01 Absolute Neuts (auto) 4.5 Absolute Nucleated RBC 0.000 Nucleated RBC % (auto) 0.0 Anion Gap 11 L Estim Creat Clear Calc TNP Estimated GFR > 60 Random Glucose 128 H Lactic Acid 2.0 Calcium 8.9 Magnesium 2.3 Total Bilirubin 0.4 AST 19 ALT 21 Alkaline Phosphatase 88 C-Reactive Protein < 0.04 Total Protein 5.7 L Albumin 3.6 TSH 1.78 Assessment and Plan (1) Grand mal seizure: Status: Acute Plan 59yo M with FTD living at the [facility] since April, brought to the [facility] ED 06/10/24 for violent behavior, then admitted to [facility]iatry 06/15 for behavior management. STRAW HAT MACHINE OPERATOR called 06/26/24 for witnessed grand mal seizure. grand mal seizure - admit to telemetry, neuro checks, seizure precautions, Neuro consult [discussed by phone with Dr Hui: will load with Keppra 1gram then give 500mg bid; discontinue oxcarbazepine], EEG FTD with behavioral agitation - escitalopram, propranolol, trazodone, prn haloperidol hx mitral valve repair - Xarelto HTN - amlodipine, losartan, propranolol HLD - atorvastatin VTE prophylaxis - Xarelto dispo - TBD code status - DNR/DNI confirmed with family at bedside I anticipate that the patient will stay at least 2 midnights as an inpatient in the hospital due to the above reasons. It is neither reasonable nor safe to care for them in a less acute setting. Quality Stroke Does the patient have a stroke diagnosis?: No VTE Prior VTE?: No VTE Risk Level:: Medical - moderate - high VTE Device Contraindication: N/A - Device Ordered VTE Drug Contraindication: N/A - Med Ordered
[2024-06-26] MEDS: Haloperidol Lactate 5 MG/ML VIAL 2.5 MG IM ×2 (15:20→19:27)
[2024-06-26 15:31] VITALS: BP 154/68; PULSE 73; RESP 20; TEMP 37.3; O2SAT 91
[2024-06-26] MEDS: Melatonin 3 MG TABLET 6 MG PO (19:39)
[2024-06-26] MEDS: traZODone HCL 100 MG TABLET PO (19:39)
[2024-06-26 19:42] VITALS: BP 117/70; PULSE 73; RESP 18; TEMP 37.2; O2SAT 96
[2024-06-26] MEDS: Propranolol HCL 10 MG TABLET PO (19:48)
[2024-06-26] MEDS: HaloperidoL 1 MG TABLET 2 MG PO (22:26)
[2024-06-26] MEDS: bisacodyL 5 MG TABLET.DR 10 MG PO (22:27)
[2024-06-26] MEDS: Sennosides/Docusate Sodium TABLET 1 TAB PO (22:27)
[2024-06-27] MEDS: Haloperidol Lactate 5 MG/ML VIAL 2.5 MG IM ×3 (03:07→18:54)
[2024-06-27] MEDS: traZODone HCL 50 MG TABLET PO (03:08)
[2024-06-27 06:06] LABS: Appearance Urine Clear; Color Urine Yellow; Glucose Urine UA Negative (Negative); Leukocyte Esterase Urine Negative (Negative); Nitrite Urine Negative (Negative); PH >= 9.0 (5.0-9.0); Specific Gravity - Urine 1.015 (1.005-1.025); Urine Blood Negative (Negative); Urine Ketones Negative (Negative); Urine Protein Negative (Neg-Trace)
[2024-06-27 06:18] LABS: Bacteria Urine None Seen (None Seen); Calcium Oxalate Crystals Urine Present; Hyaline Casts Urine 0-2 /LPF (0-2); RBC Urine 0-2 /HPF (0-2); Squamous Epithelial Cell Urine 0-2 /HPF (0-2); WBC Urine 0-5 /HPF (0-5)
[2024-06-27 07:36] VITALS: BP 110/74; PULSE 72; RESP 20; TEMP 36.8; O2SAT 100
[2024-06-27] MEDS: Atorvastatin Calcium 80 MG TABLET PO (08:02)
[2024-06-27] MEDS: Losartan Potassium 25 MG TABLET PO (08:02)
[2024-06-27] MEDS: HaloperidoL 1 MG TABLET 2 MG PO ×3 (08:02→20:27)
[2024-06-27] MEDS: 0.9 % Sodium Chloride Flush 3 ML SYRINGE IVFLUSH ×2 (08:03→16:16)
[2024-06-27] MEDS: Propranolol HCL 10 MG TABLET PO ×3 (08:03→20:27)
[2024-06-27] MEDS: Escitalopram Oxalate 20 MG TABLET PO (08:03)
--- NOTE | 2024-06-27 10:13 | PM.NEUROCN ---
History of Present Illness Data of Consult Service Date: 06/27/24 Primary Care Provider: Unknown Physician HPI Reason for consult: Seizure 59 years old unfortunate man with young age Alzheimer dementia diagnosed when he was 51 years old has significantly progressed. He was living in a residential facility and was noted to be aggressive and agitated and was brought to psychiatric floor. He was not known to have any seizure disorder and while he was here he had a generalized seizure. Apparently mild staring type of spells have been noted recently and he was started on oxcarbazepine. Review of Systems Review of Systems: Could not provide any history PMFSH Past Medical History Medical History Hyperlipidemia HTN (hypertension) Frontotemporal dementia Surgical History Surgical History Mitral valve replaced Social History Social History Household Members: Spouse Household Members Other:: Pt lives at a facility. Housing: House Do you presently have visiting nurse or other home services: No Unable to assess alcohol history related to: Unable to respond Comment: patient has a sitter Patient Tobacco Use Status: Tobacco use Unknown Use of substances other than those prescribed or required for medical reasons: Unable to respond Currently Displaying Signs/Symptoms of Drug Intoxication Withdrawal: No Advance Directives: No Advance Directives Information Provided: No Do you have a plan to hurt others: No Plan Recently lost weight without trying: Unsure How much weight loss: Unsure Nutrition Risks: Poor intake 0-25% >4 days service: No Sexual orientation: Straight/Heterosexual Meds Allergies Allergy/AdvReac Type Severity Reaction Status Date / Time No Known Allergies Allergy Verified 06/10/24 22:24 [No Known Allergies*] Active Medications: Current Medications Acetaminophen (Acetaminophen 325 Mg Tablet) 650 mg PO Q6H PRN PRN Reason: Pain, Mild (Pain Scale 1-3), fever or headache Al Hydroxide/Mg Hydroxide (Magnesium Hydrox/Alum Hydrox 30 Ml Oral.Susp) 30 ml PO Q6H PRN PRN Reason: Heartburn/Nausea Amlodipine Besylate (Amlodipine Besylate 2.5 Mg Tablet) 2.5 mg PO DAILY [facility]; Protocol Last Admin: 06/27/24 08:03 Dose: Not Given Atorvastatin Calcium (Atorvastatin Calcium 80 Mg Tablet) 80 mg PO DAILY [facility] Last Admin: 06/27/24 08:02 Dose: 80 mg Benztropine Mesylate (Benztropine Mesylate 1 Mg Tablet) 1 mg PO BID PRN PRN Reason: EPS Bisacodyl (Bisacodyl 5 Mg Tablet.Dr) 10 mg PO BEDTIME [facility] Last Admin: 06/26/24 22:27 Dose: 10 mg Escitalopram Oxalate (Escitalopram Oxalate 20 Mg Tablet) 20 mg PO DAILY [facility] Last Admin: 06/27/24 08:03 Dose: 20 mg Haloperidol (Haloperidol 1 Mg Tablet) 2 mg PO BID@1500,2100 [facility] Last Admin: 06/26/24 22:26 Dose: 2 mg Haloperidol (Haloperidol 1 Mg Tablet) 2 mg PO BID PRN PRN Reason: agitation Last Admin: 06/27/24 08:02 Dose: 2 mg Haloperidol Lactate (Haloperidol Lactate 5 Mg/Ml Vial) 2.5 mg IM Q4H PRN PRN Reason: severe agitation Last Admin: 06/27/24 03:07 Dose: 2.5 mg Levetiracetam (Keppra) 500 mg in 100 mls @ 400 mls/hr IV Q12H [facility] Last Infusion: 06/27/24 00:09 Dose: Infused Losartan Potassium (Losartan Potassium 25 Mg Tablet) 25 mg PO DAILY [facility]; Protocol Last Admin: 06/27/24 08:02 Dose: 25 mg Magnesium Hydroxide (Milk Of Magnesia 30 Ml Oral.Susp) 30 ml PO DAILY PRN PRN Reason: Constipation Melatonin (Melatonin 3 Mg Tablet) 6 mg PO BEDTIME [facility] Last Admin: 06/26/24 19:39 Dose: 6 mg Ondansetron HCl (Ondansetron Hcl 4 Mg/2 Ml Vial) 4 mg IVPUSH Q8H PRN PRN Reason: Nausea and Vomiting Polyethylene Glycol (Polyethylene Glycol 3350 17 Gm Powd.Pack) 17 gm PO DAILY [facility] Last Admin: 06/27/24 08:04 Dose: Not Given Propranolol HCl (Propranolol Hcl 10 Mg Tablet) 10 mg PO TID [facility]; Protocol Last Admin: 06/27/24 08:03 Dose: 10 mg Rivaroxaban (Rivaroxaban 20 Mg Tablet) 20 mg PO DAILY@1700 [facility] Last Admin: 06/26/24 16:26 Dose: Not Given Senna/Docusate Sodium (Sennosides/Docusate Sodium Tablet) 1 tab PO BID [facility] Last Admin: 06/27/24 08:04 Dose: Not Given Sodium Chloride (0.9 % Sodium Chloride Flush 3 Ml Syringe) 3 ml IVFLUSH QSHIFT [facility] Last Admin: 06/27/24 08:03 Dose: 3 ml Trazodone HCl (Trazodone Hcl 50 Mg Tablet) 50 mg PO BEDTIME MRX1 PRN PRN Reason: Insomnia Last Admin: 06/27/24 03:08 Dose: 50 mg Trazodone HCl (Trazodone Hcl 100 Mg Tablet) 100 mg PO BEDTIME [facility] Last Admin: 06/26/24 19:39 Dose: 100 mg Physical Exam Vital Signs: Vital Signs: Last Vital Signs Temp 98.3 F 06/27/24 07:36 Pulse 72 06/27/24 07:36 Resp 20 06/27/24 07:36 BP 110/74 06/27/24 07:36 Pulse Ox 100 06/27/24 07:36 O2 Del Method Room Air 06/27/24 07:36 Neuro: Other: Drowsy and agitated trying to come out of bed not cooperative with examination. There was no obvious arm or leg weakness. He was keeping his eyes closed and not responding to verbal commands. Results Labs 06/26/24 11:46 06/26/24 11:46 Labs: Short CBC 06/26/24 Range/Units 11:46 WBC 6.0 (4.8-10.8) X10*3/uL Hgb 13.2 L (14.0-18.0) g/dl Hct 37.3 L (42.0-52.0) % Plt Count 150 L (160-400) X10*3/uL BMP 06/26/24 11:46 Sodium 139 Potassium 3.5 Chloride 105 Carbon Dioxide 27 BUN 21 H Creatinine 0.96 Calcium 8.9 Liver Function 06/26/24 Range/Units 11:46 Total Bilirubin 0.4 (0.0-1.0) mg/dL AST 19 (5-37) U/L ALT 21 (0-40) U/L Alkaline Phosphatase 88 (39-117) U/L Albumin 3.6 (3.5-5.0) g/dL Urine 06/26/24 Range/Units 22:00 Urine Color Yellow Urine Appearance Clear Urine pH >= 9.0 (5.0-9.0) Ur Specific [place] 1.015 (1.005-1.025) Urine Protein Negative (Neg-Trace) mg/dL Urine Glucose (UA) Negative (Negative) mg/dL Head CT is limited because of movement artifacts. Moderate to severe diffuse cerebral atrophy was noted. Assessment and Plan (1) Grand mal seizure: Status: Acute 59 years old man with young age onset degenerative probably Alzheimer dementia with agitation. He had his 1st generalized seizure. There was no obvious sign of infection or any other reason. After reviewing his overall situation with his children, who were on bedside, my recommendation is to discontinue oxcarbazepine and levetiracetam and start him on valproic acid or Depakote. I recommend loading him and then continuing with 500 mg twice a day. This can help with behavior and seizures. (2) Alzheimer dementia with agitation: Qualifiers: Alzheimer's disease onset: early onset Dementia severity: severe Qualified Code(s): G30.0 - Alzheimer's disease with early onset; F02.C11 - Dementia in other diseases classified elsewhere, severe, with agitation Status: Acute Procedures Date of Service Date of Service: 06/27/24
--- NOTE | 2024-06-27 11:03 | P.PNIM_ITS ---
Subjective Subjective Date of Service: 06/27/24 Interval History: no further seizures behavioral agitation requiring several doses of IM + PO Haldol nonverbal Review of Systems Review of Systems: Yes Unobtainable due to mental status Physical Exam 2 Vital Signs: Vital Signs: Last Vital Signs Temp 98.3 F 06/27/24 07:36 Pulse 72 06/27/24 07:36 Resp 20 06/27/24 07:36 BP 110/74 06/27/24 07:36 Pulse Ox 100 06/27/24 07:36 O2 Del Method Room Air 06/27/24 07:36 Gen: intermittently agitated but redirectable by family HEENT: sclera anicteric, moist mucus membranes Neck: supple Lungs: clear to auscultation bilaterally Heart: regular rate and rhythm, no murmurs Abd: soft, non-tender, non-distended Ext: no edema Skin: warm/well-perfused Neuro: alert, nonverbal, moving all extremities, uncooperative with rest of neurologic exam Psych: impaired insight Objective Data Active Medications Acetaminophen (Acetaminophen 325 Mg Tablet) 650 mg PO Q6H PRN PRN Reason: Pain, Mild (Pain Scale 1-3), fever or headache Al Hydroxide/Mg Hydroxide (Magnesium Hydrox/Alum Hydrox 30 Ml Oral.Susp) 30 ml PO Q6H PRN PRN Reason: Heartburn/Nausea Amlodipine Besylate (Amlodipine Besylate 2.5 Mg Tablet) 2.5 mg PO DAILY [facility]; Protocol Last Admin: 06/27/24 08:03 Dose: Not Given Documented By: ROSSY Non-Admin Reason: Physician Approved Atorvastatin Calcium (Atorvastatin Calcium 80 Mg Tablet) 80 mg PO DAILY [facility] Last Admin: 06/27/24 08:02 Dose: 80 mg Documented By: ROSSY Benztropine Mesylate (Benztropine Mesylate 1 Mg Tablet) 1 mg PO BID PRN PRN Reason: EPS Bisacodyl (Bisacodyl 5 Mg Tablet.) 10 mg PO BEDTIME [facility] Last Admin: 06/26/24 22:27 Dose: 10 mg Documented By: DONNA Escitalopram Oxalate (Escitalopram Oxalate 20 Mg Tablet) 20 mg PO DAILY [facility] Last Admin: 06/27/24 08:03 Dose: 20 mg Documented By: ROSSY Haloperidol (Haloperidol 1 Mg Tablet) 2 mg PO BID@1500,2100 [facility] Last Admin: 06/26/24 22:26 Dose: 2 mg Documented By: DONNA Haloperidol (Haloperidol 1 Mg Tablet) 2 mg PO BID PRN PRN Reason: agitation Last Admin: 06/27/24 08:02 Dose: 2 mg Documented By: ROSSY Haloperidol Lactate (Haloperidol Lactate 5 Mg/Ml Vial) 2.5 mg IM Q4H PRN PRN Reason: severe agitation Last Admin: 06/27/24 03:07 Dose: 2.5 mg Documented By: DONNA Levetiracetam (Keppra) 500 mg in 100 mls @ 400 mls/hr IV Q12H [facility] Last Infusion: 06/27/24 00:09 Dose: Infused Documented By: DONNA Losartan Potassium (Losartan Potassium 25 Mg Tablet) 25 mg PO DAILY [facility]; Protocol Last Admin: 06/27/24 08:02 Dose: 25 mg Documented By: ROSSY Magnesium Hydroxide (Milk Of Magnesia 30 Ml Oral.Susp) 30 ml PO DAILY PRN PRN Reason: Constipation Melatonin (Melatonin 3 Mg Tablet) 6 mg PO BEDTIME [facility] Last Admin: 06/26/24 19:39 Dose: 6 mg Documented By: ARIANA Ondansetron HCl (Ondansetron Hcl 4 Mg/2 Ml Vial) 4 mg IVPUSH Q8H PRN PRN Reason: Nausea and Vomiting Polyethylene Glycol (Polyethylene Glycol 3350 17 Gm Powd.Pack) 17 gm PO DAILY [facility] Last Admin: 06/27/24 08:04 Dose: Not Given Documented By: ROSSY Non-Admin Reason: had multiple stools Propranolol HCl (Propranolol Hcl 10 Mg Tablet) 10 mg PO TID [facility]; Protocol Last Admin: 06/27/24 08:03 Dose: 10 mg Documented By: ROSSY Rivaroxaban (Rivaroxaban 20 Mg Tablet) 20 mg PO DAILY@1700 [facility] Last Admin: 06/26/24 16:26 Dose: Not Given Documented By: ROSSY Non-Admin Reason: Patient Condition Contraindication Senna/Docusate Sodium (Sennosides/Docusate Sodium Tablet) 1 tab PO BID [facility] Last Admin: 06/27/24 08:04 Dose: Not Given Documented By: ROSSY Non-Admin Reason: had multiple stools Sodium Chloride (0.9 % Sodium Chloride Flush 3 Ml Syringe) 3 ml IVFLUSH QSHIFT [facility] Last Admin: 06/27/24 08:03 Dose: 3 ml Documented By: ROSSY Trazodone HCl (Trazodone Hcl 50 Mg Tablet) 50 mg PO BEDTIME MRX1 PRN PRN Reason: Insomnia Last Admin: 06/27/24 03:08 Dose: 50 mg Documented By: DONNA Trazodone HCl (Trazodone Hcl 100 Mg Tablet) 100 mg PO BEDTIME [facility] Last Admin: 06/26/24 19:39 Dose: 100 mg Documented By: ARIANA Labs 06/26/24 11:46 06/26/24 11:46 Labs: Laboratory Results - last 24 hr 06/26/24 06/26/24 11:46 22:00 MCV 85.9 MCH 30.4 MCHC 35.4 RDW 11.8 Plt Count 150 L MPV 8.9 L Immature Gran % (Auto) 0.2 Neut % (Auto) 74.9 H Lymph % (Auto) 16.1 L Posey % (Auto) 6.8 Eos % (Auto) 1.7 Baso % (Auto) 0.3 Lymph # (Auto) 1.0 L Posey # (Auto) 0.4 Eos # (Auto) 0.1 Baso # (Auto) 0.0 Abs Immat Gran (auto) 0.01 Absolute Neuts (auto) 4.5 Absolute Nucleated RBC 0.000 Nucleated RBC % (auto) 0.0 Anion Gap 11 L Estim Creat Clear Calc TNP Estimated GFR > 60 Random Glucose 128 H Lactic Acid 2.0 Calcium 8.9 Magnesium 2.3 Total Bilirubin 0.4 AST 19 ALT 21 Alkaline Phosphatase 88 C-Reactive Protein < 0.04 Total Protein 5.7 L Albumin 3.6 TSH 1.78 Urine Color Yellow Urine Appearance Clear Urine pH >= 9.0 Ur Specific [place] 1.015 Urine Protein Negative Urine Glucose (UA) Negative Urine Ketones Negative Urine Blood Negative Urine Nitrite Negative Ur Leukocyte Esterase Negative Urine RBC 0-2 Urine WBC 0-5 Ur Squamous Epith Cells 0-2 Calcium Oxalate Crystal Present Urine Bacteria None Seen Hyaline Casts 0-2 Assessment and Plan (1) Alzheimer dementia with agitation: Status: Acute (2) Grand mal seizure: Status: Acute Plan 59yo M with 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 FOCUSER called 06/26/24 for witnessed grand mal seizure. grand mal seizure and possible recent absence seizures - Neuro consulted, change Keppra to Depakote- will load and give IV; Trileptal stopped; EEG FTD/Alzheimer dementia with behavioral agitation - escitalopram, propranolol, trazodone, prn haloperidol hx mitral valve repair - Xarelto HTN - amlodipine, losartan, propranolol HLD - atorvastatin VTE prophylaxis - Xarelto dispo - eventual return to [place] vs. [facility] In my clinical judgment, the patient requires continued inpatient hospitalization for the following reasons: antiepileptic load, behavioral agitation Total time managing care of this patient today: 40 minutes. Quality Stroke Does the patient have a stroke diagnosis?: No VTE Prior VTE?: No VTE Risk Level:: Medical - moderate - high VTE Device Contraindication: N/A - Device Ordered VTE Drug Contraindication: N/A - Med Ordered
[2024-06-27 12:00] VITALS: BP 97/63; PULSE 73; RESP 20; TEMP 36.2; O2SAT 100
--- NOTE | 2024-06-27 13:30 | MHC.CM.PN ---
IMM 06/27. Pt was transferred from [place] inpatient unit to [facility] after having seizure activity. Pt with dx: advanced dementia. CM intake assessment completed with pts /HCP/POA Martha. Prior to being on the [place] unit, pt was living at the [facility]. HCP and POA on file and verified. DCP TBD, may return to inpatient psych unit vs return to the [facility]. PCP: was unsure who the PCP is
[2024-06-27 15:45] VITALS: BP 101/61; PULSE 64; RESP 16; TEMP 36.4; O2SAT 100
[2024-06-27] MEDS: Rivaroxaban 20 MG TABLET PO (16:11)
[2024-06-27] MEDS: Valproic Acid (as Sodium Salt) 1,000 MG in Dextrose 5 % 50 ML 60 MG IV (16:11)
[2024-06-27 20:00] VITALS: BP 107/68; PULSE 80; RESP 16; TEMP 36.1; O2SAT 95
[2024-06-27] MEDS: Melatonin 3 MG TABLET 6 MG PO (20:26)
[2024-06-27] MEDS: traZODone HCL 100 MG TABLET PO (20:26)
[2024-06-27] MEDS: Sennosides/Docusate Sodium TABLET 1 TAB PO (20:26)
[2024-06-27] MEDS: bisacodyL 5 MG TABLET.DR 10 MG PO (20:27)
[2024-06-27 23:58] VITALS: BP 100/59; PULSE 65; RESP 18; TEMP 36.1; O2SAT 97
[2024-06-28] MEDS: 0.9 % Sodium Chloride Flush 3 ML SYRINGE IVFLUSH ×2 (00:22→18:35)
[2024-06-28 02:59] VITALS: BP 103/67; PULSE 68; RESP 18; TEMP 36.9; O2SAT 97
[2024-06-28] MEDS: Valproic Acid (as Sodium Salt) 250 MG in Dextrose 5 % 50 ML 52.5 MG IV ×4 (03:08→19:53)
[2024-06-28] MEDS: Haloperidol Lactate 5 MG/ML VIAL 2.5 MG IM (03:35)
[2024-06-28 08:00] VITALS: BP 101/59; PULSE 71; RESP 20; TEMP 36.5; O2SAT 97
--- NOTE | 2024-06-28 10:22 | HO.PM.IMPN ---
Subjective Subjective Date of Service: 06/28/24 Interval History: no further seizures behavioral agitation requiring several doses of IM + PO Haldol nonverbal Review of Systems Review of Systems: Yes Unobtainable due to mental status Physical Exam Vital Signs: Vital Signs: Last Vital Signs Temp 97.7 F 06/28/24 08:00 Pulse 71 06/28/24 08:00 Resp 20 06/28/24 08:00 BP 101/59 L 06/28/24 08:00 Pulse Ox 97 06/28/24 08:00 O2 Del Method Room Air 06/28/24 08:00 Appearing in no acute distress lung sounds are clear to auscultation heart regular rate rhythm, clear S1, S2 positive bowel sounds, abdomen is soft, nontender neuro patient is sleeping, but usually nonverbal Objective Data Active Medications Acetaminophen (Acetaminophen 325 Mg Tablet) 650 mg PO Q6H PRN PRN Reason: Pain, Mild (Pain Scale 1-3), fever or headache Al Hydroxide/Mg Hydroxide (Magnesium Hydrox/Alum Hydrox 30 Ml Oral.Susp) 30 ml PO Q6H PRN PRN Reason: Heartburn/Nausea Amlodipine Besylate (Amlodipine Besylate 2.5 Mg Tablet) 2.5 mg PO DAILY [facility]; Protocol Last Admin: 06/27/24 08:03 Dose: Not Given Documented By: ROSSY Non-Admin Reason: Physician Approved Atorvastatin Calcium (Atorvastatin Calcium 80 Mg Tablet) 80 mg PO DAILY [facility] Last Admin: 06/27/24 08:02 Dose: 80 mg Documented By: ROSSY Benztropine Mesylate (Benztropine Mesylate 1 Mg Tablet) 1 mg PO BID PRN PRN Reason: EPS Bisacodyl (Bisacodyl 5 Mg Tablet.) 10 mg PO BEDTIME [facility] Last Admin: 06/27/24 20:27 Dose: 10 mg Documented By: JUAN Escitalopram Oxalate (Escitalopram Oxalate 20 Mg Tablet) 20 mg PO DAILY [facility] Last Admin: 06/27/24 08:03 Dose: 20 mg Documented By: ROSSY Haloperidol (Haloperidol 1 Mg Tablet) 2 mg PO BID@1500,2100 [facility] Last Admin: 06/27/24 20:27 Dose: 2 mg Documented By: JUAN Haloperidol (Haloperidol 1 Mg Tablet) 2 mg PO BID PRN PRN Reason: agitation Last Admin: 06/27/24 08:02 Dose: 2 mg Documented By: ROSSY Haloperidol Lactate (Haloperidol Lactate 5 Mg/Ml Vial) 2.5 mg IM Q4H PRN PRN Reason: severe agitation Last Admin: 06/28/24 03:35 Dose: 2.5 mg Documented By: JUAN Valproic Acid 250 mg/ Dextrose 52.5 mls @ 52.5 mls/hr IV Q6H [facility] Last Infusion: 06/28/24 05:15 Dose: Infused Documented By: JUAN Losartan Potassium (Losartan Potassium 25 Mg Tablet) 25 mg PO DAILY [facility]; Protocol Last Admin: 06/27/24 08:02 Dose: 25 mg Documented By: ROSSY Magnesium Hydroxide (Milk Of Magnesia 30 Ml Oral.Susp) 30 ml PO DAILY PRN PRN Reason: Constipation Melatonin (Melatonin 3 Mg Tablet) 6 mg PO BEDTIME [facility] Last Admin: 06/27/24 20:26 Dose: 6 mg Documented By: JUAN Ondansetron HCl (Ondansetron Hcl 4 Mg/2 Ml Vial) 4 mg IVPUSH Q8H PRN PRN Reason: Nausea and Vomiting Polyethylene Glycol (Polyethylene Glycol 3350 17 Gm Powd.Pack) 17 gm PO DAILY [facility] Last Admin: 06/27/24 08:04 Dose: Not Given Documented By: ROSSY Non-Admin Reason: had multiple stools Propranolol HCl (Propranolol Hcl 10 Mg Tablet) 10 mg PO TID [facility]; Protocol Last Admin: 06/27/24 20:27 Dose: 10 mg Documented By: JUAN Rivaroxaban (Rivaroxaban 20 Mg Tablet) 20 mg PO DAILY@1700 [facility] Last Admin: 06/27/24 16:11 Dose: 20 mg Documented By: ROSSY Senna/Docusate Sodium (Sennosides/Docusate Sodium Tablet) 1 tab PO BID [facility] Last Admin: 06/27/24 20:26 Dose: 1 tab Documented By: JUAN Sodium Chloride (0.9 % Sodium Chloride Flush 3 Ml Syringe) 3 ml IVFLUSH QSHIFT [facility] Last Admin: 06/28/24 00:22 Dose: 3 ml Documented By: JUAN Trazodone HCl (Trazodone Hcl 50 Mg Tablet) 50 mg PO BEDTIME MRX1 PRN PRN Reason: Insomnia Last Admin: 06/27/24 03:08 Dose: 50 mg Documented By: DONNA Trazodone HCl (Trazodone Hcl 100 Mg Tablet) 100 mg PO BEDTIME [facility] Last Admin: 06/27/24 20:26 Dose: 100 mg Documented By: JUAN Naidu 06/26/24 11:46 06/26/24 11:46 Assessment and Plan (1) Alzheimer dementia with agitation: Status: Acute (2) Grand mal seizure: Status: Acute Plan 59yo M with 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 MARINE DIVER called 06/26/24 for witnessed grand mal seizure. Grand mal seizure and possible recent absence seizures Neuro following continue to load depakote with IV then transition to po EEG FTD/Alzheimer dementia with behavioral agitation escitalopram, propranolol, trazodone, prn haloperidol hx mitral valve repair Xarelto HTN amlodipine, losartan, propranolol HLD atorvastatin VTE prophylaxis Xarelto Attending Dr. Arguello dispo eventual return to [place] vs. [facility] In my clinical judgment, the patient requires continued inpatient hospitalization for the following reasons: antiepileptic load, behavioral agitation Total time managing care of this patient today: 40 minutes. Quality Stroke Does the patient have a stroke diagnosis?: No VTE Prior VTE?: No VTE Risk Level:: Medical - moderate - high VTE Device Contraindication: N/A - Device Ordered VTE Drug Contraindication: N/A - Med Ordered
[2024-06-28] MEDS: Losartan Potassium 25 MG TABLET PO (10:36)
[2024-06-28] MEDS: Atorvastatin Calcium 80 MG TABLET PO (10:36)
[2024-06-28] MEDS: Propranolol HCL 10 MG TABLET PO ×3 (10:36→19:54)
[2024-06-28] MEDS: Escitalopram Oxalate 20 MG TABLET PO (10:36)
[2024-06-28 12:00] VITALS: BP 102/70; PULSE 60; RESP 20; TEMP 36.3; O2SAT 98
[2024-06-28 16:00] VITALS: BP 106/58; PULSE 61; RESP 18
[2024-06-28] MEDS: HaloperidoL 1 MG TABLET 2 MG PO ×2 (16:10→19:54)
[2024-06-28] MEDS: Rivaroxaban 20 MG TABLET PO (16:10)
[2024-06-28 19:54] VITALS: BP 102/64; PULSE 66
[2024-06-28] MEDS: traZODone HCL 100 MG TABLET PO (19:54)
[2024-06-28] MEDS: Melatonin 3 MG TABLET 6 MG PO (19:54)
[2024-06-28 19:56] VITALS: BP 102/64; PULSE 67; RESP 20; TEMP 36.9; O2SAT 95
[2024-06-29] VITALS: BP 94/60; PULSE 57; RESP 16; TEMP 36.8; O2SAT 98
--- NOTE | 2024-06-29 | EEG_ITS ---
FINDINGS: Waking background activity consists of low-voltage fast frequencies seen diffusely intermixed with muscle artifact anteriorly. Drowsiness is characterized by diffuse theta slowing. Photic stimulation and hyperventilation are omitted. No focal, lateralizing, or paroxysmal discharges are seen. IMPRESSION: This awake and drowsy EEG is considered within normal limits. MD CARRIE Yip/CAL / [id number]
[2024-06-29] MEDS: 0.9 % Sodium Chloride Flush 3 ML SYRINGE IVFLUSH ×3 (00:37→17:06)
[2024-06-29] MEDS: Valproic Acid (as Sodium Salt) 250 MG in Dextrose 5 % 50 ML 52.5 MG IV ×2 (02:39→08:53)
[2024-06-29 04:00] VITALS: BP 91/57; PULSE 58; RESP 16; TEMP 36.1; O2SAT 99
[2024-06-29 07:20] VITALS: BP 96/58; PULSE 57; RESP 18; TEMP 36.6; O2SAT 96
--- NOTE | 2024-06-29 08:11 | HO.PM.IMPN ---
Subjective Subjective Date of Service: 06/29/24 Interval History: no further seizures resting in bed nonverbal Review of Systems Review of Systems: Yes Unobtainable due to mental status Physical Exam Vital Signs: Vital Signs: Last Vital Signs Temp 97.8 F 06/29/24 07:20 Pulse 57 06/29/24 07:20 Resp 18 06/29/24 07:20 BP 96/58 L 06/29/24 07:20 Pulse Ox 96 06/29/24 07:20 O2 Del Method Room Air 06/29/24 07:20 Appearing in no acute distress lung sounds are clear to auscultation heart regular rate rhythm, clear S1, S2 positive bowel sounds, abdomen is soft, nontender neuro patient is alert, mostly nonverbal Objective Data Active Medications Acetaminophen (Acetaminophen 325 Mg Tablet) 650 mg PO Q6H PRN PRN Reason: Pain, Mild (Pain Scale 1-3), fever or headache Al Hydroxide/Mg Hydroxide (Magnesium Hydrox/Alum Hydrox 30 Ml Oral.Susp) 30 ml PO Q6H PRN PRN Reason: Heartburn/Nausea Amlodipine Besylate (Amlodipine Besylate 2.5 Mg Tablet) 2.5 mg PO DAILY [facility]; Protocol Last Admin: 06/27/24 08:03 Dose: Not Given Documented By: ROSSY Non-Admin Reason: Physician Approved Atorvastatin Calcium (Atorvastatin Calcium 80 Mg Tablet) 80 mg PO DAILY [facility] Last Admin: 06/28/24 10:36 Dose: 80 mg Documented By: ERIC Benztropine Mesylate (Benztropine Mesylate 1 Mg Tablet) 1 mg PO BID PRN PRN Reason: EPS Bisacodyl (Bisacodyl 5 Mg Tablet.) 10 mg PO BEDTIME [facility] Last Admin: 06/28/24 20:26 Dose: Not Given Documented By: JUAN Non-Admin Reason: loose stools Escitalopram Oxalate (Escitalopram Oxalate 20 Mg Tablet) 20 mg PO DAILY [facility] Last Admin: 06/28/24 10:36 Dose: 20 mg Documented By: ERIC Haloperidol (Haloperidol 1 Mg Tablet) 2 mg PO BID@1500,2100 [facility] Last Admin: 06/28/24 19:54 Dose: 2 mg Documented By: JUAN Haloperidol (Haloperidol 1 Mg Tablet) 2 mg PO BID PRN PRN Reason: agitation Last Admin: 06/27/24 08:02 Dose: 2 mg Documented By: ROSSY Haloperidol Lactate (Haloperidol Lactate 5 Mg/Ml Vial) 2.5 mg IM Q4H PRN PRN Reason: severe agitation Last Admin: 06/28/24 03:35 Dose: 2.5 mg Documented By: JUAN Valproic Acid 250 mg/ Dextrose 52.5 mls @ 52.5 mls/hr IV Q6H [facility] Last Infusion: 06/29/24 04:30 Dose: Infused Documented By: JUAN Losartan Potassium (Losartan Potassium 25 Mg Tablet) 25 mg PO DAILY [facility]; Protocol Last Admin: 06/28/24 10:36 Dose: 25 mg Documented By: ERIC Magnesium Hydroxide (Milk Of Magnesia 30 Ml Oral.Susp) 30 ml PO DAILY PRN PRN Reason: Constipation Melatonin (Melatonin 3 Mg Tablet) 6 mg PO BEDTIME [facility] Last Admin: 06/28/24 19:54 Dose: 6 mg Documented By: JUAN Ondansetron HCl (Ondansetron Hcl 4 Mg/2 Ml Vial) 4 mg IVPUSH Q8H PRN PRN Reason: Nausea and Vomiting Polyethylene Glycol (Polyethylene Glycol 3350 17 Gm Powd.Pack) 17 gm PO DAILY [facility] Last Admin: 06/28/24 10:37 Dose: Not Given Documented By: ERIC Non-Admin Reason: Loose stools Propranolol HCl (Propranolol Hcl 10 Mg Tablet) 10 mg PO TID [facility]; Protocol Last Admin: 06/28/24 19:54 Dose: 10 mg Documented By: JUAN Rivaroxaban (Rivaroxaban 20 Mg Tablet) 20 mg PO DAILY@1700 [facility] Last Admin: 06/28/24 16:10 Dose: 20 mg Documented By: DILMA Senna/Docusate Sodium (Sennosides/Docusate Sodium Tablet) 1 tab PO BID [facility] Last Admin: 06/28/24 20:26 Dose: Not Given Documented By: JUAN Non-Admin Reason: loose stools Sodium Chloride (0.9 % Sodium Chloride Flush 3 Ml Syringe) 3 ml IVFLUSH QSHIFT [facility] Last Admin: 06/29/24 00:37 Dose: 3 ml Documented By: JUAN Trazodone HCl (Trazodone Hcl 50 Mg Tablet) 50 mg PO BEDTIME MRX1 PRN PRN Reason: Insomnia Last Admin: 06/27/24 03:08 Dose: 50 mg Documented By: DONNA Trazodone HCl (Trazodone Hcl 100 Mg Tablet) 100 mg PO BEDTIME [facility] Last Admin: 06/28/24 19:54 Dose: 100 mg Documented By: JUAN Naidu 06/26/24 11:46 06/26/24 11:46 Assessment and Plan (1) Alzheimer dementia with agitation: Status: Acute (2) Grand mal seizure: Status: Acute Plan 59yo M with 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 MATERIAL FLOW ANALYST called 06/26/24 for witnessed grand mal seizure. Grand mal seizure and possible recent absence seizures Neuro following s/p depakote load with IV,now on depakote 500mg BID po EEG FTD/Alzheimer dementia with behavioral agitation escitalopram, propranolol, trazodone, prn haloperidol care team consultation pending hx mitral valve repair Xarelto HTN amlodipine, losartan, propranolol HLD atorvastatin VTE prophylaxis Xarelto Attending Dr. Arguello dispo eventual return to [place] vs. [facility] In my clinical judgment, the patient requires continued inpatient hospitalization for the following reasons: antiepileptic load, behavioral agitation Total time managing care of this patient today: 40 minutes. Quality Stroke Does the patient have a stroke diagnosis?: No VTE Prior VTE?: No VTE Risk Level:: Medical - moderate - high VTE Device Contraindication: N/A - Device Ordered VTE Drug Contraindication: N/A - Med Ordered
[2024-06-29] MEDS: Escitalopram Oxalate 20 MG TABLET PO (08:41)
[2024-06-29] MEDS: Losartan Potassium 25 MG TABLET PO (08:41)
[2024-06-29] MEDS: Atorvastatin Calcium 80 MG TABLET PO (08:42)
[2024-06-29] MEDS: Propranolol HCL 10 MG TABLET PO ×3 (08:42→21:11)
[2024-06-29 09:46] LABS: Valproate 57.8 mcg/mL (50.0-100.0)
[2024-06-29 11:09] VITALS: BP 94/52; PULSE 62; RESP 18; TEMP 36.4; O2SAT 96
--- NOTE | 2024-06-29 11:34 | MHC.CM.PN ---
Patient with dementia from the [facility] was transfered [facility] [place] [place] for INEZ chahal. Per MD the plan is to infuse a loading dose of Depakote. The Careteam will be consulted once the patient is medically cleared. Dispo to be determined by the careteam, [facility] vs return to [facility] via [facility].
[2024-06-29] MEDS: HaloperidoL 1 MG TABLET 2 MG PO ×4 (12:51→21:08)
[2024-06-29 15:45] VITALS: BP 97/56; PULSE 68; RESP 19; O2SAT 96
[2024-06-29] MEDS: Rivaroxaban 20 MG TABLET PO (17:05)
[2024-06-29 20:00] VITALS: BP 110/70; PULSE 84; RESP 20; TEMP 36.9; O2SAT 93
[2024-06-29] MEDS: traZODone HCL 100 MG TABLET PO (21:07)
[2024-06-29] MEDS: Melatonin 3 MG TABLET 6 MG PO (21:07)
[2024-06-29] MEDS: Divalproex Sodium 500 MG TABLET.DR PO (21:10)
[2024-06-30] VITALS: BP 95/60; PULSE 63; RESP 16; TEMP 36.6; O2SAT 96
[2024-06-30 03:25] VITALS: BP 100/65; PULSE 58; RESP 16; TEMP 37.1; O2SAT 98
[2024-06-30] MEDS: HaloperidoL 1 MG TABLET 2 MG PO ×4 (03:41→21:03)
--- NOTE | 2024-06-30 07:19 | PM.DS ---
DS: Providers Provider Date of Service: 06/30/24 Date of admission: 06/26/24 10:55 Primary care physician: Unknown Physician Consults: 06/26/24 10:48 Consult to Neurology Routine Consulting Provider: [facility] Reason for consultation: new-onset grand mal seizure 06/26/24 11:11 Consult for Sitter Routine Reason for consultation: agitation 06/29/24 13:13 Consult to Care Team Routine Comment: Reason for consultation: medically clear DS: Diagnosis Discharge Diagnosis (1) Alzheimer dementia with agitation: Status: Acute (2) Grand mal seizure: Status: Acute DS: Summary Hospital Course Hospital Course: History and physical as per admitting provider. Mr. Mendez is a 59 year-old male with hx of frontotemporal dementia who was brought to the [facility] ED on 06/10/24 from the [facility], where he's lived since April, due to combative behaviors that were threatening to the staff. In the ED, he was given IM Zyprexa and Versed due to agitation and violent behavior. The ED physician called the patient's neuropsychiatric aide Deyanira Schilling, who was concerned the patient was experiencing absence seizures that then triggered aggressive behavior. She recommended oxcarbazepine 150 mg daily to increase to 250 mg bid. She also recommended Ativan over antipsychotics due to history of ADD. He was admitted to the geriatric psychiatry service 06/15/24 for behavioral stabilization. Review of course on that unit per RENTAL SALES REPRESENTATIVE Fabiola Velez: 06/19- change meds to liquid see if more able to be consistent- my guess is that intermittent spitting out meds maybe why he struggled partly on transition to [facility]. 06/20- change haldol to olanzapine zydis- for a day to see if that is more helpful - 06/21 d/c olanzapine, he had this medication last week with more confusion and sedation. Will add propanolol 5mg po TID- some degree of akathisia and restless which could be related to progression of frontotemporal. restart haldol 2mg po BID, prn doses. no EPS on exam. 06/22 continue current medications 06/23 propanolol increased to 10mg po TID 06/24 continue tx. diet upgraded to regular consistency with continued thin liquids and direct supervision. 06/25 dulcolax for constipation. monitor constipation, no BM since 06/20. may need water tap enema. REPAIRER ENGINE PRODUCTION called this AM for witnessed generalized/tonic-clonic seizure lasting approx 2-3 min after which the patient was observed to be postictal; snoring respirations but protecting his airway with gag reflex. He was lowered by staff to the ground and did not hit his head. BP 105/56, RR 16, P 92, SaO2 94 on RA. Blood glucose 124. Nasal trumpet placed. Pt sent to CT scan then to telemetry unit. Current pt is confused and intermittently trying to get out of bed, which is his current baseline per his and sons. He does not have a history of seizure disorder. No fever. Otherwise unable to obtain ROS. Grand mal seizure and possible recent absence seizures Neuro following s/p depakote load with IV,now on depakote 500mg BID po EEG FTD/Alzheimer dementia with behavioral agitation escitalopram, propranolol, trazodone, prn haloperidol care team consultation pending hx mitral valve repair Xarelto HTN amlodipine, losartan, propranolol HLD atorvastatin Physical Exam Vital Signs: Vital Signs: Last Vital Signs Temp 98.7 F 06/30/24 03:25 Pulse 58 06/30/24 03:25 Resp 16 06/30/24 03:25 BP 100/65 06/30/24 03:25 Pulse Ox 98 06/30/24 03:25 O2 Del Method Room Air 06/30/24 03:25 Appearing in no acute distress head is normocephalic atraumatic eyes pupils are PERRLA sclera is anicteric mouth throat mucous membranes are intact and moist neck is supple no lymphadenopathy, no JVD noted lung sounds are clear to auscultation heart regular rate rhythm, clear S1, S2 positive bowel sounds, abdomen is soft, nontender neuro patient is alert, mostlty nonverbal DS: Data Data Completed and Pending Labs on day of discharge: Laboratory Results - last 24 hr 06/29/24 09:01 Valproic Acid 57.8 Discharge Plan Discharge Patient Disposition: Xfer Psychiatric Hosp Discharge Diagnosis: Grand mall seizure Discharge Medications: New divalproex 500 mg Tablet,Delayed Release (Dr/Ec) 500 mg PO BID Qty: 60 0RF Continued Xarelto 20 mg Tablet 20 mg PO DAILY@1700 Qty: 0 0RF atorvastatin 80 mg Tablet 80 mg PO DAILY Qty: 0 0RF acetaminophen 325 mg Tablet 650 mg PO Q6H PRN (Reason: Headache/Pain Mild Scale (1-3)) Qty: 0 0RF amlodipine 2.5 mg Tablet 2.5 mg PO DAILY Qty: 0 0RF Protocol: Hold for SBP< HOLD for SBP < : 90 losartan 25 mg Tablet 25 mg PO DAILY Qty: 0 0RF Protocol: Hold for SBP< HOLD for SBP < : 90 trazodone 50 mg Tablet 50 mg PO BEDTIME MRX1 PRN (Reason: Insomnia) Qty: 0 0RF haloperidol 1 mg Tablet 2 mg PO BID@1500,2100 Qty: 0 0RF oxcarbazepine 300 mg Tablet 300 mg PO BID Qty: 0 0RF trazodone 100 mg Tablet 100 mg PO BEDTIME Qty: 0 0RF benztropine 1 mg Tablet 1 mg PO BID PRN (Reason: EPS) Qty: 0 0RF bisacodyl 5 mg Tablet,Delayed Release (Dr/Ec) 10 mg PO BEDTIME Qty: 0 0RF escitalopram oxalate 20 mg Tablet 20 mg PO DAILY Qty: 0 0RF MAG-AL 200-200 mg/5 mL Suspension 30 ml PO Q6H PRN (Reason: Heartburn/Nausea) Qty: 0 0RF magnesium hydroxide [Milk of Magnesia] 400 mg/5 mL Suspension 30 ml PO DAILY PRN (Reason: Constipation) Qty: 0 0RF polyethylene glycol 3350 17 gram Powder In Packet 17 g PO DAILY Qty: 0 0RF sennosides-docusate sodium [Senna Plus] 8.6-50 mg Tablet 1 tab PO BID Qty: 0 0RF melatonin 3 mg Tablet 6 mg PO BEDTIME Qty: 0 0RF haloperidol 1 mg Tablet 2 mg PO BID PRN (Reason: agitation) Qty: 0 0RF propranolol 10 mg Tablet 10 mg PO TID Qty: 0 0RF Protocol: Hold for SBP/HR < HOLD for SBP < : 90 HOLD for HR < : 60 Diet: Advance to usual diet Activity on Discharge: As tolerated Stand Alone Forms: Patient Portal Discharge page Print Language: Northern Irish Care Plan Goals: Transfer to psychiatric care for continued mental health treatment Health Concerns: Grand mall seizure Plan of Treatment: Follow-up with primary care provider as needed Take all medications as prescribed Assessment: See discharge summary
--- NOTE | 2024-06-30 07:23 | P.PNIM_ITS ---
Subjective Subjective Date of Service: 06/30/24 Interval History: no further seizures resting in bed nonverbal Review of Systems Review of Systems: Yes Unobtainable due to mental status Physical Exam 2 Vital Signs: Vital Signs: Last Vital Signs Temp 98.7 F 06/30/24 03:25 Pulse 58 06/30/24 03:25 Resp 16 06/30/24 03:25 BP 100/65 06/30/24 03:25 Pulse Ox 98 06/30/24 03:25 O2 Del Method Room Air 06/30/24 03:25 Appearing in no acute distress lung sounds are clear to auscultation heart regular rate rhythm, clear S1, S2 positive bowel sounds, abdomen is soft, nontender neuro patient is alert, mostly nonverbal Objective Data Active Medications Acetaminophen (Acetaminophen 325 Mg Tablet) 650 mg PO Q6H PRN PRN Reason: Pain, Mild (Pain Scale 1-3), fever or headache Al Hydroxide/Mg Hydroxide (Magnesium Hydrox/Alum Hydrox 30 Ml Oral.Susp) 30 ml PO Q6H PRN PRN Reason: Heartburn/Nausea Amlodipine Besylate (Amlodipine Besylate 2.5 Mg Tablet) 2.5 mg PO DAILY [facility]; Protocol Last Admin: 06/27/24 08:03 Dose: Not Given Documented By: ROSSY Non-Admin Reason: Physician Approved Atorvastatin Calcium (Atorvastatin Calcium 80 Mg Tablet) 80 mg PO DAILY [facility] Last Admin: 06/29/24 08:42 Dose: 80 mg Documented By: DILMA Benztropine Mesylate (Benztropine Mesylate 1 Mg Tablet) 1 mg PO BID PRN PRN Reason: EPS Bisacodyl (Bisacodyl 5 Mg Tablet.) 10 mg PO BEDTIME [facility] Last Admin: 06/29/24 21:00 Dose: Not Given Documented By: GATITO Non-Admin Reason: Patient Refused Divalproex Sodium (Divalproex Sodium 500 Mg Tablet.) 500 mg PO BID [facility] Last Admin: 06/29/24 21:10 Dose: 500 mg Documented By: GATITO Escitalopram Oxalate (Escitalopram Oxalate 20 Mg Tablet) 20 mg PO DAILY [facility] Last Admin: 06/29/24 08:41 Dose: 20 mg Documented By: DILMA Haloperidol (Haloperidol 1 Mg Tablet) 2 mg PO BID@1500,2100 [facility] Last Admin: 06/29/24 21:08 Dose: 2 mg Documented By: GATITO Haloperidol (Haloperidol 1 Mg Tablet) 2 mg PO BID PRN PRN Reason: agitation Last Admin: 06/30/24 03:41 Dose: 2 mg Documented By: GATITO Haloperidol Lactate (Haloperidol Lactate 5 Mg/Ml Vial) 2.5 mg IM Q4H PRN PRN Reason: severe agitation Last Admin: 06/28/24 03:35 Dose: 2.5 mg Documented By: JUAN Losartan Potassium (Losartan Potassium 25 Mg Tablet) 25 mg PO DAILY [facility]; Protocol Last Admin: 06/29/24 08:41 Dose: 25 mg Documented By: DILMA Magnesium Hydroxide (Milk Of Magnesia 30 Ml Oral.Susp) 30 ml PO DAILY PRN PRN Reason: Constipation Melatonin (Melatonin 3 Mg Tablet) 6 mg PO BEDTIME [facility] Last Admin: 06/29/24 21:07 Dose: 6 mg Documented By: GATITO Ondansetron HCl (Ondansetron Hcl 4 Mg/2 Ml Vial) 4 mg IVPUSH Q8H PRN PRN Reason: Nausea and Vomiting Polyethylene Glycol (Polyethylene Glycol 3350 17 Gm Powd.Pack) 17 gm PO DAILY [facility] Last Admin: 06/29/24 09:20 Dose: Not Given Documented By: DILMA Non-Admin Reason: Patient Refused Propranolol HCl (Propranolol Hcl 10 Mg Tablet) 10 mg PO TID [facility]; Protocol Last Admin: 06/29/24 21:11 Dose: 10 mg Documented By: GATITO Rivaroxaban (Rivaroxaban 20 Mg Tablet) 20 mg PO DAILY@1700 [facility] Last Admin: 06/29/24 17:05 Dose: 20 mg Documented By: DILMA Senna/Docusate Sodium (Sennosides/Docusate Sodium Tablet) 1 tab PO BID [facility] Last Admin: 06/29/24 21:00 Dose: Not Given Documented By: GATITO Non-Admin Reason: Patient Condition Contraindication Sodium Chloride (0.9 % Sodium Chloride Flush 3 Ml Syringe) 3 ml IVFLUSH QSHIFT [facility] Last Admin: 06/30/24 00:00 Dose: 3 ml Documented By: GATITO Trazodone HCl (Trazodone Hcl 50 Mg Tablet) 50 mg PO BEDTIME MRX1 PRN PRN Reason: Insomnia Last Admin: 06/27/24 03:08 Dose: 50 mg Documented By: DONNA Trazodone HCl (Trazodone Hcl 100 Mg Tablet) 100 mg PO BEDTIME [facility] Last Admin: 06/29/24 21:07 Dose: 100 mg Documented By: GATITO Labs 06/26/24 11:46 06/26/24 11:46 Labs: Laboratory Results - last 24 hr 06/29/24 09:01 Valproic Acid 57.8 Assessment and Plan (1) Alzheimer dementia with agitation: Status: Acute (2) Grand mal seizure: Status: Acute Plan 59yo M with 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 PICKLING GRADER called 06/26/24 for witnessed grand mal seizure. Grand mal seizure and possible recent absence seizures Neuro following s/p depakote load with IV, now on depakote 500mg BID po no further seizure activity EEG results pending FTD/Alzheimer dementia with behavioral agitation escitalopram, propranolol, trazodone, prn haloperidol care team>rec return to psych hx mitral valve repair Xarelto HTN amlodipine, losartan, propranolol HLD atorvastatin VTE prophylaxis Xarelto Attending Dr. Arguello dispo return to [place] when bed available In my clinical judgment, the patient requires continued inpatient hospitalization for the following reasons: antiepileptic load, behavioral agitation Total time managing care of this patient today: 40 minutes. Quality Stroke Does the patient have a stroke diagnosis?: No VTE Prior VTE?: No VTE Risk Level:: Medical - moderate - high VTE Device Contraindication: N/A - Device Ordered VTE Drug Contraindication: N/A - Med Ordered
[2024-06-30 08:00] VITALS: BP 116/81; PULSE 65; RESP 18; TEMP 36.3; O2SAT 98
[2024-06-30] MEDS: Sennosides/Docusate Sodium TABLET 1 TAB PO ×2 (09:50→21:15)
[2024-06-30] MEDS: Divalproex Sodium Sprinkles 125 MG CAP.DR.SPR 500 MG PO ×2 (09:50→21:03)
[2024-06-30] MEDS: Losartan Potassium 25 MG TABLET PO (09:50)
[2024-06-30] MEDS: Propranolol HCL 10 MG TABLET PO ×3 (09:50→21:04)
[2024-06-30] MEDS: Escitalopram Oxalate 20 MG TABLET PO (09:50)
[2024-06-30] MEDS: polyethylene glycoL 3350 17 GM POWD.PACK PO (09:50)
[2024-06-30] MEDS: Atorvastatin Calcium 80 MG TABLET PO (09:50)
--- NOTE | 2024-06-30 09:56 | HO.PM.IMPN ---
Subjective Subjective Date of Service: 06/30/24 Interval History: no further seizures resting in bed nonverbal Review of Systems Review of Systems: Yes Unobtainable due to mental status Physical Exam Vital Signs: Vital Signs: Last Vital Signs Temp 97.4 F 06/30/24 08:00 Pulse 65 06/30/24 08:00 Resp 18 06/30/24 08:00 BP 116/81 06/30/24 08:00 Pulse Ox 98 06/30/24 08:00 O2 Del Method Room Air 06/30/24 08:00 Appearing in no acute distress lung sounds are clear to auscultation heart regular rate rhythm, clear S1, S2 positive bowel sounds, abdomen is soft, nontender neuro patient is alert, nonverbal Objective Data Active Medications Acetaminophen (Acetaminophen 325 Mg Tablet) 650 mg PO Q6H PRN PRN Reason: Pain, Mild (Pain Scale 1-3), fever or headache Al Hydroxide/Mg Hydroxide (Magnesium Hydrox/Alum Hydrox 30 Ml Oral.Susp) 30 ml PO Q6H PRN PRN Reason: Heartburn/Nausea Amlodipine Besylate (Amlodipine Besylate 2.5 Mg Tablet) 2.5 mg PO DAILY [facility]; Protocol Last Admin: 06/27/24 08:03 Dose: Not Given Documented By: ROSSY Non-Admin Reason: Physician Approved Atorvastatin Calcium (Atorvastatin Calcium 80 Mg Tablet) 80 mg PO DAILY [facility] Last Admin: 06/29/24 08:42 Dose: 80 mg Documented By: DILMA Benztropine Mesylate (Benztropine Mesylate 1 Mg Tablet) 1 mg PO BID PRN PRN Reason: EPS Bisacodyl (Bisacodyl 5 Mg Tablet.) 10 mg PO BEDTIME [facility] Last Admin: 06/29/24 21:00 Dose: Not Given Documented By: GATITO Non-Admin Reason: Patient Refused Divalproex Sodium (Divalproex Sodium Sprinkles 125 Mg ) 500 mg PO BID [facility] Escitalopram Oxalate (Escitalopram Oxalate 20 Mg Tablet) 20 mg PO DAILY [facility] Last Admin: 06/29/24 08:41 Dose: 20 mg Documented By: DILMA Haloperidol (Haloperidol 1 Mg Tablet) 2 mg PO BID@1500,2100 [facility] Last Admin: 06/29/24 21:08 Dose: 2 mg Documented By: GATITO Haloperidol (Haloperidol 1 Mg Tablet) 2 mg PO BID PRN PRN Reason: agitation Last Admin: 06/30/24 03:41 Dose: 2 mg Documented By: GATITO Haloperidol Lactate (Haloperidol Lactate 5 Mg/Ml Vial) 2.5 mg IM Q4H PRN PRN Reason: severe agitation Last Admin: 06/28/24 03:35 Dose: 2.5 mg Documented By: JUAN Losartan Potassium (Losartan Potassium 25 Mg Tablet) 25 mg PO DAILY [facility]; Protocol Last Admin: 06/29/24 08:41 Dose: 25 mg Documented By: DILMA Magnesium Hydroxide (Milk Of Magnesia 30 Ml Oral.Susp) 30 ml PO DAILY PRN PRN Reason: Constipation Melatonin (Melatonin 3 Mg Tablet) 6 mg PO BEDTIME [facility] Last Admin: 06/29/24 21:07 Dose: 6 mg Documented By: GATITO Ondansetron HCl (Ondansetron Hcl 4 Mg/2 Ml Vial) 4 mg IVPUSH Q8H PRN PRN Reason: Nausea and Vomiting Polyethylene Glycol (Polyethylene Glycol 3350 17 Gm Powd.Pack) 17 gm PO DAILY [facility] Last Admin: 06/29/24 09:20 Dose: Not Given Documented By: DILMA Non-Admin Reason: Patient Refused Propranolol HCl (Propranolol Hcl 10 Mg Tablet) 10 mg PO TID [facility]; Protocol Last Admin: 06/29/24 21:11 Dose: 10 mg Documented By: GATITO Rivaroxaban (Rivaroxaban 20 Mg Tablet) 20 mg PO DAILY@1700 [facility] Last Admin: 06/29/24 17:05 Dose: 20 mg Documented By: DILMA Senna/Docusate Sodium (Sennosides/Docusate Sodium Tablet) 1 tab PO BID [facility] Last Admin: 06/29/24 21:00 Dose: Not Given Documented By: GATITO Non-Admin Reason: Patient Condition Contraindication Sodium Chloride (0.9 % Sodium Chloride Flush 3 Ml Syringe) 3 ml IVFLUSH QSHIFT [facility] Last Admin: 06/30/24 07:38 Dose: Not Given Documented By: ALDAIR Non-Admin Reason: Previously Administered Trazodone HCl (Trazodone Hcl 50 Mg Tablet) 50 mg PO BEDTIME MRX1 PRN PRN Reason: Insomnia Last Admin: 06/27/24 03:08 Dose: 50 mg Documented By: DONNA Trazodone HCl (Trazodone Hcl 100 Mg Tablet) 100 mg PO BEDTIME [facility] Last Admin: 06/29/24 21:07 Dose: 100 mg Documented By: GATITO Labs 06/26/24 11:46 06/26/24 11:46 Assessment and Plan (1) Alzheimer dementia with agitation: Status: Acute (2) Grand mal seizure: Status: Acute Plan 59yo M with 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 LOOM STARTER called 06/26/24 for witnessed grand mal seizure. Grand mal seizure and possible recent absence seizures Neuro following s/p depakote load with IV, now on depakote 500mg BID po no further seizure activity EEG results pending FTD/Alzheimer dementia with behavioral agitation escitalopram, propranolol, trazodone, prn haloperidol care team>rec return to psych hx mitral valve repair Xarelto HTN amlodipine, losartan, propranolol HLD atorvastatin VTE prophylaxis Xarelto Attending Dr. Jos vargas return to [place] when bed available In my clinical judgment, the patient requires continued inpatient hospitalization for the following reasons: antiepileptic load, behavioral agitation Total time managing care of this patient today: 40 minutes. Quality Stroke Does the patient have a stroke diagnosis?: No VTE Prior VTE?: No VTE Risk Level:: Medical - moderate - high VTE Device Contraindication: N/A - Device Ordered VTE Drug Contraindication: N/A - Med Ordered
--- NOTE | 2024-06-30 10:45 | MHC.CARE ---
[facility] [place] [facility] bed [facility] was completed for this pt. There are no beds available at this time so the search will be exhausted. Referral was faxed to the following facilities' waitlist. [facility]
[2024-06-30 12:00] VITALS: BP 108/65; PULSE 68; RESP 18; TEMP 36.4; O2SAT 96
--- NOTE | 2024-06-30 14:50 | PC.NURSE ---
per CHAIRMAN & CHIEF EXECUTIVE OFFICER ok to administer PRN haldol early for pt agitation
--- NOTE | 2024-06-30 15:28 | MHC.CM.PN ---
Patient was evaluated by the [facility] yesterday. He does qualify for [facility]. The patient will transfer to [facility] once a bed is available. Transport via .
[2024-06-30 16:00] VITALS: BP 95/59; PULSE 69; RESP 20; TEMP 36.8; O2SAT 96
[2024-06-30] MEDS: Rivaroxaban 20 MG TABLET PO (16:25)
[2024-06-30 19:56] VITALS: BP 117/61; PULSE 70; RESP 20; TEMP 36.5; O2SAT 96
[2024-06-30] MEDS: traZODone HCL 100 MG TABLET PO (21:04)
[2024-06-30] MEDS: Melatonin 3 MG TABLET 6 MG PO (21:04)
[2024-06-30] MEDS: 0.9 % Sodium Chloride Flush 3 ML SYRINGE IVFLUSH ×2 (21:05)
[2024-07-01] VITALS (8 sets, daily range): BP systolic 93–120; BP diastolic 61–78; PULSE 58–87; RESP 16–20; TEMP 36.1–36.4; O2SAT 95–99
[2024-07-01] MEDS: polyethylene glycoL 3350 17 GM POWD.PACK PO (08:41)
[2024-07-01] MEDS: Divalproex Sodium Sprinkles 125 MG CAP.DR.SPR 500 MG PO ×2 (08:41→22:37)
[2024-07-01] MEDS: Propranolol HCL 10 MG TABLET PO ×3 (08:41→23:00)
[2024-07-01] MEDS: Escitalopram Oxalate 20 MG TABLET PO (08:41)
[2024-07-01] MEDS: Sennosides/Docusate Sodium TABLET 1 TAB PO ×2 (08:41→22:38)
[2024-07-01] MEDS: Atorvastatin Calcium 80 MG TABLET PO (08:41)
[2024-07-01] MEDS: 0.9 % Sodium Chloride Flush 3 ML SYRINGE IVFLUSH ×2 (08:41→16:47)
[2024-07-01] MEDS: Losartan Potassium 25 MG TABLET PO (08:41)
--- NOTE | 2024-07-01 11:59 | P.DS_ITS ---
DS: Providers Provider Date of Service: 07/01/24 Date of admission: 06/26/24 10:55 Date of discharge: 07/01/24 Primary care physician: Deyanira Schilling NP Consults: 06/26/24 10:48 Consult to Neurology Routine Consulting Provider: [facility] Reason for consultation: new-onset grand mal seizure 06/26/24 11:11 Consult for Sitter Routine Reason for consultation: agitation 06/29/24 13:13 Consult to Care Team Routine Comment: Reason for consultation: medically clear 06/30/24 09:55 Consult to Psychiatry Routine Consulting Provider: Psych Covering Reason for consultation: Follow from [facility] Attending physician on discharge: Lóepz Arguello Discharging clinician: Gerri Mitchell DS: Diagnosis Discharge Diagnosis (1) Alzheimer dementia with agitation: Status: Acute (2) Grand mal seizure: Status: Acute DS: Summary Hospital Course Hospital Course: History and physical as per admitting provider. Mr. Mendez is a 59 year-old male with hx of frontotemporal dementia who was brought to the [facility] on 06/10/24 from the [facility], where he's lived since April, due to combative behaviors that were threatening to the staff. In the ED, he was given IM Zyprexa and Versed due to agitation and violent behavior. The ED physician called the patient's p sychiatric LANGUAGE TUTOR Deyanira Schilling, who was concerned the patient was experiencing absence seizures that then triggered aggressive behavior. She recommended oxcarbazepine 150 mg daily to increase to 250 mg bid. She also recommended Ativan over antipsychotics due to history of ADD. He was admitted to the geriatric psychiatry service 06/15/24 for behavioral stabilization. Review of course on that unit per LANGUAGE TUTOR Fabiola Velez: 06/19- change meds to liquid see if more able to be consistent- my guess is that intermittent spitting out meds maybe why he struggled partly on transition to [facility]. 06/20- change haldol to olanzapine zydis- for a day to see if that is more helpful - 06/21 d/c olanzapine, he had this medication last week with more confusion and sedation. Will add propanolol 5mg po TID- some degree of akathisia and restless which could be related to progression of frontotemporal. restart haldol 2mg po BID, prn doses. no EPS on exam. 06/22 continue current medications 06/23 propanolol increased to 10mg po TID 06/24 continue tx. diet upgraded to regular consistency with continued thin liquids and direct supervision. 06/25 dulcolax for constipation. monitor constipation, no BM since 06/20. may need water tap enema. MARINE HABITAT RESOURCE SPECIALIST called this AM for witnessed generalized/tonic-clonic seizure lasting approx 2-3 min after which the patient was observed to be postictal; snoring respirations but protecting his airway with gag reflex. He was lowered by staff to the ground and did not hit his head. BP 105/56, RR 16, P 92, SaO2 94 on RA. Blood glucose 124. Nasal trumpet placed. Pt sent to CT scan then to telemetry unit. Current pt is confused and intermittently trying to get out of bed, which is his current baseline per his and sons. He does not have a history of seizure disorder. No fever. Otherwise unable to obtain ROS. Grand mal seizure and possible recent absence seizures Seen by neurology. s/p depakote load with IV, now on depakote 500mg BID po no further seizure activity. EEG unremarkable FTD/Alzheimer dementia with behavioral agitation escitalopram, propranolol, trazodone, prn haloperidol care team recommended returne to inpatient psych hx mitral valve repair Continue anticoagulation with Xarelto HTN bp soft, norvasc has been on hold, will stop hold losartan; follow blood pressure continue propranolol HLD atorvastatin Time Attestation Discharge Coordination Time (in mins): 35 Quality: Safe Use of Opioids Does Pt have an Active Cancer Diagnosis on the Problem List?: No Quality: Stroke Does the patient have a stroke diagnosis?: No Physical Exam Vital Signs: Vital Signs: Last Vital Signs Temp 96.9 F 07/01/24 08:00 Pulse 67 07/01/24 08:00 Resp 18 07/01/24 08:00 BP 117/65 07/01/24 08:00 Pulse Ox 99 07/01/24 08:00 O2 Del Method Room Air 07/01/24 08:00 Const: General: alert, awake and confusion Nutritional Appearance: thin Orientation/consciousness: confusion Resp: Effort & Inspection: normal respiratory effort, able to speak in complete sentences, no respiratory distress and no use of accessory muscles Cardio: Rate: regular rate GI: Inspection: No distended Palpation (GI): Soft to palpation Neuro: General: confusion Extrem: General: Yes no pedal edema Discharge Plan Discharge Anticipated Discharge Date/Time: 07/01/24 12:37 Patient Disposition: Xfer Psychiatric Hosp Discharge Diagnosis: Grand mal seizure Discharge Medications: New divalproex 500 mg Tablet,Delayed Release (Dr/Ec) 500 mg PO BID Qty: 60 0RF Continued Xarelto 20 mg Tablet 20 mg PO DAILY@1700 Qty: 0 0RF atorvastatin 80 mg Tablet 80 mg PO DAILY Qty: 0 0RF acetaminophen 325 mg Tablet 650 mg PO Q6H PRN (Reason: Headache/Pain Mild Scale (1-3)) Qty: 0 0RF trazodone 50 mg Tablet 50 mg PO BEDTIME MRX1 PRN (Reason: Insomnia) Qty: 0 0RF haloperidol 1 mg Tablet 2 mg PO BID@1500,2100 Qty: 0 0RF trazodone 100 mg Tablet 100 mg PO BEDTIME Qty: 0 0RF benztropine 1 mg Tablet 1 mg PO BID PRN (Reason: EPS) Qty: 0 0RF bisacodyl 5 mg Tablet,Delayed Release (Dr/Ec) 10 mg PO BEDTIME Qty: 0 0RF escitalopram oxalate 20 mg Tablet 20 mg PO DAILY Qty: 0 0RF MAG-AL 200-200 mg/5 mL Suspension 30 ml PO Q6H PRN (Reason: Heartburn/Nausea) Qty: 0 0RF magnesium hydroxide [Milk of Magnesia] 400 mg/5 mL Suspension 30 ml PO DAILY PRN (Reason: Constipation) Qty: 0 0RF polyethylene glycol 3350 17 gram Powder In Packet 17 g PO DAILY Qty: 0 0RF sennosides-docusate sodium [Senna Plus] 8.6-50 mg Tablet 1 tab PO BID Qty: 0 0RF melatonin 3 mg Tablet 6 mg PO BEDTIME Qty: 0 0RF haloperidol 1 mg Tablet 2 mg PO BID PRN (Reason: agitation) Qty: 0 0RF propranolol 10 mg Tablet 10 mg PO TID Qty: 0 0RF Protocol: Hold for SBP/HR < HOLD for SBP < : 90 HOLD for HR < : 60 Held losartan 25 mg Tablet 25 mg PO DAILY Qty: 0 0RF Hold Instructions: hold for soft bp. Protocol: Hold for SBP< HOLD for SBP < : 90 Discontinued amlodipine 2.5 mg Tablet 2.5 mg PO DAILY Qty: 0 0RF Protocol: Hold for SBP< HOLD for SBP < : 90 oxcarbazepine 300 mg Tablet 300 mg PO BID Qty: 0 0RF Discharge Orders: Discharge Order (Routine); Ordered 07/01/24 Ordered By: Gerri Mitchell Diet: Advance to usual diet Activity on Discharge: As tolerated Stand Alone Forms: Patient Portal Discharge page Print Language: Yakut Care Plan Goals: Transfer to psychiatric care for continued mental health treatment Health Concerns: Grand mal seizure Plan of Treatment: started on depakote - no further seizures soft bp - norvasc stopped. losartan on hold, resume if bp elevated Follow-up with primary care provider as needed Take all medications as prescribed Assessment: See discharge summary
--- NOTE | 2024-07-01 12:48 | MHC.CM.PN ---
Addendum entered by Beatriz Clarke 07/02/24 08:35: Patient did not transfer to [facility] as planned yesterday. Addendum entered by Beatriz Clarke 07/01/24 14:22: Patient discharged to [facility]. Original Note: Per MD rounds the transfer to [facility] is anticipated today.
[2024-07-01] MEDS: HaloperidoL 1 MG TABLET 2 MG PO ×2 (14:24→22:37)
[2024-07-01 15:31] LABS: Ammonia 56 umol/L (13-55)
--- NOTE | 2024-07-01 15:56 | P.PNIM_ITS ---
Subjective Subjective Date of Service: 07/01/24 Interval History: Seen and examined this morning Follow-up for seizure Patient observed sitting up in bed, awake, alert Unable to obtain ROS as patient is primarily nonverbal at baseline Physical Exam 2 Vital Signs: Vital Signs: Last Vital Signs Temp 97.5 F 07/01/24 15:33 Pulse 74 07/01/24 15:33 Resp 20 07/01/24 15:33 BP 115/75 07/01/24 15:33 Pulse Ox 98 07/01/24 15:33 O2 Del Method Room Air 07/01/24 15:33 Const: General: comfortable, no acute distress, alert and awake Nutritional Appearance: average body habitus Resp: Effort & Inspection: normal respiratory effort, able to speak in complete sentences, no respiratory distress and no use of accessory muscles Cardio: Rate: regular rate Neuro: General: moves all extremities Objective Data Active Medications Acetaminophen (Acetaminophen 325 Mg Tablet) 650 mg PO Q6H PRN PRN Reason: Pain, Mild (Pain Scale 1-3), fever or headache Al Hydroxide/Mg Hydroxide (Magnesium Hydrox/Alum Hydrox 30 Ml Oral.Susp) 30 ml PO Q6H PRN PRN Reason: Heartburn/Nausea Atorvastatin Calcium (Atorvastatin Calcium 80 Mg Tablet) 80 mg PO DAILY COUNTS INCLUDE 234 BEDS AT THE [facility] Last Admin: 07/01/24 08:41 Dose: 80 mg Documented By: LISA Benztropine Mesylate (Benztropine Mesylate 1 Mg Tablet) 1 mg PO BID PRN PRN Reason: EPS Bisacodyl (Bisacodyl 5 Mg Tablet.) 10 mg PO BEDTIME COUNTS INCLUDE 234 BEDS AT THE [facility] Last Admin: 06/30/24 21:14 Dose: Not Given Documented By: GATITO Non-Admin Reason: Patient Refused Comments: pt spit out Divalproex Sodium (Divalproex Sodium Sprinkles 125 Mg ) 500 mg PO BID COUNTS INCLUDE 234 BEDS AT THE [facility] Last Admin: 07/01/24 08:41 Dose: 500 mg Documented By: LISA Escitalopram Oxalate (Escitalopram Oxalate 20 Mg Tablet) 20 mg PO DAILY COUNTS INCLUDE 234 BEDS AT THE [facility] Last Admin: 07/01/24 08:41 Dose: 20 mg Documented By: LISA Haloperidol (Haloperidol 1 Mg Tablet) 2 mg PO BID@1500,2100 COUNTS INCLUDE 234 BEDS AT THE [facility] Last Admin: 07/01/24 14:24 Dose: 2 mg Documented By: LISA Haloperidol (Haloperidol 1 Mg Tablet) 2 mg PO BID PRN PRN Reason: agitation Last Admin: 06/30/24 14:18 Dose: 2 mg Documented By: ALDAIR Haloperidol Lactate (Haloperidol Lactate 5 Mg/Ml Vial) 2.5 mg IM Q4H PRN PRN Reason: severe agitation Last Admin: 06/28/24 03:35 Dose: 2.5 mg Documented By: JUAN Losartan Potassium (Losartan Potassium 25 Mg Tablet) 25 mg PO DAILY COUNTS INCLUDE 234 BEDS AT THE [facility]; Protocol Last Admin: 07/01/24 08:41 Dose: 25 mg Documented By: LISA Magnesium Hydroxide (Milk Of Magnesia 30 Ml Oral.Susp) 30 ml PO DAILY PRN PRN Reason: Constipation Melatonin (Melatonin 3 Mg Tablet) 6 mg PO BEDTIME COUNTS INCLUDE 234 BEDS AT THE [facility] Last Admin: 06/30/24 21:04 Dose: 6 mg Documented By: GATITO Ondansetron HCl (Ondansetron Hcl 4 Mg/2 Ml Vial) 4 mg IVPUSH Q8H PRN PRN Reason: Nausea and Vomiting Polyethylene Glycol (Polyethylene Glycol 3350 17 Gm Powd.Pack) 17 gm PO DAILY COUNTS INCLUDE 234 BEDS AT THE [facility] Last Admin: 07/01/24 08:41 Dose: 17 gm Documented By: LISA Propranolol HCl (Propranolol Hcl 10 Mg Tablet) 10 mg PO TID COUNTS INCLUDE 234 BEDS AT THE [facility]; Protocol Last Admin: 07/01/24 14:23 Dose: 10 mg Documented By: LISA Rivaroxaban (Rivaroxaban 20 Mg Tablet) 20 mg PO DAILY@1700 COUNTS INCLUDE 234 BEDS AT THE [facility] Last Admin: 06/30/24 16:25 Dose: 20 mg Documented By: ALDAIR Senna/Docusate Sodium (Sennosides/Docusate Sodium Tablet) 1 tab PO BID COUNTS INCLUDE 234 BEDS AT THE [facility] Last Admin: 07/01/24 08:41 Dose: 1 tab Documented By: LISA Sodium Chloride (0.9 % Sodium Chloride Flush 3 Ml Syringe) 3 ml IVFLUSH QSHIFT COUNTS INCLUDE 234 BEDS AT THE [facility] Last Admin: 07/01/24 08:41 Dose: 3 ml Documented By: LISA Trazodone HCl (Trazodone Hcl 50 Mg Tablet) 50 mg PO BEDTIME MRX1 PRN PRN Reason: Insomnia Last Admin: 06/27/24 03:08 Dose: 50 mg Documented By: DONNA Trazodone HCl (Trazodone Hcl 100 Mg Tablet) 100 mg PO BEDTIME COUNTS INCLUDE 234 BEDS AT THE [facility] Last Admin: 06/30/24 21:04 Dose: 100 mg Documented By: GATITO Labs 06/26/24 11:46 06/26/24 11:46 Labs: Laboratory Results - last 24 hr 07/01/24 15:15 Ammonia 56 H Assessment and Plan (1) Grand mal seizure: Status: Acute (2) Frontotemporal dementia with behavioral disturbance: Status: Acute Plan 59yo M with 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 GAS MASK ASSEMBLER called 06/26/24 for witnessed grand mal seizure. Grand mal seizure and possible recent absence seizures Neuro following s/p depakote load with IV, now on depakote 500mg BID po no further seizure activity EEG results pending FTD/Alzheimer dementia with behavioral agitation escitalopram, propranolol, trazodone, prn haloperidol care team>rec return to psych hx mitral valve repair Xarelto HTN amlodipine, losartan, propranolol HLD atorvastatin VTE prophylaxis Xarelto Attending Dr. Jos vargas return to [facility] when bed available In my clinical judgment, the patient requires continued inpatient hospitalization for the following reasons: safe disposition Quality Stroke Does the patient have a stroke diagnosis?: No VTE Prior VTE?: No VTE Risk Level:: Medical - moderate - high VTE Device Contraindication: N/A - Device Ordered VTE Drug Contraindication: N/A - Med Ordered
[2024-07-01] MEDS: Rivaroxaban 20 MG TABLET PO (16:46)
[2024-07-01] MEDS: traZODone HCL 100 MG TABLET PO (22:37)
[2024-07-01] MEDS: Melatonin 3 MG TABLET 6 MG PO (22:37)
[2024-07-01] MEDS: bisacodyL 5 MG TABLET.DR 10 MG PO (22:37)
[2024-07-02 03:24] VITALS: BP 108/74; PULSE 64; RESP 20; TEMP 36; O2SAT 100
[2024-07-02 08:00] VITALS: BP 100/75; PULSE 78; RESP 16; TEMP 36.1; O2SAT 97
[2024-07-02] MEDS: 0.9 % Sodium Chloride Flush 3 ML SYRINGE IVFLUSH (10:43)
[2024-07-02] MEDS: polyethylene glycoL 3350 17 GM POWD.PACK PO (10:44)
[2024-07-02] MEDS: Atorvastatin Calcium 80 MG TABLET PO (11:02)
[2024-07-02 11:04] VITALS: BP 96/65; PULSE 63
[2024-07-02] MEDS: Escitalopram Oxalate 20 MG TABLET PO (11:04)
[2024-07-02] MEDS: Sennosides/Docusate Sodium TABLET 1 TAB PO (11:04)
[2024-07-02] MEDS: Propranolol HCL 10 MG TABLET PO (11:04)
[2024-07-02] MEDS: Divalproex Sodium Sprinkles 125 MG CAP.DR.SPR 500 MG PO (11:06)
[2024-07-02 11:58] VITALS: BP 118/76; PULSE 71; RESP 20; TEMP 36; O2SAT 99
--- NOTE | 2024-07-02 12:42 | MHC.CM.PN ---
Per MD rounds DP Transfer to [facility] once an open bed becomes available. The transfer was delayed yesterday, because a planned discharge on the [facility] unit was cancelled 07/01/24.
--- NOTE | 2024-07-02 15:43 | PC.NURSE ---
Pt alert and ambulating unit with family and sitter w/steady gait. He needs gentle redirection 2/2 confusion as he occasionally attempts to enter others rooms. Pt being transferred to [facility]. Report called to Dasia, Pt transporting with sitter, , and charge nurse. He has belongings in care of staff also going with him.
== END 2024-07-02 15:31 | DRG 101 ==
PROVIDERS: Nurse Practitioner Acute Care; Social Worker; Admitting Provider Family Medicine; PCP Nurse Practitioner Family; Visit Provider Physician Assistant Medical
DX: G40.409 Other generalized epilepsy and epileptic syndromes, not intractable, without status epilepticus (principal); F02.C11 Dementia in other diseases classified elsewhere, severe, with agitation; G31.09 Other frontotemporal neurocognitive disorder; G30.0 Alzheimer's disease with early onset; I10 Essential (primary) hypertension; E78.5 Hyperlipidemia, unspecified; Z95.2 Presence of prosthetic heart valve; Z79.01 Long term (current) use of anticoagulants; Z79.899 Other long term (current) drug therapy
CPT/HCPCS: 36415; 80053; 80164; 81001; 82140; 83605; 83735; 84443; 85025; 86140; 95816; J1630; J1953; S9485

== ENCOUNTER → 2024-06-26 10:55 | Outpatient (BNV) | payer MEDICARE, SELFPAY | PROVIDERS: Admitting Provider Family Medicine; Visit Provider Family Medicine | DX: G40.409 Other generalized epilepsy and epileptic syndromes, not intractable, without status epilepticus (principal); G31.09 Other frontotemporal neurocognitive disorder; F02.818 Dementia in other diseases classified elsewhere, unspecified severity, with other behavioral disturbance | CPT/HCPCS: 99223; 99231; 99232; 99499 ==

== ENCOUNTER → 2024-06-26 10:55 | Outpatient (BNV) | payer MEDICARE, SELFPAY | PROVIDERS: Admitting Provider Family Medicine; Visit Provider Psychiatry & Neurology Neurology | DX: G40.409 Other generalized epilepsy and epileptic syndromes, not intractable, without status epilepticus (principal); G30.0 Alzheimer's disease with early onset; F02.C11 Dementia in other diseases classified elsewhere, severe, with agitation | CPT/HCPCS: 99222 ==

== ENCOUNTER 2024-07-02 15:36 | Inpatient (IN) | payer MEDICARE, SELFPAY ==
--- NOTE | 2024-07-02 13:02 | P.HPPS_ITS ---
HPI Date of Service: 07/02/24 Chief Complaint: combative behaviors Sources of Information: patient interviewed, chart reviewed and crisis/core team assessment reviewed HPI Subjective Notes: Conditional Voluntary Narrative: Mr. Mendez is a 59 year-old male with hx of early onset AD/frontotemporal dementia who was initially admitted to [facility] on 06/15 due to combative behaviors. He was transferred to medical floor due to witness grand mal seizure. He was seen by neurology, started on depakote. His BP has been low- amlodipine was discontinued. He was continued on lozartan. While he was on the [facility] psych unit, it was noted that he was sensitive to the effects of certain medications including olanzapine, which even low doses seem to make him more sedated and confused as well as benzodiazepines. He seemed to respond well to haldol and propanolol. On the unit, pt pacing going up and down. He is not combative. He has severe expressive and receptive aphasia. He has been sleeping for the past few night. No evidence of combative behaviors. 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 Trauma History: none Diagnostics Labs 07/03/24 07:21 Meds/Allergies Allergies Allergies Allergy/AdvReac Type Severity Reaction Status Date / Time No Known Allergies Allergy Verified 06/10/24 22:24 [No Known Allergies*] Mental Status Exam Mental Status Exam Narrative: Appearance: wearing hospital gown, brief eye contact, poor attention Behavior: not engaging in much conversation Psychomotor: some restlessness Speech: severe receptive and expressive aphasia Mood: unable to assess Affect: somewhat restless SI: unable to assess HI: unable to assess but not signs of it Insight/judgment: impaired x 2. memory/cog: alert, due to severe aphasia unable to assess orientation. severe impairments, not able to follow directions. Assessment & Plan Assessment & Plan (1) Alzheimer dementia with agitation: Status: Acute Qualifiers: Alzheimer's disease onset: early onset Dementia severity: severe Q ualified Code(s): G30.0 - Alzheimer's disease with early onset; F02.C11 - Dementia in other diseases classified elsewhere, severe, with agitation Code(s): G30.9 - Alzheimer's disease, unspecified; F02.811 - Dementia in other diseases classified elsewhere, unspecified severity, with agitation (2) Frontotemporal dementia with behavioral disturbance: Status: Acute Code(s): G31.09 - Other frontotemporal neurocognitive disorder; F02.818 - Dementia in other diseases classified elsewhere, unspecified severity, with other behavioral disturbance Plan Mr. Mendez is a 59 year-old male with early onset AD/frontotemporal Dementia with severe expressive/receptive aphasia who initially was admitted to [facility] on 06/15 due to combative behaviors at the [facility] where he resides. He was transferred to medicine due to witnessed grand mal seizure. He was started on depakote. Trileptal was discontinued. Plan to further stabilize combative behaviors and coordinate transfer back to the [facility]. PLAN 1. Admit to S1, cv by HCP. 1:1 for unsteady gait 2. continue propanolol, haldol. 3. recheck ammonia, since he is on depakote. 4. after care planning. Patient educated on: diagnosis (HCP) and medication risk/benefits (HCP) Reason for continued inpatient stay Substantial Risk for: inability to function Statement Statement: I have reviewed the history and physical and performed a pertinent examination on my patient. No changes have occurred unless specified. If the History and Physical was not performed prior to admission, the Hospitalist's service will be consulted for completing the admission physical. Time Spent With Patient Time: Total time managing care of this patient today ____ minutes.
[2024-07-02] MEDS: Rivaroxaban 20 MG TABLET PO (17:08)
[2024-07-02 17:21] VITALS: BP 137/74; PULSE 87; RESP 20; TEMP 36; O2SAT 99
--- NOTE | 2024-07-02 17:44 | PC.ADMIT ---
Patient was re-admitted onto our unit at 16:04 after being medically cleared [place] [facility] to continue management of aggressive behaviors r/t dementia. Patient is on a CV by HCP and will continue on his 1:1 for the time being for safety. Patient is A&O to self only and unable to participate in admission assessment. Skin check completed with another nurse (skin is warm dry and intact, small scattered bruising noted on BLLE), vitals obtained and WNL. Upon arriving onto the unit, patient was very restless, appeared drowsy with his eyes closed upon interactions, but stayed in his bed only for a brief period before getting up and pacing the halls. Patient takes medications crushed in pudding/applesauce with no issues.
[2024-07-02 20:00] VITALS: BP 115/73; PULSE 71; RESP 18; TEMP 36.4; O2SAT 100
[2024-07-02] MEDS: Divalproex Sodium 500 MG TABLET.DR PO (20:44)
[2024-07-02] MEDS: Sennosides/Docusate Sodium TABLET 1 TAB PO (20:45)
[2024-07-02] MEDS: Melatonin 3 MG TABLET 6 MG PO (20:45)
[2024-07-02] MEDS: HaloperidoL 1 MG TABLET 2 MG PO (20:45)
[2024-07-02] MEDS: Propranolol HCL 10 MG TABLET PO (20:45)
[2024-07-02] MEDS: traZODone HCL 100 MG TABLET PO (20:45)
--- NOTE | 2024-07-03 06:45 | HO.PSYADMNOT ---
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 Trauma History: none Diagnostics Vital Signs (24Hr): Vital Signs - 24 hr 07/02/24 17:21 07/02/24 20:00 Temperature 96.8 F 97.6 F Pulse Rate 87 71 Respiratory Rate 20 18 Blood Pressure 137/74 115/73 Pulse Oximetry 99 100 Oxygen Delivery Method Room Air Room Air Meds/Allergies Allergies Allergies Allergy/AdvReac Type Severity Reaction Status Date / Time No Known Allergies Allergy Verified 06/10/24 22:24 [No Known Allergies*] Assessment & Plan Statement Statement: I have reviewed the history and physical and performed a pertinent examination on my patient. No changes have occurred unless specified. If the History and Physical was not performed prior to admission, the Hospitalist's service will be consulted for completing the admission physical. Time Spent With Patient Time: Total time managing care of this patient today ____ minutes.
[2024-07-03 07:34] LABS: Ammonia 61 umol/L (13-55)
[2024-07-03 07:48] LABS: Valproate 71.7 mcg/mL (50.0-100.0)
--- NOTE | 2024-07-03 07:48 | HO.PSYCHPN ---
Subjective Subjective Date of Service: 07/03/24 Reason For Visit: combative behaviors Subjective Notes: Conditional Voluntary Healthcare Proxy: Yes Interim History: The nursing staff reported the patient remains on one-to-one, he had been restless and pacing on the hallways. He slept 8 hours. On interview the patient is confused, erratic but redirectable. Mental Status Exam Mental Status Exam Patient Appearance: Appropriate Patient Orientation: Person Level of Consciousness: Awake Patient Behavior: Guarded and Passive Mood Description: Withdrawn Affect Description: Constricted Patient Cognition Impaired: Yes Ability to Follow Directions: Good Speech Pattern: Clear Hallucinations: None Delusions: Ideas of Reference Thought Process: Distracted and Slowed Thinking Thought Content: positive for Poverty of Content and positive for Thought Blocking Judgement: Poor Diagnostics Vital Signs (24Hr): Vital Signs - 24 hr 07/02/24 17:21 07/02/24 20:00 Temperature 96.8 F 97.6 F Pulse Rate 87 71 Respiratory Rate 20 18 Blood Pressure 137/74 115/73 Pulse Oximetry 99 100 Oxygen Delivery Method Room Air Room Air Labs 07/03/24 07:21 Labs: Laboratory Results - last 48 hr 07/03/24 07:21 Ammonia 61 H Medications Medications Current Medications Acetaminophen (Acetaminophen 325 Mg Tablet) 650 mg PO Q6H PRN PRN Reason: Headache/Pain Mild Scale (1-3) Al Hydroxide/Mg Hydroxide (Magnesium Hydrox/Alum Hydrox 30 Ml Oral.Susp) 30 ml PO Q6H PRN PRN Reason: Heartburn/Nausea Atorvastatin Calcium (Atorvastatin Calcium 80 Mg Tablet) 80 mg PO DAILY [facility] Divalproex Sodium (Divalproex Sodium 500 Mg Tablet.Dr) 500 mg PO BID [facility] Last Admin: 07/02/24 20:44 Dose: 500 mg Escitalopram Oxalate (Escitalopram Oxalate 20 Mg Tablet) 20 mg PO DAILY [facility] Haloperidol (Haloperidol 1 Mg Tablet) 2 mg PO BID PRN PRN Reason: agitation Haloperidol (Haloperidol 1 Mg Tablet) 2 mg PO BID@1500,2100 [facility] Last Admin: 07/02/24 20:45 Dose: 2 mg Losartan Potassium (Losartan Potassium 25 Mg Tablet) 25 mg PO DAILY [facility]; Protocol Magnesium Hydroxide (Milk Of Magnesia 30 Ml Oral.Susp) 30 ml PO DAILY PRN PRN Reason: Constipation Melatonin (Melatonin 3 Mg Tablet) 6 mg PO BEDTIME [facility] Last Admin: 07/02/24 20:45 Dose: 6 mg Propranolol HCl (Propranolol Hcl 10 Mg Tablet) 10 mg PO TID [facility]; Protocol Last Admin: 07/02/24 20:45 Dose: 10 mg Rivaroxaban (Rivaroxaban 20 Mg Tablet) 20 mg PO DAILY@1700 [facility] Last Admin: 07/02/24 17:08 Dose: 20 mg Senna/Docusate Sodium (Sennosides/Docusate Sodium Tablet) 1 tab PO BID [facility] Last Admin: 07/02/24 20:45 Dose: 1 tab Trazodone HCl (Trazodone Hcl 50 Mg Tablet) 50 mg PO BEDTIME MRX1 PRN PRN Reason: Insomnia Trazodone HCl (Trazodone Hcl 100 Mg Tablet) 100 mg PO BEDTIME [facility] Last Admin: 07/02/24 20:45 Dose: 100 mg Allergies Allergies Allergy/AdvReac Type Severity Reaction Status Date / Time No Known Allergies Allergy Verified 06/10/24 22:24 [No Known Allergies*] Assessment & Plan Assessment & Plan (1) Alzheimer dementia with agitation: Qualifiers: Alzheimer's disease onset: early onset Dementia severity: severe Qualified Code(s): G30.0 - Alzheimer's disease with early onset; F02.C11 - Dementia in other diseases classified elsewhere, severe, with agitation Status: Acute Code(s): G30.9 - Alzheimer's disease, unspecified; F02.811 - Dementia in other diseases classified elsewhere, unspecified severity, with agitation (2) Frontotemporal dementia with behavioral disturbance: Status: Acute Code(s): G31.09 - Other frontotemporal neurocognitive disorder; F02.818 - Dementia in other diseases classified elsewhere, unspecified severity, with other behavioral disturbance Plan Mr. Mendez is a 59 year-old male with early onset AD/frontotemporal Dementia with severe expressive/receptive aphasia who initially was admitted to [facility] on 06/15 due to combative behaviors at the [facility] where he resides. He was transferred to medicine due to witnessed grand mal seizure. He was started on depakote. Trileptal was discontinued. Plan to further stabilize combative behaviors and coordinate transfer back to the [facility]. PLAN 1. Admit to S1, cv by HCP. 1:1 for unsteady gait 2. continue propanolol, haldol. 3. recheck ammonia, since he is on depakote. 4. after care planning. Reason for continued inpatient stay Substantial Risk for: inability to function, rapid decompensation and med/psych decompensation Time Spent With Patient Time: Total time managing care of this patient today __20__ minutes.
[2024-07-03 07:58] LABS: Alanine Aminotransferase 19 U/L (0-40); Albumin Level 3.3 g/dL (3.5-5.0); Alkaline Phosphatase 91 U/L (39-117); Anion Gap 11 (12-20); Aspartate Amino Transferase 18 U/L (5-37); Bilirubin Total 0.4 mg/dL (0.0-1.0); Blood Urea Nitrogen 16 mg/dL (9-16); Calcium 8.7 mg/dL (8.4-10.2); Carbon Dioxide 25 mmol/L (22-29); Chloride 107 mmol/L (96-108); Estimated Glomerular Filt Rate > 60; Glucose Fasting 86 mg/dL (60-99); Sodium 139 mmol/L (135-145); Total Protein 5.6 g/dL (6.5-8.0)
[2024-07-03 08:00] VITALS: BP 140/74; PULSE 71; RESP 16; TEMP 36.1; O2SAT 96
--- NOTE | 2024-07-03 08:16 | PC.NURSE ---
Addendum entered by Dilcia Quiles RN 07/03/24 10:32: Per Dr. Ramos, Depakote tablet discontinued and new order for Depakote sprinkles to start tonight. Addendum entered by Dilcia Quiles RN 07/03/24 08:33: New orders received for one dose of Lactulose this am. Per Dr. Ramos - scheduled daily doses to start tomorrow. Original Note: Dr. Ramos notified of elevated ammonia level. Per Dr. Ramos, continue with scheduled Depakote with plan to start Lactulose tonight.
[2024-07-03] MEDS: Propranolol HCL 10 MG TABLET PO ×3 (09:32→20:23)
[2024-07-03] MEDS: Lactulose 20 GM/30 ML SOLUTION 10 GM PO (09:33)
[2024-07-03] MEDS: Losartan Potassium 25 MG TABLET PO (09:33)
[2024-07-03] MEDS: Sennosides/Docusate Sodium TABLET 1 TAB PO ×2 (09:33→20:23)
[2024-07-03] MEDS: Atorvastatin Calcium 80 MG TABLET PO (09:33)
[2024-07-03] MEDS: Escitalopram Oxalate 20 MG TABLET PO (09:34)
[2024-07-03 15:20] VITALS: BP 102/61; PULSE 79
[2024-07-03] MEDS: HaloperidoL 1 MG TABLET 2 MG PO ×2 (15:22→20:23)
[2024-07-03] MEDS: Rivaroxaban 20 MG TABLET PO (16:24)
[2024-07-03 20:00] VITALS: BP 135/78; PULSE 72; RESP 18; TEMP 35.8; O2SAT 94
[2024-07-03 20:23] VITALS: BP 135/78; PULSE 72
[2024-07-03] MEDS: traZODone HCL 100 MG TABLET PO (20:23)
[2024-07-03] MEDS: Divalproex Sodium Sprinkles 125 MG CAP.DR.SPR 500 MG PO (20:24)
[2024-07-03] MEDS: Melatonin 3 MG TABLET 6 MG PO (20:24)
--- NOTE | 2024-07-04 06:30 | P.PNPSI_ITS ---
Subjective Subjective Date of Service: 07/04/24 Reason For Visit: combative behaviors Subjective Notes: Conditional Voluntary Healthcare Proxy: Yes Interim History: The nursing staff reported the patient had been wandering in the unit, he is on one-to-one for safety. Restless at times pacing in the hallways. On interview the patient looks nonsensical. Easily redirectable on one-to-one. Mental Status Exam Mental Status Exam Patient Appearance: Appropriate Patient Orientation: Person Level of Consciousness: Awake Patient Behavior: Guarded and Passive Mood Description: Withdrawn Affect Description: Constricted Patient Cognition Impaired: Yes Ability to Follow Directions: Good Speech Pattern: Clear Hallucinations: None Delusions: Grandiose Thought Process: Distracted and Slowed Thinking Thought Content: positive for Poverty of Content and positive for Thought Blocking Judgement: Poor Diagnostics Vital Signs (24Hr): Vital Signs - 24 hr 07/03/24 08:00 07/03/24 15:20 07/03/24 20:00 Temperature 96.9 F 96.4 F L Pulse Rate 71 79 72 Respiratory Rate 16 18 Blood Pressure 140/74 H 102/61 135/78 Pulse Oximetry 96 94 Oxygen Delivery Method Room Air Room Air 07/03/24 20:23 Temperature Pulse Rate 72 Respiratory Rate Blood Pressure 135/78 Pulse Oximetry Oxygen Delivery Method Labs 07/03/24 07:21 Labs: Laboratory Results - last 48 hr 07/03/24 07:21 Sodium 139 Potassium 4.0 Chloride 107 Carbon Dioxide 25 Anion Gap 11 L BUN 16 Creatinine 0.87 Estim Creat Clear Calc TNP Estimated GFR > 60 Fasting Glucose 86 Calcium 8.7 Total Bilirubin 0.4 AST 18 ALT 19 Alkaline Phosphatase 91 Ammonia 61 H Total Protein 5.6 L Albumin 3.3 L Valproic Acid 71.7 Medications Medications Current Medications Acetaminophen (Acetaminophen 325 Mg Tablet) 650 mg PO Q6H PRN PRN Reason: Headache/Pain Mild Scale (1-3) Al Hydroxide/Mg Hydroxide (Magnesium Hydrox/Alum Hydrox 30 Ml Oral.Susp) 30 ml PO Q6H PRN PRN Reason: Heartburn/Nausea Atorvastatin Calcium (Atorvastatin Calcium 80 Mg Tablet) 80 mg PO DAILY [facility] Last Admin: 07/03/24 09:33 Dose: 80 mg Divalproex Sodium (Divalproex Sodium Sprinkles 125 Mg ) 500 mg PO BID [facility] Last Admin: 10/19/24 20:24 Dose: 500 mg Escitalopram Oxalate (Escitalopram Oxalate 20 Mg Tablet) 20 mg PO DAILY [facility] Last Admin: 07/03/24 09:34 Dose: 20 mg Haloperidol (Haloperidol 1 Mg Tablet) 2 mg PO BID PRN PRN Reason: agitation Haloperidol (Haloperidol 1 Mg Tablet) 2 mg PO BID@1500,2100 [facility] Last Admin: 07/03/24 20:23 Dose: 2 mg Lactulose (Lactulose 20 Gm/30 Ml Solution) 10 gm PO DAILY [facility] Last Admin: 07/03/24 08:32 Dose: Not Given Losartan Potassium (Losartan Potassium 25 Mg Tablet) 25 mg PO DAILY [facility]; Protocol Last Admin: 07/03/24 09:33 Dose: 25 mg Magnesium Hydroxide (Milk Of Magnesia 30 Ml Oral.Susp) 30 ml PO DAILY PRN PRN Reason: Constipation Melatonin (Melatonin 3 Mg Tablet) 6 mg PO BEDTIME [facility] Last Admin: 07/03/24 20:24 Dose: 6 mg Propranolol HCl (Propranolol Hcl 10 Mg Tablet) 10 mg PO TID [facility]; Protocol Last Admin: 07/03/24 20:23 Dose: 10 mg Rivaroxaban (Rivaroxaban 20 Mg Tablet) 20 mg PO DAILY@1700 [facility] Last Admin: 07/03/24 16:24 Dose: 20 mg Senna/Docusate Sodium (Sennosides/Docusate Sodium Tablet) 1 tab PO BID [facility] Last Admin: 07/03/24 20:23 Dose: 1 tab Trazodone HCl (Trazodone Hcl 50 Mg Tablet) 50 mg PO BEDTIME MRX1 PRN PRN Reason: Insomnia Trazodone HCl (Trazodone Hcl 100 Mg Tablet) 100 mg PO BEDTIME [facility] Last Admin: 07/03/24 20:23 Dose: 100 mg Allergies Allergies Allergy/AdvReac Type Severity Reaction Status Date / Time No Known Allergies Allergy Verified 06/10/24 22:24 [No Known Allergies*] Assessment & Plan Assessment & Plan (1) Alzheimer dementia with agitation: Qualifiers: Alzheimer's disease onset: early onset Dementia severity: severe Q ualified Code(s): G30.0 - Alzheimer's disease with early onset; F02.C11 - Dementia in other diseases classified elsewhere, severe, with agitation Status: Acute Code(s): G30.9 - Alzheimer's disease, unspecified; F02.811 - Dementia in other diseases classified elsewhere, unspecified severity, with agitation (2) Frontotemporal dementia with behavioral disturbance: Status: Acute Code(s): G31.09 - Other frontotemporal neurocognitive disorder; F02.818 - Dementia in other diseases classified elsewhere, unspecified severity, with other behavioral disturbance Plan Mr. Mendez is a 59 year-old male with early onset AD/frontotemporal Dementia with severe expressive/receptive aphasia who initially was admitted to [facility] on 06/15 due to combative behaviors at the [facility] where he resides. He was transferred to medicine due to witnessed grand mal seizure. He was started on depakote. Trileptal was discontinued. Plan to further stabilize combative behaviors and coordinate transfer back to the [facility]. PLAN 1. Admit to S1, cv by HCP. 1:1 for unsteady gait 2. continue propanolol, haldol. 3. recheck ammonia, since he is on depakote. 4. after care planning. Reason for continued inpatient stay Substantial Risk for: inability to function, rapid decompensation and med/psych decompensation Time Spent With Patient Time: Total time managing care of this patient today __20__ minutes.
[2024-07-04 08:00] VITALS: BP 110/69; PULSE 69; RESP 18; TEMP 36.8; O2SAT 98
[2024-07-04] MEDS: Propranolol HCL 10 MG TABLET PO ×3 (08:23→21:10)
[2024-07-04] MEDS: Losartan Potassium 25 MG TABLET PO (08:23)
[2024-07-04] MEDS: Sennosides/Docusate Sodium TABLET 1 TAB PO ×2 (08:23→21:11)
[2024-07-04] MEDS: Escitalopram Oxalate 20 MG TABLET PO (08:23)
[2024-07-04] MEDS: Atorvastatin Calcium 80 MG TABLET PO (08:23)
[2024-07-04] MEDS: Divalproex Sodium Sprinkles 125 MG CAP.DR.SPR 500 MG PO ×2 (08:23→21:10)
[2024-07-04] MEDS: Lactulose 20 GM/30 ML SOLUTION 10 GM PO (08:24)
[2024-07-04] MEDS: HaloperidoL 1 MG TABLET 2 MG PO ×2 (14:58→21:10)
[2024-07-04 16:25] VITALS: BP 108/66; PULSE 74
[2024-07-04] MEDS: Rivaroxaban 20 MG TABLET PO (16:32)
[2024-07-04 20:00] VITALS: BP 120/69; PULSE 73; RESP 18; TEMP 36.8; O2SAT 97
[2024-07-04] MEDS: Melatonin 3 MG TABLET 6 MG PO (21:09)
[2024-07-04] MEDS: traZODone HCL 100 MG TABLET PO (21:10)
[2024-07-04] MEDS: Acetaminophen 325 MG TABLET 650 MG PO (21:11)
[2024-07-04] MEDS: traZODone HCL 50 MG TABLET PO (23:07)
[2024-07-05 08:00] VITALS: BP 133/82; PULSE 63; RESP 16; TEMP 36.7; O2SAT 99
--- NOTE | 2024-07-05 11:30 | PC.NURSE ---
Attempted to give pt his meds crushed in apple sauce. Pt held meds in mouth and refused to swallow. attempted multiple times to coax pt to swallow or spit meds. He took sip of water and also held that. He ambulated to BR hoping to distract and redirect to no avail. suction equipment procured and pts oral cavity suctioned. Pt retained meds in mouth over 20 minutes. no s/s aspiration. once suctioned pt answered w/ 1-2 word answers simple questions. MD Sebastian lima.
[2024-07-05] MEDS: Divalproex Sodium Sprinkles 125 MG CAP.DR.SPR 500 MG PO ×2 (11:34→19:54)
--- NOTE | 2024-07-05 12:14 | P.PNPSI_ITS ---
Subjective Subjective Date of Service: 07/05/24 Reason For Visit: combative behaviors Subjective Notes: Conditional Voluntary Interim History: The nursing staff reported the patient slept 8 hours, he is grossly confused but easily redirectable. On one-to-one observation. On interview the patient was unable to engage in conversation severely demented. Mental Status Exam Mental Status Exam Patient Appearance: Appropriate Patient Orientation: Person and Situation Level of Consciousness: Awake Patient Behavior: Guarded and Passive Mood Description: Withdrawn Affect Description: Constricted Patient Cognition Impaired: Yes Ability to Follow Directions: Good Speech Pattern: Clear Hallucinations: None Delusions: Ideas of Reference Thought Process: Distracted and Slowed Thinking Thought Content: positive for [place] and positive for Poverty of Content Judgement: Fair Diagnostics Vital Signs (24Hr): Vital Signs - 24 hr 07/04/24 16:25 07/04/24 20:00 07/05/24 08:00 Temperature 98.2 F 98.1 F Pulse Rate 74 73 63 Respiratory Rate 18 16 Blood Pressure 108/66 120/69 133/82 Pulse Oximetry 97 99 Oxygen Delivery Method Room Air Room Air Labs 07/03/24 07:21 Medications Medications Current Medications Acetaminophen (Acetaminophen 325 Mg Tablet) 650 mg PO Q6H PRN PRN Reason: Headache/Pain Mild Scale (1-3) Last Admin: 07/04/24 21:11 Dose: 650 mg Al Hydroxide/Mg Hydroxide (Magnesium Hydrox/Alum Hydrox 30 Ml Oral.Susp) 30 ml PO Q6H PRN PRN Reason: Heartburn/Nausea Atorvastatin Calcium (Atorvastatin Calcium 80 Mg Tablet) 80 mg PO DAILY [facility] Last Admin: 07/05/24 10:38 Dose: Not Given Divalproex Sodium (Divalproex Sodium Sprinkles 125 Mg ) 500 mg PO BID [facility] Last Admin: 07/05/24 11:34 Dose: 500 mg Escitalopram Oxalate (Escitalopram Oxalate 20 Mg Tablet) 20 mg PO DAILY [facility] Last Admin: 07/05/24 10:38 Dose: Not Given Haloperidol (Haloperidol 1 Mg Tablet) 2 mg PO BID PRN PRN Reason: agitation Haloperidol (Haloperidol 1 Mg Tablet) 2 mg PO BID@1500,2100 [facility] Last Admin: 07/04/24 21:10 Dose: 2 mg Lactulose (Lactulose 20 Gm/30 Ml Solution) 10 gm PO DAILY [facility] Last Admin: 07/05/24 10:38 Dose: Not Given Losartan Potassium (Losartan Potassium 25 Mg Tablet) 25 mg PO DAILY [facility]; Protocol Last Admin: 07/05/24 10:38 Dose: Not Given Magnesium Hydroxide (Milk Of Magnesia 30 Ml Oral.Susp) 30 ml PO DAILY PRN PRN Reason: Constipation Melatonin (Melatonin 3 Mg Tablet) 6 mg PO BEDTIME [facility] Last Admin: 07/04/24 21:09 Dose: 6 mg Propranolol HCl (Propranolol Hcl 10 Mg Tablet) 10 mg PO TID [facility]; Protocol Last Admin: 07/05/24 10:38 Dose: Not Given Rivaroxaban (Rivaroxaban 20 Mg Tablet) 20 mg PO DAILY@1700 [facility] Last Admin: 07/04/24 16:32 Dose: 20 mg Senna/Docusate Sodium (Sennosides/Docusate Sodium Tablet) 1 tab PO BID [facility] Last Admin: 07/05/24 10:39 Dose: Not Given Trazodone HCl (Trazodone Hcl 50 Mg Tablet) 50 mg PO BEDTIME MRX1 PRN PRN Reason: Insomnia Last Admin: 07/04/24 23:07 Dose: 50 mg Trazodone HCl (Trazodone Hcl 100 Mg Tablet) 100 mg PO BEDTIME [facility] Last Admin: 07/04/24 21:10 Dose: 100 mg Allergies Allergies Allergy/AdvReac Type Severity Reaction Status Date / Time No Known Allergies Allergy Verified 06/10/24 22:24 [No Known Allergies*] Assessment & Plan Assessment & Plan (1) Alzheimer dementia with agitation: Qualifiers: Alzheimer's disease onset: early onset Dementia severity: severe Q ualified Code(s): G30.0 - Alzheimer's disease with early onset; F02.C11 - Dementia in other diseases classified elsewhere, severe, with agitation Status: Acute Code(s): G30.9 - Alzheimer's disease, unspecified; F02.811 - Dementia in other diseases classified elsewhere, unspecified severity, with agitation (2) Frontotemporal dementia with behavioral disturbance: Status: Acute Code(s): G31.09 - Other frontotemporal neurocognitive disorder; F02.818 - Dementia in other diseases classified elsewhere, unspecified severity, with other behavioral disturbance Plan Mr. Mendez is a 59 year-old male with early onset AD/frontotemporal Dementia with severe expressive/receptive aphasia who initially was admitted to [facility] on 06/15 due to combative behaviors at the [facility] where he resides. He was transferred to medicine due to witnessed grand mal seizure. He was started on depakote. Trileptal was discontinued. Plan to further stabilize combative behaviors and coordinate transfer back to the [facility]. PLAN 1. Admit to S1, cv by HCP. 1:1 for unsteady gait 2. continue propanolol, haldol. 3. recheck ammonia, since he is on depakote. 4. after care planning. Reason for continued inpatient stay Substantial Risk for: inability to function, rapid decompensation and med/psych decompensation Time Spent With Patient Time: Total time managing care of this patient today __20__ minutes.
[2024-07-05 13:10] VITALS: BMI 24.4
[2024-07-05 14:17] VITALS: BP 123/74; PULSE 67
[2024-07-05] MEDS: HaloperidoL 1 MG TABLET 2 MG PO ×2 (14:22→19:55)
[2024-07-05] MEDS: Propranolol HCL 10 MG TABLET PO ×2 (14:23→19:55)
[2024-07-05] MEDS: Flu Vacc TS2024-25(6mos up)/PF 0.5 ML SYRINGE IM (14:26)
[2024-07-05] MEDS: Rivaroxaban 20 MG TABLET PO (17:44)
[2024-07-05 19:53] VITALS: BP 128/78; PULSE 73; RESP 18; TEMP 36.1; O2SAT 96
[2024-07-05] MEDS: Melatonin 3 MG TABLET 6 MG PO (19:54)
[2024-07-05 19:55] VITALS: BP 128/78; PULSE 73
[2024-07-05] MEDS: traZODone HCL 100 MG TABLET PO (19:55)
[2024-07-05] MEDS: Sennosides/Docusate Sodium TABLET 1 TAB PO (19:56)
[2024-07-06 08:00] VITALS: BP 134/81; PULSE 73; RESP 16; TEMP 36.7; O2SAT 99
--- NOTE | 2024-07-06 08:47 | P.PNPSI_ITS ---
Subjective Subjective Date of Service: 07/06/24 Reason For Visit: combative behaviors Subjective Notes: Conditional Voluntary Healthcare Proxy: Yes Interim History: Pt slept through he night. He has been pacing, no behavioral concerns. Recheck of ammonia- 45. taking medications crush with applesauce. Diagnostics Vital Signs (24Hr): Vital Signs - 24 hr 07/05/24 14:17 07/05/24 19:53 07/05/24 19:55 Temperature 97 F Pulse Rate 67 73 73 Respiratory Rate 18 Blood Pressure 123/74 128/78 128/78 Pulse Oximetry 96 Oxygen Delivery Method Room Air BMI result Body Mass Index 24.4 Labs 07/03/24 07:21 Medications Medications Current Medications Acetaminophen (Acetaminophen 325 Mg Tablet) 650 mg PO Q6H PRN PRN Reason: Headache/Pain Mild Scale (1-3) Last Admin: 07/04/24 21:11 Dose: 650 mg Al Hydroxide/Mg Hydroxide (Magnesium Hydrox/Alum Hydrox 30 Ml Oral.Susp) 30 ml PO Q6H PRN PRN Reason: Heartburn/Nausea Atorvastatin Calcium (Atorvastatin Calcium 80 Mg Tablet) 80 mg PO DAILY [facility] Last Admin: 07/05/24 10:38 Dose: Not Given Divalproex Sodium (Divalproex Sodium Sprinkles 125 Mg ) 500 mg PO BID [facility] Last Admin: 07/05/24 19:54 Dose: 500 mg Escitalopram Oxalate (Escitalopram Oxalate 20 Mg Tablet) 20 mg PO DAILY [facility] Last Admin: 07/05/24 10:38 Dose: Not Given Haloperidol (Haloperidol 1 Mg Tablet) 2 mg PO BID PRN PRN Reason: agitation Haloperidol (Haloperidol 1 Mg Tablet) 2 mg PO BID@1500,2100 [facility] Last Admin: 07/05/24 19:55 Dose: 2 mg Lactulose (Lactulose 20 Gm/30 Ml Solution) 10 gm PO DAILY [facility] Last Admin: 07/05/24 10:38 Dose: Not Given Losartan Potassium (Losartan Potassium 25 Mg Tablet) 25 mg PO DAILY [facility]; Protocol Last Admin: 07/05/24 10:38 Dose: Not Given Magnesium Hydroxide (Milk Of Magnesia 30 Ml Oral.Susp) 30 ml PO DAILY PRN PRN Reason: Constipation Melatonin (Melatonin 3 Mg Tablet) 6 mg PO BEDTIME [facility] Last Admin: 07/05/24 19:54 Dose: 6 mg Propranolol HCl (Propranolol Hcl 10 Mg Tablet) 10 mg PO TID [facility]; Protocol Last Admin: 07/05/24 19:55 Dose: 10 mg Rivaroxaban (Rivaroxaban 20 Mg Tablet) 20 mg PO DAILY@1700 [facility] Last Admin: 07/05/24 17:44 Dose: 20 mg Senna/Docusate Sodium (Sennosides/Docusate Sodium Tablet) 1 tab PO BID [facility] Last Admin: 07/05/24 19:56 Dose: 1 tab Trazodone HCl (Trazodone Hcl 50 Mg Tablet) 50 mg PO BEDTIME MRX1 PRN PRN Reason: Insomnia Last Admin: 07/04/24 23:07 Dose: 50 mg Trazodone HCl (Trazodone Hcl 100 Mg Tablet) 100 mg PO BEDTIME [facility] Last Admin: 07/05/24 19:55 Dose: 100 mg Allergies Allergies Allergy/AdvReac Type Severity Reaction Status Date / Time No Known Allergies Allergy Verified 06/10/24 22:24 [No Known Allergies*] Assessment & Plan Assessment & Plan (1) Alzheimer dementia with agitation: Qualifiers: Alzheimer's disease onset: early onset Dementia severity: severe Q ualified Code(s): G30.0 - Alzheimer's disease with early onset; F02.C11 - Dementia in other diseases classified elsewhere, severe, with agitation Status: Acute Code(s): G30.9 - Alzheimer's disease, unspecified; F02.811 - Dementia in other diseases classified elsewhere, unspecified severity, with agitation (2) Frontotemporal dementia with behavioral disturbance: Status: Acute Code(s): G31.09 - Other frontotemporal neurocognitive disorder; F02.818 - Dementia in other diseases classified elsewhere, unspecified severity, with other behavioral disturbance Plan Mr. Mendez is a 59 year-old male with early onset AD/frontotemporal Dementia with severe expressive/receptive aphasia who initially was admitted to [facility] on 06/15 due to combative behaviors at the [facility] where he resides. He was transferred to medicine due to witnessed grand mal seizure. He was started on depakote. Trileptal was discontinued. Plan to further stabilize combative behaviors and coordinate transfer back to the [facility]. PLAN 07/06 rechecked ammonia 45. d/c tomorrow. Reason for continued inpatient stay Substantial Risk for: inability to function Time Spent With Patient Time: Total time managing care of this patient today ____ minutes.
[2024-07-06] MEDS: Atorvastatin Calcium 80 MG TABLET PO (09:02)
[2024-07-06] MEDS: Lactulose 20 GM/30 ML SOLUTION 10 GM PO (09:03)
--- NOTE | 2024-07-06 10:24 | PC.NURSE ---
Pt refused all of his medications this morning. Meds were crushed and mixed in applesauce and pt attempted to open mouth and take meds but was unable to do so. Pt was non-verbal, not offering a reason for not accepting meds. Spent about 30-45 mins with pt trying to administer meds however pt did not take them. Fabiola Velez NP made aware in report.
[2024-07-06 13:19] LABS: Ammonia 45 umol/L (13-55)
[2024-07-06] MEDS: HaloperidoL 1 MG TABLET 2 MG PO ×2 (14:11→19:49)
[2024-07-06 14:12] VITALS: BP 106/70; PULSE 78
[2024-07-06] MEDS: Propranolol HCL 10 MG TABLET PO ×2 (14:12→19:49)
[2024-07-06] MEDS: Rivaroxaban 20 MG TABLET PO (17:06)
[2024-07-06 19:46] VITALS: BP 110/76; PULSE 76; RESP 18; TEMP 36.6; O2SAT 96
[2024-07-06] MEDS: Divalproex Sodium Sprinkles 125 MG CAP.DR.SPR 500 MG PO (19:48)
[2024-07-06 19:49] VITALS: BP 110/76; PULSE 76
[2024-07-06] MEDS: Melatonin 3 MG TABLET 6 MG PO (19:49)
[2024-07-06] MEDS: Sennosides/Docusate Sodium TABLET 1 TAB PO (19:49)
[2024-07-06] MEDS: traZODone HCL 50 MG TABLET 150 MG PO (19:49)
[2024-07-07 08:00] VITALS: BP 126/72; PULSE 68; TEMP 36.2; O2SAT 99
[2024-07-07] MEDS: Divalproex Sodium Sprinkles 125 MG CAP.DR.SPR 500 MG PO (08:15)
[2024-07-07] MEDS: Atorvastatin Calcium 80 MG TABLET PO (08:17)
[2024-07-07 08:18] VITALS: BP 126/72
[2024-07-07] MEDS: Sennosides/Docusate Sodium TABLET 1 TAB PO (08:18)
[2024-07-07] MEDS: Losartan Potassium 25 MG TABLET PO (08:18)
[2024-07-07] MEDS: Escitalopram Oxalate 20 MG TABLET PO (08:18)
[2024-07-07 08:19] VITALS: BP 126/72; PULSE 66
[2024-07-07] MEDS: Propranolol HCL 10 MG TABLET PO (08:19)
[2024-07-07] MEDS: Pyridoxine HCl (Vitamin B6) 50 MG TABLET 25 MG PO (08:19)
[2024-07-07] MEDS: Lactulose 20 GM/30 ML SOLUTION 10 GM PO (08:26)
[2024-07-07 08:57] VITALS: RESP 17
--- NOTE | 2024-07-07 09:49 | PM.PSYDC ---
DS: Providers Provider Date of Service: 07/07/24 Date of admission: 07/02/24 15:36 Date of discharge: 07/07/24 Primary care physician: Unknown Physician Discharging clinician: Fabiola Velez DS: Diagnosis Discharge Diagnosis (1) Alzheimer dementia with agitation: Status: Acute (2) Frontotemporal dementia with behavioral disturbance: Status: Acute DS: Medications Discharge Medications Home Medications: Previous Rx's ?Medication ?Instructions ?Recorded atorvastatin 80 mg tablet 80 mg PO DAILY #30 tabs 07/07/24 divalproex 125 mg capsule,delayed 500 mg (4 x 125 mg) PO BID #240 07/07/24 release sprinkle caps escitalopram oxalate 20 mg tablet 20 mg PO DAILY #30 tabs 07/07/24 haloperidol 1 mg tablet 2 mg (2 x 1 mg) PO BID@1500,1900 07/07/24 #120 tabs lactulose 10 gram/15 mL oral 10 g (15 mL) PO BEDTIME #3,785 mL 07/07/24 solution losartan 25 mg tablet 25 mg PO DAILY #30 tabs 07/07/24 melatonin 3 mg tablet 6 mg (2 x 3 mg) PO BEDTIME #60 tabs 07/07/24 propranolol 10 mg tablet 10 mg PO TID #90 tabs 07/07/24 pyridoxine (vitamin B6) 50 mg 25 mg (1/2 x 50 mg) PO DAILY #30 07/07/24 tablet tabs rivaroxaban 20 mg tablet (Xarelto) 20 mg PO DAILY@1700 #30 tabs 07/07/24 trazodone 150 mg tablet 150 mg PO BEDTIME #30 tabs 07/07/24 Mental Status Exam Mental Status Exam Narrative: Appearance: wearing hospital gown, brief eye contact, poor attention Behavior: not engaging in much conversation Psychomotor: some restlessness Speech: severe receptive and expressive aphasia Mood: unable to assess Affect: somewhat restless SI: unable to assess HI: unable to assess but not signs of it Insight/judgment: impaired x 2. memory/cog: alert, due to severe aphasia unable to assess orientation. severe impairments, not able to follow directions. Data Data Completed and Pending Completed studies during hospitalization [Text1]: 07/03/24 07/06/24 07:21 13:01 Sodium 139 Potassium 4.0 Chloride 107 Carbon Dioxide 25 Anion Gap 11 L BUN 16 Creatinine 0.87 Estim Creat Clear Calc TNP Estimated GFR > 60 Fasting Glucose 86 Calcium 8.7 Total Bilirubin 0.4 AST 18 ALT 19 Alkaline Phosphatase 91 Ammonia 61 H 45 Total Protein 5.6 L Albumin 3.3 L Valproic Acid 71.7 DS: Summary Hospital Course Hospital Course: Mr. Mendez is a 59 year-old male with hx of early onset AD/frontotemporal dementia who was initially admitted to [facility] on 06/15 due to combative behaviors. He was transferred to medical floor due to witness grand mal seizure. He was seen by neurology, started on depakote. His BP has been low- amlodipine was discontinued. He was continued on lozartan. While he was on the [facility] psych unit, it was noted that he was sensitive to the effects of certain medications including olanzapine, which even low doses seem to make him more sedated and confused as well as benzodiazepines. He seemed to respond well to haldol and propanolol. On the unit, pt pacing going up and down. He is not combative. He has severe expressive and receptive aphasia. He has been sleeping for the past few night. No evidence of combative behaviors. Past Psychiatric History: Inpt: none OP: Deyanira Drake NP HOSPITAL COURSE On the unit, pt was admitted on a CV signed by HCP. Pt presented as calm, pacing, severe expressive and receptive aphasia. He was continued on depakote recently added while on medical floor for grand mal seizures. Depakote level was 71.7. Ammonia initially slightly elevated 61, lactulose 10mg po daily was added. Ammonia normalized 45. During this hospital course, he was sleeping through the night. He did not have any combative behaviors. He was eating well. He was taking medications as prescribed. He was continued on low dose haldol, which worked much better than olanzapine and seroquel due to severe sedation even with low doses. He was continued on propanolol which seem to calm him down significantly. During medical admission, he was noted to be hypotensive. Amlodipine was discontinued and was kept on losartan. His BP has been stable SBP 120-130. Status at Discharge Cognitive/behavioral status at discharge: Pt with calm affect, ambulating without difficulties. No signs of EPS. Sleeping and eating well. Severe receptive and expressive aphasia. Functional status at discharge: independent ambulation Overall status at discharge: patient is back to baseline Time Spent with Patient Time attestation: Total time managing care of this patient today _35___ minutes. Time spent: Greater than 30 minutes Discharge Plan Discharge Anticipated Discharge Date/Time: 07/07/24 09:30 Patient Disposition: Home, Self-Care Discharge Diagnosis: AD Frontotemporal Dementia Referrals: Physician,Unknown J [Primary Care Provider] - 1 Week Discharge Medications: New Xarelto 20 mg Tablet 20 mg PO DAILY@1700 Qty: 30 0RF atorvastatin 80 mg Tablet 80 mg PO DAILY Qty: 30 0RF haloperidol 1 mg Tablet 2 mg PO BID@1500,1900 Qty: 120 0RF propranolol 10 mg Tablet 10 mg PO TID Qty: 90 0RF Protocol: Hold for SBP/HR < HOLD for SBP < : 90 HOLD for HR < : 60 losartan 25 mg Tablet 25 mg PO DAILY Qty: 30 0RF Protocol: Hold for SBP< HOLD for SBP < : 90 divalproex 125 mg Capsule, Delayed Rel Sprinkle 500 mg PO BID Qty: 240 0RF escitalopram oxalate 20 mg Tablet 20 mg PO DAILY Qty: 30 0RF trazodone 150 mg tablet 150 mg PO BEDTIME Qty: 30 0RF lactulose 10 gram/15 mL solution 10 g PO BEDTIME Qty: 3785 0RF melatonin 3 mg Tablet 6 mg PO BEDTIME Qty: 60 0RF pyridoxine (vitamin B6) 50 mg Tablet 25 mg PO DAILY Qty: 30 0RF Discontinued Xarelto 20 mg Tablet 20 mg PO DAILY@1700 Qty: 0 0RF atorvastatin 80 mg Tablet 80 mg PO DAILY Qty: 0 0RF acetaminophen 325 mg Tablet 650 mg PO Q6H PRN (Reason: Headache/Pain Mild Scale (1-3)) Qty: 0 0RF losartan 25 mg Tablet 25 mg PO DAILY Qty: 0 0RF Protocol: Hold for SBP< HOLD for SBP < : 90 trazodone 50 mg Tablet 50 mg PO BEDTIME MRX1 PRN (Reason: Insomnia) Qty: 0 0RF haloperidol 1 mg Tablet 2 mg PO BID@1500,2100 Qty: 0 0RF trazodone 100 mg Tablet 100 mg PO BEDTIME Qty: 0 0RF benztropine 1 mg Tablet 1 mg PO BID PRN (Reason: EPS) Qty: 0 0RF bisacodyl 5 mg Tablet,Delayed Release (Dr/Ec) 10 mg PO BEDTIME Qty: 0 0RF escitalopram oxalate 20 mg Tablet 20 mg PO DAILY Qty: 0 0RF MAG-AL 200-200 mg/5 mL Suspension 30 ml PO Q6H PRN (Reason: Heartburn/Nausea) Qty: 0 0RF magnesium hydroxide [Milk of Magnesia] 400 mg/5 mL Suspension 30 ml PO DAILY PRN (Reason: Constipation) Qty: 0 0RF polyethylene glycol 3350 17 gram Powder In Packet 17 g PO DAILY Qty: 0 0RF sennosides-docusate sodium [Senna Plus] 8.6-50 mg Tablet 1 tab PO BID Qty: 0 0RF melatonin 3 mg Tablet 6 mg PO BEDTIME Qty: 0 0RF haloperidol 1 mg Tablet 2 mg PO BID PRN (Reason: agitation) Qty: 0 0RF propranolol 10 mg Tablet 10 mg PO TID Qty: 0 0RF Protocol: Hold for SBP/HR < HOLD for SBP < : 90 HOLD for HR < : 60 divalproex 500 mg Tablet,Delayed Release (Dr/Ec) 500 mg PO BID Qty: 60 0RF Discharge Orders: Discharge Order (Routine); Ordered 07/07/24 Ordered By: Fabiola Velez Diet: thin liquids Activity on Discharge: As tolerated Stand Alone Forms: Patient Portal Discharge page Print Language: Italian Care Plan Goals: 1. Maintain mood 2. No aggression towards self or others Health Concerns: Follow up with PCP for regular care Plan of Treatment: 1. take medications as prescribed 2. Call 911 or go to nearest ED in event of emergency Assessment: Pt with calm affect. No behavioral concerns. Pacing. severe expressive and receptive aphasia. sleeping and eating well.
== END 2024-07-07 12:56 | disposition home or self-care (01) | DRG 57 ==
PROVIDERS: Admitting Provider Social Worker; Visit Provider Social Worker
DX: G30.0 Alzheimer's disease with early onset (principal); F02.811 Dementia in other diseases classified elsewhere, unspecified severity, with agitation; R47.01 Aphasia; G31.09 Other frontotemporal neurocognitive disorder; Z95.2 Presence of prosthetic heart valve; Z23 Encounter for immunization; Z79.01 Long term (current) use of anticoagulants; Z79.899 Other long term (current) drug therapy
CPT/HCPCS: 36415; 80053; 80164; 82140; 90656

== ENCOUNTER → 2024-07-02 15:36 | Outpatient (BNV) | payer MEDICARE, SELFPAY | PROVIDERS: Admitting Provider Social Worker; Visit Provider Psychiatry & Neurology Psychiatry | DX: G30.0 Alzheimer's disease with early onset (principal); F02.C11 Dementia in other diseases classified elsewhere, severe, with agitation; G31.09 Other frontotemporal neurocognitive disorder; F02.818 Dementia in other diseases classified elsewhere, unspecified severity, with other behavioral disturbance | CPT/HCPCS: 90792; 99231; 99232; 99239 ==